=== PATIENT | female | born 1995 | race Caucasian/White ===

== ENCOUNTER 2022-01-25 21:48 | Emergency (ER) | payer OTHER, SELFPAY ==
[2022-01-25 21:49] VITALS: BP 127/86; PULSE 88; RESP 18; TEMP 37.2; O2SAT 98; BMI 25.0
[2022-01-25] MEDS: MethylPREDNISolone 125 MG/2 ML Vial IV (22:43)
[2022-01-25] MEDS: DiphenhydrAMINE 50 MG/ML Syringe IV (22:43)
[2022-01-25] MEDS: Famotidine 200 MG/20 ML MDV 40 MG in 0.9% Normal Saline (Pres. free 6 ML 300 MG IV (22:43)
--- NOTE | 2022-01-26 00:09 | EDS_ITS ---
HPI History of Present Illness Chief Complaint: Allergic Reaction Narrative Narrative: Patient is a 27-year-old female with no significant past medical history. She states today she felt very congested and was sneezing very often. She states about an hour prior to arrival she was just sitting at home trying to go to sleep when she fell like her lower lip was swollen. She states she looked in the mirror and this confirmed the lower lip swelling. She denies any trouble breathing or swallowing and she denies any known new exposures. She also denies any family history of hereditary angioedema but with the sudden onset lip swelling comes in for evaluation [facility] Medical History no medical history Home Medications prednisone 20 mg tablet 40 mg PO DAILY 5 days #10 tabs 01/26/22 [Rx Last Taken Unknown] Allergy/AdvReac Type Severity Reaction Status Date / Time Penicillins AdvReac Vomiting Verified 01/25/22 21:55 Social History Smoking Status: Never smoker [facility] ED Constitutional Constitutional ED: Denies chills or fever(s) ENT ENT ED: Reports other Details: Positive lower lip swelling ; Denies sore throat Cardiovascular Cardiovascular: Denies chest pain Respiratory/Chest Respiratory/Chest: Denies cough or dyspnea Gastrointestinal Gastrointestinal: Denies abdominal pain, diarrhea, nausea or vomiting Genitourinary Genitourinary ED: Denies dysuria Musculoskeletal Musculoskeletal: Denies myalgias Integumentary Denies rash Neurologic Neurologic: Denies headache(s) Hematologic/Lymphatic Hematologic/Lymphatic: Denies easy bleeding or easy bruising EXAM Physical Exam Const Vital Signs: 01/25/22 21:49 01/26/22 00:16 Temperature 98.9 F Temperature Source Temporal Pulse Rate 88 76 Respiratory Rate 18 16 Blood Pressure 127/86 H 92/72 Blood Pressure Mean 99 78 Pulse Ox 98 98 Oxygen Delivery Method Room Air Room Air Positive well nourished and well developed General Appearance ED: well developed HEENT Reports moist mucous membranes HEENT Narrative: There is swelling to the left half of the lower lip. Otherwise there is no tongue swelling no oral lesions no airway edema or compromise. Eyes PERRL and EOMs intact bilaterally Neck supple Resp normal respiratory effort and clear to auscultation bilaterally Cardio regular rate and regular rhythm Extremity normal to inspection Neuro oriented x3 and CN's II-XII intact bilaterally Sensorium / Orientation: alert Psych mental status grossly normal Skin no rashes or lesions noted Skin Narrative: Soft tissue swelling to the left lower lip as documented above MDM MDM MDM Narrative Medical decision making narrative: Patient presented to the ER in no acute respiratory distress but did have left lower lip swelling. As she was not in respiratory distress and did not have signs of systemic reaction I felt no need for epinephrine. Patient was given Solu-Medrol Benadryl and Pepcid secondary to the reaction. She was watched in the ER for approximately 1 hour and did have resolution of the lip swelling. She also remained in no acute respiratory distress. Therefore this time as patient has no signs of respiratory distress and resolution of symptoms she is otherwise safe for discharge Discharge Plan Triage Chief Complaint: Allergic Reaction ED Provider: Yassine Luo Dx/Rx/DC Orders Clinical Impression: Acute allergic reaction Instructions: ED Allergic Reaction Local Other Prescriptions: New prednisone 20 mg tablet 40 mg PO DAILY 5 Days Qty: 10 0RF Primary Care Provider: Care Physician,No Primary Referrals: Mikie Stovall MD [Med Staff - [employer]] - 3-5 Days if not improving Care Physician,No Primary [Primary Care Provider] - Activity Restrictions/Additional Instructions: Please take the prednisone as directed to control any further allergic reaction/inflammation. You may also take 1 Benadryl up to 3 times a day and also use 1 20mg Pepcid twice a day if you need further allergic reaction control Disposition Disposition: Home, Self Care Discharge Date/Time: 01/26/22 00:19
[2022-01-26 00:16] VITALS: BP 92/72; PULSE 76; RESP 16; O2SAT 98
== END 2022-01-26 00:19 | disposition home or self-care (01) ==
PROVIDERS: Emergency Provider Emergency Medicine; Visit Provider Emergency Medicine
DX: T78.40XA Allergy, unspecified, initial encounter (principal); X58.XXXA Exposure to other specified factors, initial encounter
CPT/HCPCS: 96374; 96375; 99281; J3490

== ENCOUNTER 2023-07-20 22:48 | Emergency (ER) | payer OTHER, SELFPAY ==
[2023-07-20 22:49] VITALS: BP 114/78; PULSE 92; RESP 16; TEMP 36.4; O2SAT 98; BMI 28.3
--- NOTE | 2023-07-20 22:54 | ED.VIS.CHEST ---
HPI History of Present Illness Chief Complaint: Chest Pain Informant: patient Onset/Context/Timing Onset: Today (30 to 40 minutes prior to arrival) Activity at onset: sudden Timing: Continuous Quality: Positive for Sharp Location: Substernal and Right Parasternal Worsened By: Movement of Arm and Movement of Torso Relieved By: Nothing Associated Symptoms: Positive for Nausea and Palpitations; Negative for Vomiting, Diaphoresis, Dyspnea, Cough, Fever, Lightheadedness or Acid Reflux Narrative Narrative: Patient presents with chest pain that began approximately 30 to 40 minutes prior to arrival. Patient states it began rather suddenly. Patient states it began while she laid down to go to bed. Patient states the pain is over the substernal and right parasternal area. Patient states it is worse with certain movements. Patient admits to some nausea but denies any vomiting. Patient admits to some palpitations where she felt like her heart was racing. Patient denies any lightheadedness or dizziness. Patient denies any shortness of breath or cough. Patient denies any fevers or chills. CVD Risk Factors: Negative for Hypertension, Diabetes, Hypercholesterolemia, Family History 1' </=55 or Smoking PE Risk Factors: Negative for Recent Travel/Surgery, Recent Immobilization, Prior DVT or PE or Cancer PFSH PFSH Medical History no medical history no medical history Home Medications drospirenone 3 mg-ethinyl estradiol 0.02 mg tablet (Lo-Zumandimine (28)) 1 tab PO DAILY 07/20/23 [History Last Taken Unknown] Allergy/AdvReac Type Severity Reaction Status Date / Time Penicillins AdvReac Vomiting Verified 07/20/23 22:51 Family History no significant family his no significant family history Surgical History no surgical history no surgical history Social History Smoking Status: Never smoker ROS ROS ED Constitutional Constitutional ED: Denies chills or fever(s) Eyes Eyes: Denies blurry vision or change in vision ENT ENT ED: Denies rhinorrhea or sore throat Cardiovascular Cardiovascular: Reports chest pain, palpitations and racing heartbeat Respiratory/Chest Respiratory/Chest: Denies cough or dyspnea Gastrointestinal Gastrointestinal: Reports nausea; Denies vomiting Genitourinary Genitourinary ED: Denies dysuria or hematuria Musculoskeletal Musculoskeletal: Reports back pain; Denies neck pain Integumentary Denies abscess or rash Neurologic Neurologic: Denies headache(s) or weakness Allergic/Immunologic Allergic/Immunologic ED: Denies mouth swelling or urticaria EXAM Physical Exam Const Vital Signs: 07/20/23 22:49 07/20/23 22:57 07/20/23 23:49 Temperature 97.5 F L Temperature Source Temporal Pulse Rate 92 73 Respiratory Rate 16 15 Respiratory Effort Normal Non-Labored Blood Pressure 114/78 Blood Pressure Mean 90 Pulse Ox 98 98 Oxygen Delivery Method Room Air Room Air 07/21/23 00:49 07/21/23 01:49 Temperature Temperature Source Pulse Rate 72 73 Respiratory Rate 17 16 Respiratory Effort Blood Pressure 105/66 Blood Pressure Mean 79 Pulse Ox 98 98 Oxygen Delivery Method Room Air Room Air Positive well nourished and well developed General Appearance ED: well developed and NAD HEENT Reports moist mucous membranes Neck supple and no JVD Chest Wall Chest Narrative: There is tenderness to palpation over the right parasternal area. There is no bony crepitance or step-off. There is no edema or ecchymosis noted. Chest: tenderness Resp normal respiratory effort and clear to auscultation bilaterally Cardio regular rate and regular rhythm GI soft to palpation, non-tender and non-distended Neuro oriented x3, CN's II-XII intact bilaterally and no sensory deficits noted Sensorium / Orientation: awake and alert Motor Exam: strength 5/5 throughout Skin no rashes or lesions noted Heart Score History: Slightly/Non-Suspicious ECG: Normal Age: </= 45 years Risk Factors: No Risk Factors Troponin: </= Normal Limit Score: 0 MDM MDM MDM Narrative Medical decision making narrative: Differential diagnosis includes cardiac dysrhythmia, cardiac ischemia, pneumonia, pneumothorax, musculoskeletal pain, anxiety, gastroesophageal reflux disease, cholecystitis, cholelithiasis, pancreatitis, peptic ulcer disease, and duodenal ulcer. EKG will be obtained to assess for cardiac dysrhythmia and cardiac ischemia. Chest x-ray will be obtained to assess for pneumonia and pneumothorax. CBC will be obtained to assess for leukocytosis and anemia. Comprehensive metabolic profile will be obtained to assess for hepatic function, renal function, and electrolyte abnormality. Lipase will be obtained to assess for pancreatitis. High-sensitivity troponin will be obtained to assess for cardiac ischemia. 2-hour repeat high-sensitivity troponin will be obtained to assess for ongoing cardiac ischemia. Patient has a Wells score of 0. I do not feel this is from a pulmonary embolism. Lab Data Attestation: I reviewed the patient's lab results. Lab results narrative: CBC was reviewed and was within normal limits. Comprehensive metabolic profile was reviewed and was within normal limits. Lipase was reviewed and was normal at 28. High-sensitivity troponin was reviewed and was normal at 3. 2-hour repeat high-sensitivity troponin was reviewed and was less than 3. Urinalysis was reviewed. There is no evidence of urinary tract infection or hematuria. Labs: Laboratory Results - last 24 hr 07/20/23 07/21/23 07/21/23 23:17 00:01 01:40 WBC 8.0 RBC 4.17 L Hgb 12.0 Hct 38.0 MCV 91.1 MCH 28.8 MCHC 31.6 L RDW Std Deviation 45.1 H RDW Coeff of Julia 13.4 Plt Count 241 MPV 10.5 Immature Gran % (Auto) 0.100 Neut % (Auto) 35.9 L Lymph % (Auto) 51.9 H Sargent % (Auto) 7.4 Eos % (Auto) 4.2 Baso % (Auto) 0.5 Absolute Neuts (auto) 2.9 Absolute Lymphs (auto) 4.16 Nucleated RBC % 0 Sodium 141 Potassium 3.9 Chloride 113 H Carbon Dioxide 23.0 Anion Gap 5 BUN 12 Creatinine 0.90 Estim Creat Clear Calc 97.27 Est GFR (MDRD) Af Amer 96 Est GFR (MDRD) Non-Af 80 BUN/Creatinine Ratio 13.3 Glucose 96 Calcium 8.9 Total Bilirubin 0.20 AST 8 L ALT 11 L Alkaline Phosphatase 45 Troponin I High Sens 3 < 3 L Total Protein 6.5 Albumin 2.8 L Globulin 3.7 Albumin/Globulin Ratio 0.8 L Lipase 28 Urine Color Yellow Urine Clarity Clear Urine pH 6.0 Ur Specific Friona 1.025 Urine Protein Negative Urine Glucose (UA) NEGATIVE Urine Ketones Negative Urine Occult Blood Negative Urine Nitrite Negative Urine Bilirubin Negative Urine Urobilinogen Normal Ur Leukocyte Esterase 25 H Urine RBC 0 SEEN Urine WBC 0 SEEN Ur Squamous Epith Cells 0-5 SEEN Ur Transition Epith Cell 0-5 SEEN Urine Bacteria 2+ Urine Mucus 0 SEEN Radiography Chest X-Ray - ED: 2 View, Read by ED Physician, Read by Radiologist and No Acute Disease Diagnostic Testing: Clinical Impression(s) from Imaging Studies Chest X-Ray 07/20/23 23:17 IMPRESSION: Normal x-ray examination of the chest. Electronically Signed: Randy Guido MD at 23:39 EST , PA and lateral chest x-ray was obtained. There are 2 views. On my independent interpretation, lung guy are clear. There is normal cardiac silhouette. Bony thorax is normal. There is no acute process noted. Radiologist also interpreted the x-ray and agrees. EKG Initial EKG: Attestation: I personally reviewed and interpreted this EKG as follows: Interpretation: Sinus Rhythm (68) and No Acute Injury Pattern Comments: EKG was obtained. On my independent interpretation, it showed a normal sinus rhythm with a rate of 68. [place] interval, QRS interval, and QTc intervals were all normal. [place] was normal. There are no acute ST or T wave changes. Prior EKG tracings: not available for review Prior: No Prior Treatment and Re-Evaluation :: Patient was feeling better on reevaluation. Patient was advised of her findings. Patient has a HEART score of 0. Patient was advised that this is low risk for acute cardiac event. Patient was instructed to follow-up with her primary care physician in 5 to 7 days for further evaluation. Patient understood and was agreeable with the plan. All questions were answered. Discharge Plan Triage Chief Complaint: Chest Pain ED Provider: Pola Martins Dx/Rx/DC Orders Clinical Impression: Chest pain Instructions: ED Chest Pain, Uncertain Cause Prescriptions: No Action drospirenone-ethinyl estradiol [Lo-Zumandimine (28)] 3-0.02 mg tablet 1 tab PO DAILY Primary Care Provider: Care Physician,No Primary Referrals: Shanelle David MD [Med Staff - Active Staff] - 5-7 Days Care Physician,No Primary [Primary Care Provider] - Disposition Disposition: Home, Self Care
--- NOTE | 2023-07-20 23:08 | EKG12_ITS ---
Test Reason : CP Blood Pressure : / mmHG Vent. Rate : 068 BPM Atrial Rate : 068 BPM P-R Int : 118 ms QRS Dur : 088 ms QT Int : 384 ms P-R-T Axes : 029 028 025 degrees QTc Int : 408 ms Normal sinus rhythm with sinus arrhythmia Possible Lateral infarct , age undetermined Abnormal ECG Confirmed by ANDREW RICHARDS, KADEN ([id number]), commissioning editor PAMELA BECKER ([id number]) on 07/22/2023 10:10:19 AM Referred By: DR CALDWELL Confirmed By:KADEN MORALES MD
--- NOTE | 2023-07-20 23:17 | RAD_ITS ---
STUDY: X-RAY CHEST REASON FOR EXAM: Female, 28 years old. Chest pain TECHNIQUE: PA and lateral views of the chest. COMPARISON: None. FINDINGS: The lungs are clear and expanded. There is no demonstrated pleural abnormality. Normal size heart. Normal mediastinum and poornima. Normal visualized pulmonary arteries. Normal visualized aortic arch and descending thoracic aorta. Normal visualized thoracic spine. Normal visualized ribs, clavicles, and shoulders. There is no demonstrated abnormality of the visualized soft tissue structures of the upper abdomen. RAD/Chest PA and Lateral IMPRESSION: Normal x-ray examination of the chest. Electronically Signed: Randy Guido MD at 23:39 EST ,
[2023-07-20 23:27] LABS: Absolute Lymphocyte Count 4.16 X10^3/uL (0.83-4.51); Absolute Neutrophil Count 2.9 X10^3/uL (2.0-7.7); Basophil# 0.04 X10^3/uL; Basophil% 0.5 % (0-1); Eosinophil# 0.34 X10^3/uL; Eosinophils% 4.2 % (0-5); Lymphocyte # 4.16 X10^3/ul (0.83-4.51); Lymphocyte % 51.9 % (19-41); Mean Corp Hgb Conc 31.6 g/dL (32-36); Mean Corpuscular Hgb 28.8 pg (27.0-32.0); Mean Corpuscular Volume 91.1 fL (81-99); Mean Platelet Vol. 10.5 fl (6.2-12.0); Monocyte# 0.59 X10^3/uL; Monocyte% 7.4 % (0-10); NRBC Flagged by Analyzer 0 % (0-5); Neutrophil # 2.88 X10^3/uL (2.7-7.7); Neutrophil % 35.9 % (47-70); Platelet Count 241 K/mm3 (150-450); RBC Distribution Width CV 13.4 % (11.6-14.6); RBC Distribution Width SD 45.1 fl (35.1-43.9); Red Blood Count 4.17 M/mm3 (4.2-5.4)
[2023-07-20 23:46] LABS: ALB/GLOB Ratio 0.8 RATIO (0.9-2.4); AST(SGOT) 8 U/L (15-37); Alanine Aminotransfer ALT/SGPT 11 U/L (13-56); Albumin, Serum 2.8 g/dL (3.2-5.0); Alkaline Phosphatase 45 U/L (45-117); Anion Gap 5 (5-15); BUN 12 mg/dL (7-18); BUN/Creat Ratio 13.3 RATIO (10-20); Calcium,Total 8.9 mg/dL (8.5-10.1); Chloride 113 mmol/L (98-107); EST Glomerular Filtration Rate 80 mL/min (>60); Est Glom Filt Rate - Afr Amer 96 mL/min (>60); Estimated Creatinine Clearance 97.27 ml/min; Globulin 3.7 g/dL (2.2-4.2); Glucose 96 mg/dL (74-106); Lipase 28 U/L (13-75); Potassium 3.9 mmol/L (3.5-5.1); Protein, Total 6.5 g/dL (6.4-8.2); Sodium Level 141 mmol/L (136-145); Troponin-I HS (w/2H Reflex) 3 pg/mL (3.0-54.0)
[2023-07-20 23:49] VITALS: PULSE 73; RESP 15; O2SAT 98
[2023-07-21 00:11] LABS: Mucous, Urine 0 SEEN /hpf (<or=2+); Red Blood Cells-Urine 0 SEEN /hpf (0-5); White Blood Cells 0 SEEN /hpf (0-5)
[2023-07-21 00:41] LABS: Color, Urine Yellow (Yellow); Glucose, Dipstick NEGATIVE (Normal); Urine Clarity Clear (Clear)
[2023-07-21 00:42] LABS: Ketone-Dipstick Negative (Negative); Leukocyte Esterase-Dipstick 25 /ul (Negative); Nitrite-Dipstick Negative (Negative); Occult Blood-Urine Negative /ul (Negative); Protein-Dipstick Negative (Negative); Specific Gravity, Urine 1.025 (1.002-1.030); Urine Bilirubin Dipstick Negative (Negative); Urine Urobilinogen Normal (Normal)
[2023-07-21 00:44] LABS: Bacteria 2+ /hpf (None Seen); Squamous Epithelial Cells - UA 0-5 SEEN /hpf (5-10); Transitional Epithelial - Ur 0-5 SEEN /hpf (0-5)
[2023-07-21 00:49] VITALS: PULSE 72; RESP 17; O2SAT 98
[2023-07-21 01:20] LABS: Reflex Troponin-HS? (from REC) Y
[2023-07-21 01:49] VITALS: BP 105/66; PULSE 73; RESP 16; O2SAT 98
[2023-07-21 02:04] LABS: Troponin-I HS < 3 pg/mL (3.0-54.0)
[2023-07-21 02:57] VITALS: BP 106/63; PULSE 68; RESP 17; TEMP 36.1; O2SAT 99
== END 2023-07-21 02:57 | disposition home or self-care (01) ==
PROVIDERS: Emergency Provider Emergency Medicine; Visit Provider Emergency Medicine
DX: R07.9 Chest pain, unspecified (principal)
CPT/HCPCS: 71046; 80053; 81001; 83690; 84484; 85025; 93005; 99284; A4216

== ENCOUNTER → 2024-02-20 | Outpatient (CLI) | payer OTHER, SELFPAY ==
[2024-02-20 17:59] LABS: Absolute Lymphocyte Count 3.77 X10^3/uL (0.83-4.51); Absolute Neutrophil Count 4.9 X10^3/uL (2.0-7.7); Basophil# 0.04 X10^3/uL; Basophil% 0.4 % (0-1); Eosinophil# 0.27 X10^3/uL; Eosinophils% 2.8 % (0-5); Hematocrit 38.6 % (37-47); Hemoglobin 12.2 g/dL (12.0-15.0); Lymphocyte # 3.77 X10^3/ul (0.83-4.51); Mean Corp Hgb Conc 31.6 g/dL (32-36); Mean Corpuscular Hgb 29.1 pg (27.0-32.0); Mean Corpuscular Volume 92.1 fL (81-99); Mean Platelet Vol. 11.7 fl (6.2-12.0); Monocyte# 0.64 X10^3/uL; Monocyte% 6.6 % (0-10); NRBC Flagged by Analyzer 0 % (0-5); Neutrophil # 4.93 X10^3/uL (2.7-7.7); Platelet Count 163 K/mm3 (150-450); RBC Distribution Width CV 12.7 % (11.6-14.6); RBC Distribution Width SD 42.7 fl (35.1-43.9); Red Blood Count 4.19 M/mm3 (4.2-5.4); White Blood Count 9.7 K/mm3 (4.4-11.0)
== END | disposition home or self-care (01) ==
LOC: MFPLAB 15:39
PROVIDERS: PCP Family Medicine; Visit Provider Family Medicine
DX: N92.0 Excessive and frequent menstruation with regular cycle (principal)
CPT/HCPCS: 36415; 84443; 85025

== ENCOUNTER → 2024-10-27 | Outpatient (CLI) | payer OTHER, SELFPAY ==
[2024-10-30 06:08] LABS: Chlamydia By Nucleic Acid AMP Negative (Negative); Gonococcus By Nucleic Acid AMP Negative (Negative)
== END | disposition home or self-care (01) ==
LOC: LABSPEC 14:58
PROVIDERS: PCP Family Medicine; Referring Provider Obstetrics & Gynecology; Visit Provider Obstetrics & Gynecology
DX: Z34.90 Encounter for supervision of normal pregnancy, unspecified, unspecified trimester (principal)
CPT/HCPCS: 87086; 87088; 87491; 87591

== ENCOUNTER → 2024-11-25 | Outpatient (CLI) | payer OTHER, SELFPAY ==
[2024-11-25 12:07] LABS: Absolute Lymphocyte Count 2.35 X10^3/uL (0.83-4.51); Absolute Neutrophil Count 8.4 X10^3/uL (2.0-7.7); Basophil# 0.03 X10^3/uL; Basophil% 0.3 % (0-1); Eosinophil# 0.16 X10^3/uL; Eosinophils% 1.4 % (0-5); Hematocrit 38.4 % (37-47); Hemoglobin 12.9 g/dL (12.0-15.0); Lymphocyte # 2.35 X10^3/ul (0.83-4.51); Lymphocyte % 20.2 % (19-41); Mean Corp Hgb Conc 33.6 g/dL (32-36); Mean Corpuscular Hgb 30.5 pg (27.0-32.0); Mean Corpuscular Volume 90.8 fL (81-99); Mean Platelet Vol. 10.5 fl (6.2-12.0); Monocyte# 0.65 X10^3/uL; Monocyte% 5.6 % (0-10); NRBC Flagged by Analyzer 0 % (0-5); Neutrophil # 8.39 X10^3/uL (2.7-7.7); Neutrophil % 72.2 % (47-70); Platelet Count 223 K/mm3 (150-450); RBC Distribution Width CV 13.2 % (11.6-14.6); RBC Distribution Width SD 43.2 fl (35.1-43.9); Red Blood Count 4.23 M/mm3 (4.2-5.4); White Blood Count 11.6 K/mm3 (4.4-11.0)
[2024-11-25 12:53] LABS: HIV Nonreactive (Nonreactive); Hepatitis B Surface Antigen Nonreactive (Nonreactive); Hepatitis C Antibody Nonreactive (Nonreactive); Rubella IgG REAC (Nonreactive); Syphilis Antibodies Nonreactive (Nonreactive)
== END | disposition home or self-care (01) ==
PROVIDERS: Obstetrics & Gynecology; PCP Family Medicine; Referring Provider Obstetrics & Gynecology; Visit Provider Obstetrics & Gynecology
DX: Z34.90 Encounter for supervision of normal pregnancy, unspecified, unspecified trimester (principal)
CPT/HCPCS: 36415; 85025; 86703; 86762; 86780; 86803; 86850; 86900; 86901; 87340

== ENCOUNTER → 2025-01-13 | Outpatient (CLI) | payer OTHER, SELFPAY ==
[2025-01-13 14:28] LABS: ROM Internal Control Test YES-OK TO RESULT pt. (Internal QC); ROM Patient Test Negative (Negative); Record Kit Lot#, ROM+ K3358
--- OUTSIDE RECORDS SUMMARY | 2025-01-13 20:10 | XMS RPT_ITS | CCD ---
Author Organization [facility] CliniSyde Care Team Providers Care Line Repairer Name Role Phone Taya RICHARDS, Dr. Chad Garcia Primary Care Provider Taya RICHARDS, Dr. Chad Garcia Referring Provider Chris RICHARDS, Dr. Morocho Attending Provider Chris RICHARDS, Dr. Morocho Referring Provider Dr. Sabina Paredes DO Attending Provider Dr. Sabina Paredes DO Referring Provider Kristen Rios CNM Attending Provider [phone] Bailee Perez Attending Unavailable Bailee Perez Referring Unavailable Schjadener, Chad E Primary Care Unavailable Chad Bain E Referring Unavailable Schjorge, Chad E Primary Care Unavailable Sabina Paredes Attending Unavailanup e SchinChad mei Referring Unavailable Schinner, Chad E Primary Care Unavailable Kristen Rios Attending Unavailable SchinnerChad Attending Unavailable Schinner, Chad E Primary Care Unavailable Schinner, Chad E Referring Unavailable Schinner, Chad E Primary Care Unavailable Manfred Phan Attending Unavailable Bailee Perez Attending Unavailable Schinner, Chad E Referring Unavailable Schinner, Chad E Primary Care Unavailable Bailee Perez Attending Unavailable Danninner, Chad E Referring Unavailable Schinner, Chad E Primary Care Unavailable Sabina Paredes Referring Unavailabl e Schinner, Chad E Primary Care Unavailable Sabina Paredes Attending Unavailabl e SchinnerChad E Attending Unavailable Schinner, Chad E Primary Care Unavailable Allergies Allergy Classification Reported Allergen(s) Allergy Type Date of Onset Reaction(s) Facility (8 sources) Penicillins Propensity to adverse reactions 2 Vomiting [facility] Comment on above: Tried sm dose in Apr 2024 w/o reaction - may have outgrown allergy (1 source) Penicillins Drug allergy (disorder) 5 [facility] Repository Medications Current Medications Medication Drug Class(es) Dates Sig (Normalized) Sig (Original) docosahexaenoic acid 200 mg oral capsule (6 sources) Start: 10-23-2024 Docosahexaenoic Acid ( Dha) 200 mg capsule Active mg PO October 23, 2024 12:00am Completed/Discontinued Medications Medication Drug Class(es) Dates Sig (Normalized) Sig (Original) cefdinir 300 mg oral capsule (6 sources) Cephalosporin Antibacterial Start: 04-02-2024 End: 04-12-2024 take 1 capsule by mouth every twelve hours Cefdinir 300 mg capsule Discontinued 300 mg PO Q12H 20 10 0 April 02, 2024 12:00am April 11, 2024 1:00am April 12, 2024 1:08am Drospirenone-Ethi nyl Estradiol [Drospirenone 3 Mg-Ethinyl Estradiol 0.02 Mg Tablet] (7 sources) Progestin, Estrogen Start: 07-20-2023 End: 10-23-2024 take 3 tablets by mouth once daily Drospirenone-Ethin yl Estradiol [Drospirenone 3 Mg-Ethinyl Estradiol 0.02 Mg Tablet] (Drospirenone 3 Mg-Ethinyl Estradiol 0.02 Mg ) 3-0.02 mg tablet Discontinued 1 {tbl} PO DAILY July 20, 2023 1:00am October 23, 2024 8:22am Start: 07-20-2023 Drospirenone-E thinyl Estradiol [Drospirenone 3 Mg-Ethinyl Estradiol 0.02 Mg Tablet] (Drospirenone 3 Mg-Ethinyl Estradiol 0.02 Mg ) 3-0.02 mg tablet Active 1 TABLET PO DAILY July 20, 2023 12:00am predniSONE 20 mg oral tablet (8 sources) Start: 01-26-2022 End: 07-20-2023 take 2 tablets by mouth once daily Prednisone 20 mg tablet Discontinued 40 mg PO DAILY 10 5 0 January 26, 2022 12:00am July 20, 2023 11:58pm Start: 01-26-2022 End: 07-20-2023 take 40 mg by mouth once daily Prednisone Discontinued 40 MG PO DAILY 10 January 25, 2022 11:00pm July 20, 2023 10:58pm Problems Problem Classification Problem Date Documented Da te Episodic/Chronic Allergic reactions (8 sources) Acute allergic reaction; Translations: [Allergy, unspecified, initial encounter] 02-03-2022 Episodic Menstrual disorders (1 source) Excessive and frequent menstruation with regular cycle; Translations: [Excessive and frequent menstruation with regular cycle] Onset: 03-16-2024 Chronic Nonspecific chest pain (7 sources) Chest pain; Translations: [Chest pain, unspecified] 07-21-2023 Episodic Other and delivery including normal (20 sources) Normal ; Translations: [Encounter for supervision of normal , unspecified, unspecified trimester] Onset: 11-30-2024 10-27-2024 Episodic Comment on above: ANN 06/14/25Emmett: Mickey Discussed genetic/ca rrier testing - undecgaudencio Discussed genetic/ca rrier testing, NIPT low risk, male Other upper respiratory infections (6 sources) Acute pharyngitis; Translations: [Acute pharyngitis, unspecified] 10-23-2024 Episodic Residual codes; unclassified (1 source) 11 weeks gestation of ; Translations: [11 weeks gestation of ] Onset: 11-25-2024 Episodic Results Test Name Value Interpretation Reference Range Facility Laboratory - Chemistry and C hemistry - challengeOrdered By: Kristen Rios on 12-25-2024 Glucose Ql (U) Negative [facility] Laboratory - UrinalysisOrder ed By: Kristen Rios on 12-25-2024 Protein Ql (U) Negative [facility] Studio Associate Office Visit Reporton 12-25-2024 Studio Associate Office Visit Report [facility] [address], [address] [place] [address] OFFICE VISIT Date of Service: 12/25/24 MR#: [id number] Acct: [id number] Name: BRAVO SULLIVAN Rep #: [id number] : 1995 Provider: DAMASO kang Age/Sex: 29/F Location: [facility] [place] Status: Signed Intake Vital Signs 10/27/24 11:49 11/25/24 10:48 12/25/24 15:28 Height 5 ft 5 in 5 ft 5 in 5 ft 5 in Weight: 169 lb BMI 28.1 BP 116/76 Intake Visit Reasons: 15wk ob Switch Box Installer Required: No Is patient in pain?: No Allergies Penicillins Adverse Reaction (Verified 12/25/24 15:29) Vomiting Medications ???Medication ???Instructions ???Recorded ???Confirmed ???Type docosahexaenoic acid 200 mg mg PO 10/23/24 12/25/24 History capsule ( DHA) Last Menstrual Period: 09/07/24 Zika: Zika virus screening: Negative : No Have you fallen in the past year?: No PFSH PFSH Surgical History Rover teeth removed Family History Mother Breast cancer Grandmother Multiple sclerosis Grandmother Ovarian cancer Social History adopted: No household members: spouse housing: house current occupational status: employed 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 current occupational exposures/hazards: No pets and animals: No history of recent travel: Yes ([place]) out of state: Yes out of country: No sexually active: Yes Smoking Status: Never smoker second hand exposure: No alcohol intake: current alcohol intake frequency: holidays/special occasions only details: Not while substance use type: does not use well-balanced diet: daily or most days caffeine: Yes Type: coffee eating out: 1-3 times/week during the past year weight has: remained stable what type of physical activity do you participate in: walking frequency: 5-6 times per week duration: 15-30 minutes/day sajan/restorationist: Caodaism seatbelt use: always do you feel safe at home: Yes additional social history: : [employer] History 1 Elective abortions Hx Para Spontaneous abortions 0 Hx # Term Pregnancies Ectopic pregnancies 0 Hx # Pregnancies Multiple births # of living children HPI 15wk ob Details: BRAVO SULLIVAN is a 29 year old who presents for routine OB visit. OB Visit ANN Calculator Estimated Delivery Date Method Current WG Current Estimate 06/14/25 LMP (Certain) 15w 4d Other Estimates 06/15/25 Ultrasound #1 15w 3d Expected Delivery Route/Plan Labor Preferences- CB/BF classes: [] labor support person: [] labor intervention preferences: [] pain management options preferred: [] cut cord/dad catch: [] : [] PP control planned: [] discussed possible routes of delivery and associated risks: [] special requests: [] Specific Issue/Plans Covid status: [] Flu vaccine: [] Tdap vaccine: [] Rhogam: [] LARC form signed: [] Problem list reviewed and updated with the most current plan of care details and appropriate orders placed. Relevant counseling for the gestational age provided. Continue routine care and follow up unless otherwise noted in visit notes/problem list details Initial Weight: Not Recorded Date -???-???-???-???-?? ?-???-???-???-???-? ??-???-???- EGA Weight BP Urine Prot -???-???-???-???-?? ?-???-???-???-???-? ??-???-???- Glucose FHR FuHt Pres Dilation -???-???-???-???-?? ?-???-???-???-???-? ??-???-???- Effaced St Visit Note 10/27/24 -???-???-???-???-?? ?-???-???-???-???-? ??-???-???- 7w 1d 174 lb 115/75 -???-???-???-???-?? ?-???-???-???-???-? ??-???-???- 170 -???-???-???-???-?? ?-???-???-???-???-? ??-???-???- SM- CRL cons with LMP 11/25/24 -???-???-???-???-?? ?-???-???-???-???-? ??-???-???- 11w 2d 170 lb 8 oz 103/64 Negative -???-???-???-???-?? ?-???-???-???-???-? ??-???-???- Negative 165 -???-???-???-???-?? ?-???-???-???-???-? ??-???-???- JV- CRL angela uring 11 weeks 5 days. nipt today. 12/25/24 -???-???-???-???-?? ?-???-???-???-???-? ??-???-???- 15w 4d 169 lb 116/76 Negative -???-???-???-???-?? ?-???-???-???-???-? ??-???-???- Negative 155 -???-???-???-???-?? ?-???-???-???-???-? ??-???-???- LC- no vb/cr amping. declines afp ACOG First Trimester First Trimester: Desire for , Alcohol, Tobacco Cessation, Illicit/Recreationa l Drug/Substance Use, Intimate Partner Violence, Barriers to care, Unstable Housing, Communication B arriers, Environmental/Work Hazards, Anticipated Course of Care, Toxoplasmosis Precations, Use of Any medications, Sexual activity, Exercise, Dental Care, Sauna/Hot tub use (more content not included)... Normal [facility] Absolute lymphocyte countOrd ered By: Bailee Perez on 11-25-2024 Lymphocytes Auto (Unsp spec) [#/Vol] 2.35 10*3/uL 0.83-4.51 [facility] Absolute neutrophil countOrd ered By: Bailee Perez on 11-25-2024 Neutrophils (Bld) [#/Vol] 8.4 10*3/uL High 2.0-7.7 [facility] Automated lymphocyte count a s percentage of total leukocytesOrdered By: Bailee Perez on 11-25-2024 Lymphocytes/100 WBC Auto (Unsp spec) 20.2 % 19-41 [facility] Basophil percentageOrdered B y: Bailee Perez on 11-25-2024 Basophils/100 WBC (Bld) 0.3 % 0-1 [facility] CBC W/Diff, Automatedon 11-02 Absolute Lymph 2.35 X10 3/uL Normal 0.83-4.51 [facility] Comment on above: Performed By: #### L 3890.6301, L509.4006, L3890.6102, L509.8002, BTS, L3890.6006, L100.0100 #### [facility] Laboratory [address] [place], [address] Absolute Neut 8.4 X10 3/uL High 2.0-7.7 [facility] Comment on above: Performed By: #### L 3890.6301, L509.4006, L3890.6102, L509.8002, BTS, L3890.6006, L100.0100 #### [facility] [address] [place], [address] Basophils/100 WBC (Bld) 0.3 % Normal 0-1 [facility] Comment on above: Performed By: #### L 3890.6301, L509.4006, L3890.6102, L509.8002, BTS, L3890.6006, L100.0100 #### [facility] [address] [place], [address] Eosinophils/100 WBC (Bld) 1.4 % Normal 0-5 [facility] Comment on above: Performed By: #### L 3890.6301, L509.4006, L3890.6102, L509.8002, BTS, L3890.6006, L100.0100 #### [facility] [address] [place], [address] Erythrocyte distribution width (RBC) [Ratio] 13.2 % Normal 11.6-14.6 [facility] Comment on above: Performed By: #### L 3890.6301, L509.4006, L3890.6102, L509.8002, BTS, L3890.6006, L100.0100 #### [facility] [address] [place], [address] Hematocrit (Bld) [Volume fraction] 38.4 % Normal 37-47 [facility] Comment on above: Performed By: #### L 3890.6301, L509.4006, L3890.6102, L509.8002, BTS, L3890.6006, L100.0100 #### [facility] [address] [place], [address] Hemoglobin (Bld) [Mass/Vol] 12.9 g/dL Normal 12.0-15.0 [facility] Comment on above: Performed By: #### L 3890.6301, L509.4006, L3890.6102, L509.8002, BTS, L3890.6006, L100.0100 #### [facility] [address] [place], [address] IG% 0.300 Normal 0.0-0.9 [facility] Comment on above: Result Comment: IG% - Immature Granulocytes (promyelocytes, myelocytes and metamyelocytes) > 1% indicates that a LEFT SHIFT is Present. Performed By: #### L 3890.6301, L509.4006, L3890.6102, L509.8002, BTS, L3890.6006, L100.0100 #### [facility] [address] [place], [address] Lymphocytes/100 WBC (Bld) 20.2 % Normal 19-41 [facility] Comment on above: Performed By: #### L 3890.6301, L509.4006, L3890.6102, L509.8002, BTS, L3890.6006, L100.0100 #### [facility] [address] [place], [address] MCH (RBC) [Entitic mass] 30.5 pg Normal 27.0-32.0 [facility] Comment on above: Performed By: #### L 3890.6301, L509.4006, L3890.6102, L509.8002, BTS, L3890.6006, L100.0100 #### [facility] [address] [place], [address] MCHC (RBC) [Mass/Vol] 33.6 g/dL Normal 32-36 [facility] Comment on above: Performed By: #### L 3890.6301, L509.4006, L3890.6102, L509.8002, BTS, L3890.6006, L100.0100 #### [facility] [address] [place], [address] MCV (RBC) [Entitic vol] 90.8 fL Normal 81-99 [facility] Comment on above: Performed By: #### L 3890.6301, L509.4006, L3890.6102, L509.8002, BTS, L3890.6006, L100.0100 #### [facility] [address] [place], [address] Monocytes/100 WBC (Bld) 5.6 % Normal 0-10 [facility] Comment on above: Performed By: #### L 3890.6301, L509.4006, L3890.6102, L509.8002, BTS, L3890.6006, L100.0100 #### [facility] [address] [place], [address] Neutrophils/100 WBC (Bld) 72.2 % High 47-70 [facility] Comment on above: Performed By: #### L 3890.6301, L509.4006, L3890.6102, L509.8002, BTS, L3890.6006, L100.0100 #### [facility] [address] [place], [address] Nucleated RBC (Bld) [#/Vol] 0 10*3/uL Normal 0-5 [facility] Comment on above: Performed By: #### L 3890.6301, L509.4006, L3890.6102, L509.8002, BTS, L3890.6006, L100.0100 #### [facility] [address] [place], [address] Platelet mean volume (Bld) [Entitic vol] 10.5 fL Normal 6.2-12.0 [facility] Comment on above: Performed By: #### L 3890.6301, L509.4006, L3890.6102, L509.8002, BTS, L3890.6006, L100.0100 #### [facility] [address] [place], [address] Platelets (Bld) [#/Vol] 223 10*3/uL Normal 150-450 [facility] Comment on above: Performed By: #### L 3890.6301, L509.4006, L3890.6102, L509.8002, BTS, L3890.6006, L100.0100 #### [facility] [address] [place], [address] RBC (Bld) [#/Vol] 4.23 10*6/uL Normal 4.2-5.4 [facility] Comment on above: Performed By: #### L 3890.6301, L509.4006, L3890.6102, L509.8002, BTS, L3890.6006, L100.0100 #### [facility] [address] [place], [address] RDW SD 43.2 fl Normal 35.1-43.9 [facility] Comment on above: Performed By: #### L 3890.6301, L509.4006, L3890.6102, L509.8002, BTS, L3890.6006, L100.0100 #### [facility] [address] [place], [address] WBC (Bld) [#/Vol] 11.6 10*3/uL High 4.4-11.0 [facility] Comment on above: Performed By: #### L 3890.6301, L509.4006, L3890.6102, L509.8002, BTS, L3890.6006, L100.0100 #### [facility] [address] [place], [address] Eosinophil percentageOrdered By: Bailee Perez on 11-25-2024 Eosinophils/100 WBC (Bld) 1.4 % 0-5 [facility] Erythrocyte distribution wid th ratioOrdered By: Bailee Perez on 11-25-2024 Erythrocyte distribution width (RBC) [Ratio] 13.2 % 11.6-14.6 [facility] Erythrocyte distribution wid th standard deviationOrdered By: Bailee Perez on 11-25-2024 Erythrocyte distribution width (RBC) [Ratio] 43.2 fl 35.1-43.9 [facility] HIVon 11-25-2024 HIV Non-Reactive Normal Nonreactive [facility] Comment on above: Result Comment: Non- Reactive Reactive Repeatedly reactive samples must be confirmed according to CDC recommended confirmatory algorithms. The subresults for either HIVAG or AHIV can be used as an aid in the selection of the confirmation algorithm for reactive samples. Send out specimens with Reactive results to [facility] for confirmation. Order the HIV antibody detection and differentiation: lc#[id number] Performed By: #### L 3890.6301, L509.4006, L3890.6102, L509.8002, BTS, L3890.6006, L100.0100 ####[facility] [address] [facility] [place], [address] Hematocrit Auto (Bld) [Volum e fraction]Ordered By: Bailee Perez on 11-25-2024 Hematocrit (Bld) [Volume fraction] 38.4 % 37-47 [facility] Hemoglobin measurementOrdere d By: Bailee Perez on 11-25-2024 Hemoglobin (Bld) [Mass/Vol] 12.9 g/dL 12.0-15.0 [facility] Hepatitis C Antibodyon 11-25 Hepatitis C Ab Non-Reactive Normal Nonreactive [facility] Comment on above: Result Comment: Reac tive: Presumptive evidence of antibodies to HCV. Follow CDC recommendations for supplemental testing. Non-Reactive: Antibodies to HCV were not detected; does not exclude the possibility of exposure to HCV Reactive Results are presumptive evidence of antibodies to HCV. Follow CDC recommendations for supplemental testing. Order confirmation testing: HCV Quant by PCR testing - HCVPCR #[id number] Non Reactive: < 0.8 Equivocal: >/= 0.8 to < 1.0 Reactive: >/= 1.0 The CDC requires that a reactive/equivocal HCV antibody result be sent out for confirmation. HCV Quant by PCR testing. Performed By: #### L 3890.6301, L509.4006, L3890.6102, L509.8002, BTS, L3890.6006, L100.0100 ####[facility] [address] [place], [address] Immature granulocytes/100 WB C Auto (Bld)Ordered By: Bailee Perez on 11-25-2024 Immature granulocytes/100 WBC (Bld) 0.300 % 0.0-0.9 [facility] Comment on above: IG% - Immature Granu locytes (promyelocytes, myelocytes and metamyelocytes) > 1% indicates that a LEFT SHIFT is Present. L3890.6102on 11-25-2024 HEP B Surf Ag Non-Reactive Normal Nonreactive [facility] Comment on above: Result Comment: Reac tive: Presumptive evidence of HBV. Repeatedly reactive samples must be confirmed using a neutralization test ([employer] HBsAg Confirmatory Test) Non-Reactive: HBsAg not detected; does not exclude the possibility of exposure to HBV Performed By: #### L 3890.6301, L509.4006, L3890.6102, L509.8002, BTS, L3890.6006, L100.0100 ####[facility] [address] [place], [place], [id number] L509.4006on 11-25-2024 Rubella IgG REAC Normal Nonreactive [facility] Comment on above: Result Comment: Anti body Result: Interpretation Non-Reactive: Non-Immune Reactive: Immune The following results were obtained with the [employer] Rubella IgG assay. Results from assays of other manufacturers cannot be used interchangeably. Performed By: #### L 3890.6301, L509.4006, L3890.6102, L509.8002, BTS, L3890.6006, L100.0100 ####[facility] [address] [place], [place], [id number] Laboratory - Chemistry and C hemistry - challengeOrdered By: Sabina Johnston on 11-25-2024 Glucose Ql (U) Negative [facility] Laboratory - Microbiology an d Antimicrobial susceptibilityOrdered By: Bailee Perez on 11-25-2024 HBV surface Ag Ql (S) Non-Reactive Nonreactive [facility] Comment on above: Reactive: Presumptiv e evidence of HBV. Repeatedly reactive samples must be confirmed using a neutralization test ([employer] HBsAg Confirmatory Test)Non-Reactive: HBsAg not detected; does not exclude the possibility of exposure to HBV Laboratory - UrinalysisOrder ed By: Sabina Johnston on 11-25-2024 Protein Ql (U) Negative [facility] MCV (mean corpuscular volume ) determinationOrdered By: Bailee Perez on 11-25-2024 MCV (RBC) [Entitic vol] 90.8 fL 81-99 [facility] Mean corpuscular hemoglobin (MCH) determinationOrdered By: Bailee Perez on 11-25-2024 MCH (RBC) [Entitic mass] 30.5 pg 27.0-32.0 [facility] Mean corpuscular hemoglobin concentration (MCHC) determinationOrdered By: Bailee Perez on 11-25-2024 MCHC (RBC) [Mass/Vol] 33.6 g/dL 32-36 [facility] Mean platelet volume determi nationOrdered By: Bailee Perez on 11-25-2024 Platelet mean volume (Bld) [Entitic vol] 10.5 fL 6.2-12.0 [facility] Monocyte percentageOrdered B y: Bailee Perez on 11-25-2024 Monocytes/100 WBC (Bld) 5.6 % 0-10 [facility] NATERAon 11-25-2024 NATURA SEE SCANNED REPORT Normal [facility] Comment on above: Performed By: #### L 900.0098 #### [facility] [address] [place], [place] [address] [place], [place], [id number] Neutrophil percentageOrdered By: Bailee Perez on 11-25-2024 Neutrophils/100 WBC (Bld) 72.2 % High 47-70 [facility] No Panel InformationOrdered By: Bailee Perez on 11-25-2024 HIV (1&2) Antibody Non-Reactive Nonreactive [facility] Comment on above: Non-ReactiveReactive Repeatedly reactive samples must be confirmed according to CDC recommended confirmatory algorithms. The subresults for either HIVAG or AHIV can be used as an aid in the selection of the confirmation algorithm for reactive samples.Send out specimens with Reactive results to [facility] for confirmation.Order the HIV antibody detection and differentiation: lc#[id number] Nucleated red blood cell per centageOrdered By: Bailee Perez on 11-25-2024 Nucleated RBC/100 WBC (Bld) [Ratio] 0 % 0-5 [facility] Studio Associate Office Visit Reporton 11-25-2024 Studio Associate Office Visit Report [facility] [address], [address] [place] [address] OFFICE VISIT Date of Service: 11/25/24 MR#: [id number] Acct: [id number] Name: BRAVO SULLIVAN Rep #: [id number] : 1995 Provider: Dr. Sabina De La Garza DO Age/Sex: 29/F Location: [facility] [place] Status: Signed Intake Vital Signs 10/22/24 12:51 10/27/24 11:49 11/25/24 10:48 11/25/24 10:48 Height 5 ft 5 in 5 ft 5 in 5 ft 5 in 5 ft 5 in Weight: 170 lb 8 oz BMI 28.3 BP 103/64 Intake Visit Reasons: 11wk OB Switch Box Installer Required: No Is patient in pain?: No Allergies Penicillins Adverse Reaction (Verified 11/25/24 10:47) Vomiting Medications ???Medication ???Instructions ???Recorded ???Confirmed ???Type docosahexaenoic acid 200 mg mg PO 10/23/24 11/25/24 History capsule ( DHA) Last Menstrual Period: 09/07/24 Zika: Zika virus screening: Negative : No PFSH PFSH Surgical History Rover teeth removed Family History Mother Breast cancer Grandmother Multiple sclerosis Grandmother Ovarian cancer Social History adopted: No household members: spouse housing: house current occupational status: employed 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: No pets and animals: No history of recent travel: Yes ([place]) out of state: Yes out of country: No sexually active: Yes Smoking Status: Never smoker second hand exposure: No alcohol intake: current alcohol intake frequency: holidays/special occasions only details: Not while substance use type: does not use well-balanced diet: daily or most days caffeine: Yes Type: coffee eating out: 1-3 times/week during the past year weight has: remained stable what type of physical activity do you participate in: walking frequency: 5-6 times per week duration: 15-30 minutes/day sajan/restorationist: Caodaism seatbelt use: always do you feel safe at home: Yes additional social history: : Mickey - [employer] Profes History 1 Elective abortions Hx Para Spontaneous abortions 0 Hx # Term Pregnancies Ectopic pregnancies 0 Hx # Pregnancies Multiple births # of living children HPI 11wk OB Details: BRAVO SULLIVAN is a 29 year old who presents for routine OB visit. OB Visit ANN Calculator Estimated Delivery Date Method Current WG Current Estimate 06/14/25 LMP (Certain) 11w 2d Other Estimates 06/15/25 Ultrasound #1 11w 1d Initial Weight: Not Recorded Date -???-???-???-???-?? ?-???-???-???-???-? ??-???-???- EGA Weight BP Urine Prot -???-???-???-???-?? ?-???-???-???-???-? ??-???-???- Glucose FHR FuHt Pres Dilation -???-???-???-???-?? ?-???-???-???-???-? ??-???-???- Effaced St Visit Note 10/27/24 -???-???-???-???-?? ?-???-???-???-???-? ??-???-???- 7w 1d 174 lb 115/75 -???-???-???-???-?? ?-???-???-???-???-? ??-???-???- 170 -???-???-???-???-?? ?-???-???-???-???-? ??-???-???- - [facility] cons with LMP 11/25/24 -???-???-???-???-?? ?-???-???-???-???-? ??-???-???- 11w 2d 170 lb 8 oz 103/64 Negative -???-???-???-???-?? ?-???-???-???-???-? ??-???-???- Negative 165 -???-???-???-???-?? ?-???-???-???-???-? ??-???-???- JV- CRL angela uring 11 weeks 5 days. nipt today. ACOG First Trimester First Trimester: Desire for , Alcohol, Tobacco Cessation, Illicit/Recreationa l Drug/Substance Use, Intimate Partner Violence, Barriers to care, Unstable Housing, Communication Barriers, Environmental/Work Hazards, Anticipated Course of Care, Toxoplasmosis Precations, Use of Any medications, Sexual activity, Exercise, Dental Care, Sauna/Hot tub use, Seat Belt use, Childbirth classes/Hospital facilities, Travel, Indications for Ultrasound and Screening for Aneuploidy; Discussed Results POC Urinalysis 2 Dip (Clinic) Office Urine Glucose Negative Last Edit by Arabella Cardenas on 11/25/24 10:53 Office Urine Protein Negative Last Edit by Arabella Cardenas on 11/25/24 10:53 Coding Level of Care Code OB Routine Diagnoses Supervision of normal Z34.90 11 weeks gestation of Z3A.11 Weeks of gestation: 11 weeks Assessment and Plan Assessment and Plan (1) Supervision of normal : Status: Acute Comment: ANN 06/14/25, : Mickey (2) : Status: Acute Qualifiers: Weeks of gestation: 11 weeks Qualified Code(s): Z3A.11 - 11 weeks gestation of Comment: Discussed genetic/carrier testing - undecided Orders: Orders POC Urinalysis 2 Dip (Clinic) Today 11/25/24 1114 Date (more content not included)... Normal [facility] Platelet countOrdered By: Travis melissa Trevinny on 11-25-2024 Platelets (Bld) [#/Vol] 223 10*3/uL 150-450 [facility] RBC Auto (Bld) [#/Vol]Ordere d By: Bailee Chris on 11-25-2024 RBC (Bld) [#/Vol] 4.23 10*6/uL 4.2-5.4 [facility] Syphilis Antibodieson 2024 Syphilis Abs Non-Reactive Normal Nonreactive [facility] Comment on above: Performed By: #### L 3890.6301, L509.4006, L3890.6102, L509.8002, BTS, L3890.6006, L100.0100 ####[facility] [address] [place], [address] Type AND Screenon 11-25-2024 Ab SCREEN GEL Negative Normal [facility] Comment on above: Order Comment: PN Performed By: #### L 3890.6301, L509.4006, L3890.6102, L509.8002, BTS, L3890.6006, L100.0100 #### [facility] [address] [place], [address] White blood cell (WBC) count Ordered By: Bailee Perez on 11-25-2024 WBC (Bld) [#/Vol] 11.6 10*3/uL High 4.4-11.0 [facility] Chlamydia/GC HIRO aptimaon CHLAMY,NUC ACID Negative Normal Negative [facility] Comment on above: Performed By: #### L 7000.1800, M100.2200 ####[facility] [address] [place], [address] GC BY NUC ACID Negative Normal Negative [facility] Comment on above: Result Comment: Perf ormed at: =G - [facility] [address] [id number] [employer]worker Bul[employer]: Chandni Barry MD, Phone: [phone] Performed By: #### L 7000.1800, M100.2200 ####[facility] [address] [place], [address] Urine Cultureon 10-29-2024 URC Urine Culture Mixed Gram Positive Organisms Hensel Count 50,000-80,000 MIXC Mixed contaminants. Submit a new specimen if indicated. Normal [facility] Comment on above: Performed By: #### L 7000.1800, M100.2200 ####[facility] [address] [place], [place], [id number] Chlamydia trachomatis rRNA d etection by probe and target amplification methodOrdered By: Bailee Perez on 10-27-2024 C. trachomatis rRNA HIRO+probe Ql (Unsp spec) Negative Negative [facility] Neisseria gonorrhoeae nuclei c acid detection by amplified probe techniqueOrdered By: Bailee Perez on 10-27-2024 N. gonorrhoeae DNA HIRO+probe Ql (Unsp spec) Negative Negative [facility] Comment on above: Performed at: =[address] [id number] Director: Chandni Barry MD, Phone: [phone] [facility] Office Visit Reporton 10-27-2024 Studio [facility] Office Visit Report [facility] [address], [address] [place] [address] OFFICE VISIT Date of Service: 10/27/24 MR#: [id number] Acct: [id number] Name: BRAVO SULLIVAN Rep #: [id number] : 1995 Provider: Dr. Bailee banuelos MD Age/Sex: 29/F Location[place] [facility] [place] Status: Signed Intake Vital Signs 04/02/24 08:58 10/12/24 12:00 10/23/24 09:02 10/27/24 11:49 Height 5 ft 5 in 5 ft 5 in 5 ft 5 in 5 ft 5 in Weight: 174 lb BMI 28.9 BP 115/75 Intake Visit Reasons: NOB LMP 4/7 per Switch Box Installer Required: No Is patient in pain?: No Allergies Penicillins Adverse Reaction (Verified 10/27/24 11:50) Vomiting Medications ???Medication ???Instructions ???Recorded ???Confirmed ???Type docosahexaenoic acid 200 mg mg PO 10/23/24 10/27/24 History capsule ( DHA) Last Menstrual Period: 09/07/24 Zika: Zika virus screening: Negative : No PFSH PFSH Surgical History Rover teeth removed Family History Mother Breast cancer Grandmother Multiple sclerosis Grandmother Ovarian cancer Social History adopted: No household members: spouse housing: house current occupational status: employed 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 current occupational exposures/hazards: No pets and animals: No history of recent travel: Yes ([place]) out of state: Yes out of country: No sexually active: Yes Smoking Status: Never smoker second hand exposure: No alcohol intake: current alcohol intake frequency: holidays/special occasions only details: Not while substance use type: does not use well-balanced diet: daily or most days caffeine: Yes Type: coffee eating out: 1-3 times/week during the past year weight has: remained stable what type of physical activity do you participate in: walking frequency: 5-6 times per week duration: 15-30 minutes/day sajan/restorationist: Caodaism seatbelt use: always do you feel safe at home: Yes additional social history: : [employer] History 1 Elective abortions Hx Para Spontaneous abortions 0 Hx # Term Pregnancies Ectopic pregnancies 0 Hx # Pregnancies Multiple births # of living children HPI NOB LMP 4/7 per SM Details: BRAVO SULLIVAN is a 29 year old who presents for New OB visit. OB Visit ANN Calculator Estimated Delivery Date Method Current WG Current Estimate 06/14/25 LMP (Certain) 7w 5d Other Estimates 06/15/25 Ultrasound #1 7w 4d Estimated Due Date: 06/14/25 Initial Weight: Not Recorded Date -???-???-???-???-?? ?-???-???-???-???-? ??-???-???- EGA Weight BP Urine Prot -???-???-???-???-?? ?-???-???-???-???-? ??-???-???- Glucose FHR FuHt Pres Dilation -???-???-???-???-?? ?-???-???-???-???-? ??-???-???- Effaced St Visit Note 10/27/24 -???-???-???-???-?? ?-???-???-???-???-? ??-???-???- 7w 1d 174 lb 115/75 -???-???-???-???-?? ?-???-???-???-???-? ??-???-???- 170 -???-???-???-???-?? ?-???-???-???-???-? ??-???-???- SM- CRL cons with LMP Menstrual History Last Menstrual Period: 09/07/24 Reported LMP: definite Normal amount/duration: Yes Frequency in days: 28 On hormonal BC at conception: No hCG+: 10/06/24 Antepartum Record Genetic Screening: Congenital Heart Defect: Other, Neural Tube Defect: Other, Hemoglobinopathy Or Carrier: Other, Cystic Fibrosis: Other, Chromosome Abnormality: Other, Jovon-Sachs: Other, Hemophilia: Other, Intellectual Disability/Autism: Other, Recurrent Loss/Stillbirth: Other, Other Structural Defect: Other, Other Genetic Disease: Other and Maternal Metabolic Disorder: Other Infection History: Live with someone with TB or Exposed to TB: No, Patient or Partner has history of Genital Herpes: No, Rash or Viral illness since last mentrual period: No, Prior GBS-Infected child: No, History of STD: No, HIV Infection: No, History of Hepatitis: No, Recent travel outside of [place]: No, Concern for hepatitis exposure: No, Varicella immune: Yes (Had vaccine) and Covid Vaccinated: Yes (Pfizer - boosters x1) Medical History Medical History: Positive: Seasonal allergies, Drug/latex allergies/reactions (PCN - as a child, did have sm dose in Apr 2024 with no reaction) and Operations/hospital izations (see surg hx) and N egative: Diabetes, Hypertension, Heart disease, Auto-immune disorder, Kidney disease/UTI, Neurologic/epilepsy , Psychiatric, Depression/postpart um depression, Hepatitis/liver disease, Varicosities/phlebi tis, Thyroid dysfunction, Trauma/domestic violence, History of blood transfusions, D (Rh) Sensitized, Pulmonary (e.g.,TB,Asthma), Breast, Supervisor Reclamation surgery, Anesthetic (more content not included)... Normal [facility] Urine cultureOrdered By: Kendrick Perez on 10-27-2024 Bacteria identified Cx Nom (U) Positive Abnormal [facility] Laboratory - Chemistry and C hemistry - challengeOrdered By: Bailee Perez on 10-23-2024 HCG ( test) Ql (U) Positive [facility] Office Visit Reporton 2024 Office Visit Report [facility] [address] [place] [address] OFFICE VISIT Date of Service: 10/23/24 MR#: [id number] Acct: [id number] Patient: BRAVO SULLIVAN Rep #: [id number] : 1995 Provider: Dr. Bailee banuelos MD Age/Sex: 29/F Location: [facility] [place] Status: Signed Intake Vital Signs 10/22/24 12:51 10/23/24 09:02 Height 5 ft 5 in 5 ft 5 in Weight: 173 lb 4 oz BMI 28.8 BP 118/68 Intake Visit Reasons: Pre new ob, confirmation, vitals Chief Complaint: Inperson PNOB, Est Care Allergies Penicillins Adverse Reaction (Verified 10/27/24 11:50) Vomiting Medications ???Medication ???Instructions ???Recorded ???Confirmed ???Type docosahexaenoic acid 200 mg mg PO 10/23/24 10/27/24 History capsule ( DHA) Is last menstrual period known: Yes Post menopausal: No Patient : Yes Have you fallen in the past year?: No Nurse's Note: Pt here for secondary amenorrhea. Office UPT: positive. Vitals WNL. PNOB questions completed. Problem list, allergies, and medications updated. First trimester ACOG education completed. Results POC Urine Office , Urine Positive Last Edit by Radha Castaneda RN on 10/23/24 09:04 Assessment and Plan Assessment and Plan (1) Supervision of normal : Status: Acute Comment: ANN 06/14/25, : Mickey (2) : Status: Acute Comment: Discussed genetic/carrier testing - undecided Orders: Orders POC Urine 10/23/24 N91.1 - Secondary amenorrhea CBC W/Diff, Automated 10/23/24 Z34.90 - Encounter for supervision of normal , unspecified, unspecified trimester Type Screen 10/23/24 Z34.90 - Encounter for supervision of normal , unspecified, unspecified trimester Rubella IgG 10/23/24 Z34.90 - Encounter for supervision of normal , unspecified, unspecified trimester Hepatitis C Antibody 10/23/24 Z34.90 - Encounter for supervision of normal , unspecified, unspecified trimester Hepatitis B Surface Antigen 10/23/24 Z34.90 - Encounter for supervision of normal , unspecified, unspecified trimester Culture, Urine 10/27/24 Z34.90 - Encounter for supervision of normal , unspecified, unspecified trimester Syphilis Antibodies 10/23/24 Z34.90 - Encounter for supervision of normal , unspecified, unspecified trimester Chlamydia/GC HIRO aptima 10/27/24 Z34.90 - Encounter for supervision of normal , unspecified, unspecified trimester HIV 10/23/24 Z34.90 - Encounter for supervision of normal , unspecified, unspecified trimester Clinical Quality Measures Falls Risk Screening/Assistive Devices Have you fallen in the past year?: No 10/29/24 2100 Date Bailee Perez MD [facility] Signature: Date (if applicable) CC: Normal [facility] Urgent Care Visit Reporton 1 Urgent Care Visit Report [facility] [address], [address] [place] [address] OFFICE VISIT Date of Service: 04/02/24 MR#: [id number] Acct: [id number] Name: BRAVO SULLIVAN Rep #: [id number] : 1995 Provider: MUKESH Barreto Age/Sex: 29/F Location: [facility] Status: Signed Intake Vital Signs 07/20/23 22:49 04/02/24 08:58 Height 5 ft 5 in 5 ft 5 in Weight: 174 lb BMI 28.9 BP 118/78 Blood Pressure Location Rt brachial Position Sitting Respiration 16 Pulse 145 H Pulse Source Monitor Temp 101.7 F H Temp Source Oral Pulse Oximetry (%) 98 Oxygen Delivery Method room air Intake Visit Reasons: FEVER, SORE THROAT Chief Complaint: FEVER SORE THROAT BODYACHES SWOLLEN TONSILS WHITE SPOTS HEADACHE Switch Box Installer Required: No Accompanied by: Is patient in pain?: Yes Allergies Penicillins Adverse Reaction (Verified 04/02/24 09:00) Vomiting Medications ???Medication ???Instructions ???Recorded ???Confirmed ???Type drospirenone 3 mg-ethinyl 1 tab PO DAILY 07/20/23 04/02/24 History estradiol 0.02 mg tablet (Lo-Zumandimine (28)) cefdinir 300 mg capsule 300 mg PO Q12H 10 days #20 caps 04/02/24 04/02/24 Rx PFSH Social History Smoking Status: Never smoker HPI HPI Chief Complaint: FEVER SORE THROAT BODYACHES SWOLLEN TONSILS WHITE SPOTS HEADACHE Details: BRAVO SULLIVAN, is a 29 F who presents to the office today for complaint of sore throat, body aches, fever and headache. Patient is unaware of fever Tmax. She denies nausea, vomiting or diarrhea. No hemoptysis, shortness of breath or difficulty breathing. No loss of taste or smell. No other associated symptoms or alleviating/aggrava ting factors. No other associated symptoms or alleviating/aggrava ting factors. ROS Const Constitutional: No other (6 system ROS completed with pertinent findings in the HPI otherwise normal.) Exam Const General: cooperative and well developed HENMT Head: normal to inspection and atraumatic Ears: hearing grossly normal bilaterally Nose: nasal discharge clear Face and sinus: normal facial exam Mouth: oral mucosae normal Throat: abnormal tonsil bilaterally hypertrophy 1+ Resp Effort Inspection: normal respiratory effort and no audible wheezes Auscultation: Bilateral: Clear to Auscultation Cardio Palpation: normal PMI Rate: regular rate Rhythm: regular rhythm Neuro General: patient alert and CN's II-XI intact bilaterally Psych Appearance: grossly normal Mental Status: mental status grossly normal Results POC Jolanta Rapid Strep POC Jolanta Rapid Strep Positive Last Edit by Cathryn Leslie MA on 04/02/24 09:08 Coding Level of Care Code Off vis,new,level 3 Diagnoses Acute pharyngitis J02.9 Assessment and Plan Assessment and Plan (1) Acute pharyngitis: Status: Acute Plan: Cefdinir as prescribed today. Encouraged to get plenty of rest, drink lots of clear liquids, and use Tylenol or Ibuprofen (unless contraindicated) for fever and comfort. Patient also educated on other symptomatic management techniques. To be seen in 7-10 days if no improvement; sooner if worsening of symptoms. Patient advised of potential red flags and when appropriate to report to the ED. Patient verbalized understanding and agreement with all the above. Orders: Orders POC Jolanta Rapid Strep A 04/02/24 Medications: New cefdinir 300 mg PO Q12H 20 caps 0RF 10 days 04/03/24 0609 Date Manfred Moore Signature: Date (if applicable) CC: Normal [facility] CBC W/Diff, Automatedon 02-01 Absolute Lymph 3.77 X10 3/uL Normal 0.83-4.51 [facility] Comment on above: Order Comment: Order Date: 02/20/24 Order Info: 0184-1 - CBCD Performed By: #### L 100.0100, L501.9520 #### [facility] [address] [place], [address] Absolute Neut 4.9 X10 3/uL Normal 2.0-7.7 [facility] Comment on above: Order Comment: Order Date: 02/20/24 Order Info: 018- - CBCD Performed By: #### L 100.0100, L501.9520 #### [facility] [address] [place], [address] Basophils/100 WBC (Bld) 0.4 % Normal 0-1 [facility] Comment on above: Order Comment: Order Date: 02/20/24 Order Info: 018-1 - CBCD Performed By: #### L 100.0100, L501.9520 #### [facility] [address] [place], [address] Eosinophils/100 WBC (Bld) 2.8 % Normal 0-5 [facility] Comment on above: Order Comment: Order Date: 02/20/24 Order Info: 018- - CBCD Performed By: #### L 100.0100, L501.9520 #### [facility] [address] [place], [address] Erythrocyte distribution width (RBC) [Ratio] 12.7 % Normal 11.6-14.6 [facility] Comment on above: Order Comment: Order Date: 02/20/24 Order Info: 0184-1 - CBCD Performed By: #### L 100.0100, L501.9520 #### [facility] [address] [place], [address] Hematocrit (Bld) [Volume fraction] 38.6 % Normal 37-47 [facility] Comment on above: Order Comment: Order Date: 02/20/24 Order Info: 01809-01 - CBCD Performed By: #### L 100.0100, L501.9520 #### [facility] [address] [place], [address] Hemoglobin (Bld) [Mass/Vol] 12.2 g/dL Normal 12.0-15.0 [facility] Comment on above: Order Comment: Order Date: 02/20/24 Order Info: 183-06 - CBCD Performed By: #### L 100.0100, L501.9520 #### [facility] [address] [place], [address] IG% 0.200 Normal 0.0-0.9 [facility] Comment on above: Order Comment: Order Date: 02/20/24 Order Info: 183-06 - CBCD Result Comment: IG% - Immature Granulocytes (promyelocytes, myelocytes and metamyelocytes) > 1% indicates that a LEFT SHIFT is Present. Performed By: #### L 100.0100, L501.9520 #### [facility] [address] [place], [address] Lymphocytes/100 WBC (Bld) 39.0 % Normal 19-41 [facility] Comment on above: Order Comment: Order Date: 02/20/24 Order Info: 01809-01 - CBCD Performed By: #### L 100.0100, L501.9520 #### [facility] [address] [place], [address] MCH (RBC) [Entitic mass] 29.1 pg Normal 27.0-32.0 [facility] Comment on above: Order Comment: Order Date: 02/20/24 Order Info: 01809-01 - CBCD Performed By: #### L 100.0100, L501.9520 #### [facility] [address] [place], [address] MCHC (RBC) [Mass/Vol] 31.6 g/dL Low 32-36 [facility] Comment on above: Order Comment: Order Date: 02/20/24 Order Info: 0184-1 - CBCD Performed By: #### L 100.0100, L501.9520 #### [facility] [address] [place], [address] MCV (RBC) [Entitic vol] 92.1 fL Normal 81-99 [facility] Comment on above: Order Comment: Order Date: 02/20/24 Order Info: 0184-1 - CBCD Performed By: #### L 100.0100, L501.9520 #### [facility] [address] [place], [address] Monocytes/100 WBC (Bld) 6.6 % Normal 0-10 [facility] Comment on above: Order Comment: Order Date: 02/20/24 Order Info: 0184-1 - CBCD Performed By: #### L 100.0100, L501.9520 #### [facility] [address] [place], [address] Neutrophils/100 WBC (Bld) 51.0 % Normal 47-70 [facility] Comment on above: Order Comment: Order Date: 02/20/24 Order Info: 0184-1 - CBCD Performed By: #### L 100.0100, L501.9520 #### [facility] [address] [place], [address] Nucleated RBC (Bld) [#/Vol] 0 10*3/uL Normal 0-5 [facility] Comment on above: Order Comment: Order Date: 02/20/24 Order Info: 0184-1 - CBCD Performed By: #### L 100.0100, L501.9520 #### [facility] [address] [place], [address] Platelet mean volume (Bld) [Entitic vol] 11.7 fL Normal 6.2-12.0 [facility] Comment on above: Order Comment: Order Date: 02/20/24 Order Info: 0184-1 - CBCD Performed By: #### L 100.0100, L501.9520 #### [facility] [address] [place], [address] Platelets (Bld) [#/Vol] 163 10*3/uL Normal 150-450 [facility] Comment on above: Order Comment: Order Date: 02/20/24 Order Info: 0184-1 - CBCD Performed By: #### L 100.0100, L501.9520 #### [facility] [address] [place], [address] RBC (Bld) [#/Vol] 4.19 10*6/uL Low 4.2-5.4 [facility] Comment on above: Order Comment: Order Date: 02/20/24 Order Info: 0184-1 - CBCD Performed By: #### L 100.0100, L501.9520 #### [facility] [address] [place], [address] RDW SD 42.7 fl Normal 35.1-43.9 [facility] Comment on above: Order Comment: Order Date: 02/20/24 Order Info: 0184-1 - CBCD Performed By: #### L 100.0100, L501.9520 #### [facility] [address] [place], [address] WBC (Bld) [#/Vol] 9.7 10*3/uL Normal 4.4-11.0 [facility] Comment on above: Order Comment: Order Date: 02/20/24 Order Info: 0184-1 - CBCD Performed By: #### L 100.0100, L501.9520 #### [facility] [address] [place], [address] Thyroid Stim Hormone (TSH)on 02-20-2024 TSH 1.450 uIU/mL Normal 0.358-3.740 [facility] Comment on above: Order Comment: Order Date: 02/20/24 Order Info: 3016-3 - TSH Performed By: #### L 100.0100, L501.9520 #### [facility] [address] [place], [address] Basophil percentageOrdered B y: Pola Martins on 07-21-2023 Basophil percentage 0 SEEN /hpf 0-5 [facility] Bilirubin Test strip Ql (U)O rdered By: Pola Martins on 07-21-2023 Bilirubin Ql (U) Negative Negative [facility] Ketones Test strip Ql (U)Ord ered By: Pola Martins on 07-21-2023 Ketones Ql (U) Negative Negative [facility] Mucus LM Ql (Urine sed)Order ed By: Pola Martins on 07-21-2023 Mucus Ql (Urine sed) 0 SEEN /hpf [facility] Nitrite Test strip Ql (U)Ord ered By: Pola Martins on 07-21-2023 Nitrite Ql (U) Negative Negative [facility] No Panel InformationOrdered By: Pola Martins on 07-21-2023 Troponin I High Sensitivity < 3 pg/mL 3.0-54.0 [facility] Comment on above: Please Note: New Chasidy t Units and Gender Specific Reference Ranges. For more information see Policy Stat Procedure [place] High Sensitivity Troponin (TNIH) and attachments. Urine RBC 0 SEEN /hpf 0-5 [facility] Protein Test strip Ql (U)Ord ered By: Pola Martins on 07-21-2023 Protein Ql (U) Negative Negative [facility] Squamous epithelial cells de tection in urine sediment by light microscopyOrdered By: Pola Martins on 07-21-2023 Epithelial cells.squamous LM Ql (Urine sed) 0-5 SEEN /hpf 5-10 [facility] Transitional cells detection in urine sediment by light microscopyOrdered By: Pola Martins on 07-21-2023 Transitional cells LM Ql (Urine sed) 0-5 SEEN /hpf 0-5 [facility] Urine blood detectionOrdered By: Pola Martins on 02-18-2024 RBC Ql (U) Negative Negative [facility] Urine clarityOrdered By: Debbie Martins on 07-21-2023 Clarity (U) Clear Clear [facility] Urine color determinationOrd ered By: Pola Martins on 07-21-2023 Color (U) Yellow Yellow [facility] Urine glucose detectionOrder ed By: Poal Martins on 07-21-2023 Glucose Ql (U) Negative Normal [facility] Urine leukocyte esterase det ection by dipstickOrdered By: Pola Martins on 07-21-2023 Leukocyte esterase Test strip Ql (U) 25 /ul Negative [facility] Urine pHOrdered By: Pola rivas on 07-21-2023 pH (U) 6.0 [pH] 5.0 - 8.0 [facility] Urine sediment bacteria coun t by microscopy (number/high power field)Ordered By: Pola Martins on 07-21-2023 Bacteria LM.HPF (Urine sed) [#/Area] 2 /[HPF] None Seen [facility] Urine specific gravity measu rementOrdered By: Pola Martins on 07-21-2023 Specific gravity (U) [Rel density] 1.025 1.002-1.030 [facility] Urine urobilinogen measureme ntOrdered By: Pola Martins on 07-21-2023 Urobilinogen Ql (U) Normal mg/dl Normal [facility] Absolute lymphocyte countOrd ered By: Pola Martins on 07-20-2023 Lymphocytes Auto (Unsp spec) [#/Vol] 4.16 10*3/uL 0.83-4.51 [facility] Automated lymphocyte count a s percentage of total leukocytesOrdered By: Pola Martins on 07-20-2023 Lymphocytes/100 WBC Auto (Unsp spec) 51.9 % 19-41 [facility] Basophil percentageOrdered B y: Pola Martins on 07-20-2023 Basophils/100 WBC (Bld) 0.5 % 0-1 [facility] Bilirubin [Mass/Vol] 0.20 mg/dL 0.20-1.00 [facility] Comment on above: For patients on eltr ombopag therapy, use of Dimension Edison TBIL is not recommended. Chloride [Moles/Vol] 113 mmol/L 98-107 [facility] Eosinophils/100 WBC (Bld) 4.2 % 0-5 [facility] Glucose [Mass/Vol] 96 mg/dL 74-106 [facility] Hemoglobin (Bld) [Mass/Vol] 12.0 g/dL 12.0-15.0 [facility] Monocytes/100 WBC (Bld) 7.4 % 0-10 [facility] Neutrophils (Bld) [#/Vol] 2.9 10*3/uL 2.0-7.7 [facility] Neutrophils/100 WBC (Bld) 35.9 % 47-70 [facility] Potassium [Moles/Vol] 3.9 mmol/L 3.5-5.1 [facility] Protein [Mass/Vol] 6.5 g/dL 6.4-8.2 [facility] Sodium [Moles/Vol] 141 mmol/L 136-145 [facility] WBC (Bld) [#/Vol] 8.0 10*3/uL 4.4-11.0 [facility] Determination of erythrocyte mean corpuscular volume (MCV)Ordered By: Pola Martins on 07-20-2023 MCV (RBC) [Entitic vol] 91.1 fL 81-99 [facility] Erythrocyte distribution wid th ratioOrdered By: Pola Martins on 07-20-2023 Erythrocyte distribution width (RBC) [Ratio] 13.4 % 11.6-14.6 [facility] Erythrocyte distribution wid th standard deviationOrdered By: Pola Martins on 07-20-2023 Erythrocyte distribution width (RBC) [Entitic vol] 45.1 fL 35.1-43.9 [facility] Hematocrit Auto (Bld) [Volum e fraction]Ordered By: Pola Martins on 07-20-2023 Hematocrit (Bld) [Volume fraction] 38.0 % 37-47 [facility] Immature granulocytes/100 WB C Auto (Bld)Ordered By: Pola Martins on 07-20-2023 Immature granulocytes/100 WBC (Bld) 0.100 % 0.0-0.9 [facility] Comment on above: IG% - Immature Granu locytes (promyelocytes, myelocytes and metamyelocytes) > 1% indicates that a LEFT SHIFT is Present. Laboratory - Chemistry and C hemistry - challengeOrdered By: Pola Martins on 07-20-2023 Albumin/Globulin [Mass ratio] 0.8 {ratio} 0.9-2.4 [facility] ALP [Catalytic activity/Vol] 45 U/L 45-117 [facility] ALT [Catalytic activity/Vol] 11 U/L 13-56 [facility] CO2 [Moles/Vol] 23.0 mmol/L 21.0-32.0 [facility] Globulin (S) [Mass/Vol] 3.7 g/dL 2.2-4.2 [facility] Lipase [Catalytic activity/Vol] 28 U/L 13-75 [facility] Comment on above: Please note:LIPASE r evised reference range effective 22. New Lipase methodology. Expected to produce lower values than the previous assay method. NEW Reference Range: 13 - 75 U/L Urea nitrogen/Creatinine [Mass ratio] 13.3 mg/mg 10-20 [facility] Laboratory - Hematology and Cell countsOrdered By: Pola Martins on 07-20-2023 MCH (RBC) [Entitic mass] 28.8 pg 27.0-32.0 [facility] MCHC (RBC) [Mass/Vol] 31.6 g/dL 32-36 [facility] Nucleated RBC/100 WBC (Bld) [Ratio] 0 % 0-5 [facility] Platelet mean volume (Bld) [Entitic vol] 10.5 fL 6.2-12.0 [facility] Platelets (Bld) [#/Vol] 241 10*3/uL 150-450 [facility] No Panel InformationOrdered By: Pola Martins on 07-20-2023 Estimated Creatinine Clearance Calc 97.27 ml/min [facility] Estimated GFR (MDRD) Amer 96 mL/min >60 [facility] Comment on above: GFR Calc Estimated GFR (MDRD) Non-Af Amer 80 mL/min >60 [facility] Comment on above: Non- GFR Calc RBC Auto (Bld) [#/Vol]Ordere d By: Pola Matrins on 07-20-2023 RBC (Bld) [#/Vol] 4.17 10*6/uL 4.2-5.4 [facility] Serum or plasma calcium angela urement (mass/volume)Ordered By: Pola Martins on 07-20-2023 Calcium [Mass/Vol] 8.9 mg/dL 8.5-10.1 [facility] Serum or plasma creatinine m easurement (mass/volume)Ordered By: Pola Martins on 07-20-2023 Creatinine [Mass/Vol] 0.90 mg/dL 0.55-1.02 [facility] Comment on above: The validity of the calculated GFR & GFRAA in patients over 70 years has not been determined. Clinical correlation is essential. Serum or plasma urea nitroge n measurement (mass/volume)Ordered By: Pola Martins on 07-20-2023 Urea nitrogen [Mass/Vol] 12 mg/dL 7-18 [facility] Thin prep Papanicolaou smear with manual screeningOrdered By: Pola Martins on 07-20-2023 Thin prep Papanicolaou smear with manual screening 2.8 g/dL 3.2-5.0 [facility] Thin prep Papanicolaou smear with manual screening 8 U/L 15-37 [facility] Thin prep Papanicolaou smear with manual screening 5 5-15 [facility] Vital Signs Date Time Vital Sign Value Performing Clinician Alemi kirstin 01-13-2025 13:25-0400 Body height 165.[address] Chad Bain MD Work Phone: [facility] 01-13-2025 13:24-0400 Body mass index (BMI) [Ratio] 27.8 kg/m2 Dr. Chda Bain MD Work Phone: [facility] 01-13-2025 13:24-0400 Body weight 75.[address] Chad Bain MD Work Phone: [facility] 01-13-2025 13:24-0400 Diastolic blood pressure 76 mm[Hg] Dr. Chad Bain MD Work Phone: [facility] 01-13-2025 13:24-0400 Systolic blood pressure 110 mm[Hg] Dr. Chad Bain MD Work Phone: 4(464)508-626023 [place] [address] 12-25-2024 15:28-0400 Body height 165.[address] Chad Bain MD Work Phone: 1(073)671-730662 [place] [address] 12-25-2024 15:28-0400 Body mass index (BMI) [Ratio] 28.1 kg/m2 Dr. Chad Bain MD Work Phone: 4(034)383-683162 [place] [address] 12-25-2024 15:28-0400 Body weight 76.[address] Chad Bain MD Work Phone: 9(631)133-374862 [place] [address] 12-25-2024 15:28-0400 Diastolic blood pressure 76 mm[Hg] Dr. Chad Bain MD Work Phone: 9(649)729-691662 [place] [address] 12-25-2024 15:28-0400 Systolic blood pressure 116 mm[Hg] Dr. Chad Bain MD Work Phone: 4(125)038-515862 [place] [address] 11-25-2024 10:48-0400 Body height 165.[address] Chad Bain MD Work Phone: 7(774)945-147262 [place] [address] 11-25-2024 10:48-0400 Body mass index (BMI) [Ratio] 28.3 kg/m2 Dr. Chad Bain MD Work Phone: 3(848)854-848762 [place] [address] 11-25-2024 10:48-0400 Body weight 77.[address] Chad Bain MD Work Phone: 6(544)120-452062 [place] [address] 11-25-2024 10:48-0400 Diastolic blood pressure 64 mm[Hg] Dr. Chad Bain MD Work Phone: 6(991)127-242562 [place] [address] 11-25-2024 10:48-0400 Systolic blood pressure 103 mm[Hg] Dr. Chad Bain MD Work Phone: 5([phone])389-046462 [place] [address] 10-27-2024 11:49-0400 Body height 165.[address] Chad Bain MD Work Phone: 6(503)572-301362 [place] [address] 10-27-2024 11:49-0400 Body mass index (BMI) [Ratio] 28.9 kg/m2 Dr. Chad Bain MD Work Phone: [facility] 10-27-2024 11:49-0400 Body weight 78.[address] Chad Bain MD Work Phone: [facility] 10-27-2024 11:49-0400 Diastolic blood pressure 75 mm[Hg] Dr. Chad Bain MD Work Phone: [facility] 10-27-2024 11:49-0400 Systolic blood pressure 115 mm[Hg] Dr. Chad Bain MD Work Phone: [facility] 10-23-2024 09:02-0400 Body mass index (BMI) [Ratio] 28.8 kg/m2 Dr. Chad Bain MD Work Phone: [facility] 10-23-2024 09:02-0400 Body weight 78.[address] Chad Bain MD Work Phone: [facility] 10-23-2024 09:02-0400 Diastolic blood pressure 68 mm[Hg] Dr. Chad Bain MD Work Phone: [facility] 10-23-2024 09:02-0400 Systolic blood pressure 118 mm[Hg] Dr. Chad Bain MD Work Phone: [facility] 07-21-2023 02:57-0500 Body temperature 97 [degF] [facility] 07-21-2023 02:57-0500 Diastolic blood pressure 63 mm[Hg] [facility] 07-21-2023 02:57-0500 Heart rate 68 /min [facility] 07-21-2023 02:57-0500 Respiratory rate 17 /min [facility] 07-21-2023 02:57-0500 SaO2% (BldA) [Mass fraction] 99 % [facility] 07-21-2023 02:57-0500 Systolic blood pressure 106 mm[Hg] [facility] 07-20-2023 22:49-0500 Body height 165.1 cm [facility] 07-20-2023 22:49-0500 Body mass index (BMI) [Ratio] 28.3 kg/m2 [facility] 07-20-2023 22:49-0500 Body weight 77.11 kg [facility] 01-26-2022 00:16-0400 Diastolic blood pressure 72 mm[Hg] [facility] Work Phone: 01-26-2022 00:16-0400 Heart rate 76 /min [facility] Work Phone: 01-26-2022 00:16-0400 Respiratory rate 16 /min [facility] Work Phone: 01-26-2022 00:16-0400 SaO2% (BldA) [Mass fraction] 98 % [facility] Work Phone: 01-26-2022 00:16-0400 Systolic blood pressure 92 mm[Hg] [facility] Work Phone: 01-25-2022 21:49-0400 Body height 165.1 cm [facility] Work Phone: 01-25-2022 21:49-0400 Body mass index (BMI) [Ratio] 25 kg/m2 [facility] Work Phone: 01-25-2022 21:49-0400 Body temperature 98.9 [degF] [facility] Work Phone: 01-25-2022 21:49-0400 Body weight 68.03 kg [facility] Work Phone: Encounters Encounter Date Encounter Type Care Provider Facility Start: 01-13-2025 End: 01-13-[address] Chad Bain MD Work Phone: -[facility] Start: 01-13-2025 End: 01-13-[address] Sabina Paredes DO -[facility] Work Phone: Start: 12-25-2024 End: 12-25-2024 Patient encounter procedure Kristen Rios CNM -[facility] Work Phone: Start: 12-25-2024 End: 12-25-[address] Chad Bain MD Work Phone: -[facility] Start: 11-25-2024 End: 11-25-[address] Sabina Paredes DO -[facility] Work Phone: Start: 11-25-2024 End: 11-25-[address] Chad Bain MD Work Phone: [facility] Work Phone: Start: 11-25-2024 End: 11-25-2024 ambulatory Sabina Paredes Facility:[facility] Start: 10-27-2024 End: 10-27-[address] Chad Bain MD Work Phone: [facility] Work Phone: Start: 10-27-2024 End: 10-27-[address] Bailee Perez MD -Laboratory Specimen Work Phone: Start: 10-27-2024 End: 10-27-[address] Bailee Perez MD -[facility] Work Phone: Start: 10-27-2024 End: 10-27-[address] Chad Bain MD Work Phone: [facility] Work Phone: Start: 10-27-2024 End: 10-27-2024 ambulatory Bailee Perez Facility:[facility] Start: 10-23-2024 End: 10-23-[address] Bailee Perez MD -[facility] Work Phone: Start: 10-23-2024 End: 10-23-2024 ambulatory Bailee Perez Facility:[facility] Start: 05-12-2024 ambulatory Chad Christian y:[facility] Start: 04-02-2024 End: 04-02-2024 ambulatory Chad Bain Facility:[facility] Start: 02-20-2024 End: 02-20-2024 ambulatory Chad Bain Facility:[facility] Start: 07-20-2023 End: 07-21-2023 Emergency department patient visit [facility] Work Phone: Start: 01-25-2022 End: 01-26-2022 Emergency department patient visit [facility] Procedures Date Procedure Procedure Detail Performing Clinician Start: 11-25-2024 Hepatitis C antibody measurement Dr. Chad Bain MD Work Phone: Comment on above: Reactive: Presumptiv e evidence of antibodies to HCV. Follow CDC recommendations for supplemental testing.Non-Reactive: Antibodies to HCV were not detected; does not exclude the possibility of exposure to HCVReactive Results are presumptive evidence of antibodies to HCV. Follow CDC recommendations for supplemental testing.Order confirmation testing: HCV Quant by PCR testing - HCVPCR #[id number] Non Reactive: < 0.8 Equivocal: >/= 0.8 to < 1.0 Reactive: >/= 1.0The CDC requires that a reactive/equivocal HCV antibody result be sent out for confirmation. HCV Quant by PCR testing. Start: 11-25-[address] Chad stone MD Work Phone: Start: 11-25-[address] Chad Bain MD Work Phone: Comment on above: Antibody Result: Int erpretationNon-Reactive: Non- ImmuneReactive: ImmuneThe following results were obtained with the [employer] Rubella IgG assay. Results from assays of other manufacturers cannot be used interchangeably. Start: 11-25-2024 Serologic test for syphilis Dr. Chad Bain MD Work Phone: Start: 10-27-[address] Chad Bain MD Work Phone: Start: 07-20-2023 Plain chest X-ray Plan of Treatment Date Care Activity Detail Author Start: 11-25-2024 CBC W Auto Different ial panel - Blood [facility] Start: 11-25-2024 Hepatitis C antibody measurement [facility] Start: 11-25-2024 Rubella IgG measurement [facility] Start: 11-25-2024 Serologic test for syphilis [facility] Start: 11-25-2024 [facility] Start: 11-25-2024 Procedure [facility] Start: 07-21-2023 [facility] CBC W Auto Different ial panel - Blood [facility] Chlamydia deoxyribon ucleic acid detection [facility] Erythrocyte mean cor puscular volume determination [facility] Hematocrit [Volume F raction] of Blood [facility] Hemoglobin [Mass/volume] in Blood [facility] Hepatitis B virus ernst rface Ag [Presence] in Serum [facility] Hepatitis C antibody measurement [facility] Leukocytes [#/volume] in Blood [facility] Mean corpuscular hem oglobin concentration determination [facility] Mean corpuscular hem oglobin determination [facility] Neutrophil count [facility] Neutrophil percent d ifferential count [facility] Patient Education [facility] Work Phone: Patient referral [facility] Work Phone: Platelets [#/volume] in Blood [facility] Red blood cell count [facility] Red cell distributio n width determination [facility] Rubella IgG measurement [facility] Serologic test for syphilis [facility] Payers Date Payer Category Payer Self-pay 2024 Unknown [id number] Unknown [facility] [id number] Unknown [id number] 2.16.8 [id number] Unknown [id number] 2.16.8 [id number] Unknown [id number] 2.16.8 [id number] Unknown [id number] 2.16.8 [id number] Unknown [id number] 2.16.8 [id number] Unknown [id number] 2.16.8 [id number] Unknown [id number] 2.16.8 [id number] Unknown [id number] 2.16.8 [id number] Unknown [id number] 2.16.8 [id number] Social History Date Type Detail Facility Start: 01-25-2022 End: 07-20-2023 Tobacco smoking status VAIS Unknown if ever smoked [facility] Start: 1995 Sex Assigned At Female [facility] Start: 10-23-2024 Tobacco smoking status NHIS Never smoked tobacco (finding) [facility] NEGATED: Highlighted row [facility] Work Phone: Mental Status Date Assessment Result Facility 07-20-2023 Cognitive function Voice/Name [facility] Work Phone: Clinical Notes 10-23-2024 to 01-13-2025 Note Date & Type Note Facility 01-13-2025 Progress note [facility] 12-25-2024 Progress note [facility] 12-25-2024 Progress note Note Date/Time December 25, 2024 3:53pm [facility] [address] [place] [address], [address] [place] [address] OFFICE VISIT Date of Service: 12/25/24 MR#: [id number] Acct: [id number] Name: BRAVO SULLIVAN Rep #: [id number] : 1995 Provider: DAMASO Rios Age/Sex: 29/F Location: [facility] Status: Signed Intake Vital Signs 10/27/24 11:49 11/25/24 10:48 12/25/24 15:28 Height 5 ft 5 in 5 ft 5 in 5 ft 5 in Weight: 169 lb BMI 28.1 BP 116/76 Intake Visit Reasons: 15wk ob Switch Box Installer Required: No Is patient in pain?: No Allergies Penicillins Adverse Reaction (Verified 12/25/24 15:29) Vomiting Medications ?Medication ?Instructions ?Recorded ?Confirmed ?Type docosahexaenoic acid 200 mg mg PO 10/23/24 12/25/24 Hi story capsule ( DHA) Last Menstrual Period: 09/07/24 Zika: Zika virus screening: Negative : No Have you fallen in the past year?: No PFSH PFSH Surgical History Rover teeth removed Family History Mother Breast cancer Grandmother Multiple sclerosis Grandmother Ovarian cancer Social History adopted: No household members: spouse housing: house current occupational status: employed 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 current occupational exposures/hazards: No pets and animals: No history of recent travel: Yes ([place]) out of state: Yes out of country: No sexually active: Yes Smoking Status: Never smoker second hand exposure: No alcohol intake: current alcohol intake frequency: holidays/special occasions only details: Not while substance use type: does not use well-balanced diet: daily or most days caffeine: Yes Type: coffee eating out: 1-3 times/week during the past year weight has: remained stable what type of physical activity do you participate in: walking frequency: 5-6 times per week duration: 15-30 minutes/day sajan/restorationist: Caodaism seatbelt use: always do you feel safe at home: Yes additional social history: : [employer] History 1 Elective abortions Hx Para Spontaneous abortions 0 Hx # Term Pregnancies Ectopic pregnancies 0 Hx # Pregnancies Multiple births # of living children HPI 15wk ob Details: BRAVO SULLIVAN is a 29 year old who presents for routine OB visit. OB Visit ANN Calculator Estimated Delivery Date Method Current WG Current Estimate 06/14/25 LMP (Certain) 15w 4d Other Estimates 06/15/25 Ultrasound #1 15w 3d Expected Delivery Route/Plan Labor Preferences- CB/BF classes: [] labor support person: [] labor intervention preferences: [] pain management options preferred: [] cut cord/dad catch: [] : [] PP control planned: [] discussed possible routes of delivery and associated risks: [] special requests: [] Specific Issue/Plans Covid status: [] Flu vaccine: [] Tdap vaccine: [] Rhogam: [] LARC form signed: [] Problem list reviewed and updated with the most current plan of care details and appropriate orders placed. Relevant counseling for the gestational age provided. Continue routine care and follow up unless otherwise noted in visit notes/problem list details Initial Weight: Not Recorded Date -?-?-?-?-?-?-?-?-?-?-?-?- EGA Weight BP Urine Prot -?-?-?-?-?-?-?-?-?-?-?-?- Glucose FHR FuHt Pres Dilation -?-?-?-?-?-?-?-?-?-?-?-?- Effaced St Visit Note 10/27/24 -?-?-?-?-?-?-?-?-?-?-?-?- 7w 1d 174 lb 115/75 -?-?-?-?-?-?-?-?-?-?-?-?- 170 -?-?-?-?-?-?-?-?-?-?-?-?- SM- CRL cons wit h LMP 11/25/24 -?-?-?-?-?-?-?-?-?-?-?-?- 11w 2d 170 lb 8 oz 103/64 Nega tive -?-?-?-?-?-?-?-?-?-?-?-?- Negative 165 -?-?-?-?-?-?-?-?-?-?-?-?- JV- CRL measurin g 11 weeks 5 days. nipt today. 12/25/24 -?-?-?-?-?-?-?-?-?-?-?-?- 15w 4d 169 lb 116/76 Negative -?-?-?-?-?-?-?-?-?-?-?-?- Negative 155 -?-?-?-?-?-?-?-?-?-?-?-?- LC- no vb/crampi ng. declines afp ACOG First Trimester First Trimester: Desire for , Alcohol, Tobacco Cessation, Illicit/Recreational Drug/Substance Use, Intimate Partner Violence, Barriers to care, Unstable Housing, Communication Barriers, Environmental/Work Hazards, Anticipated Course of Care, Toxoplasmosis Precations, Use of Any medications, Sexual activity, Exercise, Dental Care, Sauna/Hot tub use, Seat Belt use, Childbirth classes/Hospital facilities, Travel, Indications for Ultrasound and Screening for Aneuploidy; Discussed ROS Const Reports system reviewed and no additional complaints, except as documented GI Denies nausea and Denies vomiting Denies urinary hesitancy and Denies urinary urgency Exam Const Orientation: alert, awake and oriented x3 Resp Effort & Inspection: normal respiratory effort, able to speak in complete sentences and symmetric chest movement GI Palpation: soft (gravid) OB/External & Speculum: other (fundus appriopriate for GA) Results POC Urinalysis 2 Dip (Clinic) Office Urine Glucose Negative Last Edit by Mirta Valencia on 12/25/24 15:33 Office Urine Protein Negative Last Edit by Mirta Valencia on 12/25/24 15:33 Coding Level of Care Code OB Routine Diagnoses Supervision of normal Z34.90 15 weeks gestation of Z3A.15 Weeks of gestation: 15 weeks Assessment and Plan Assessment and Plan (1) Supervision of normal : Status: Acute Comment: ANN 06/14/25, : Mickey (2) : Status: Acute Qualifiers: Weeks of gestation: 15 weeks Qualified Code(s): Z3A.15 - 15 weeks gestation of Comment: Discussed genetic/carrier testing, NIPT low risk, male Orders: Orders POC Urinalysis 2 Dip (Clinic) Today Plan Details Additional Comments: ACOG trimester education reviewed and updated. see problem list details for updated plan management information and see below for orders placed at this visit. GA appropriate handout given. Clinical Quality Measures Falls Risk Screening/Assistive Devices Have you fallen in the past year?: No 12/25/24 1553 <Electronically signed by Kristen mendez CNM> Date _ Kristen Moore Signature: Date (if applicable) CC: ~ [facility] Work Phone: 1(816) 745-350006-25-2025 [facility] [place] [facility] [address] [place] [address], [address] [place] [address] OFFICE VISIT Date of Service: 11/25/24 MR#: [id number] Acct: [id number] Name: BRAVO SULLIVAN Rep #: [id number] : 1995 Provider: Dr. Shari Paredes DO Age/Sex: 29/F Location[place] [facility] [place]: Signed Intake Vital Signs 10/22/24 12:51 10/27/24 11:49 11/25/24 10:48 11/25/24 10:48 Height 5 ft 5 in 5 ft 5 in 5 ft 5 in 5 ft 5 in Weight: 170 lb 8 oz BMI 28.3 BP 103/64 Intake Visit Reasons: 11wk OB Switch Box Installer Required: No Is patient in pain?: No Allergies Penicillins Adverse Reaction (Verified 11/25/24 10:47) Vomiting Medications ?Medication ?Instructions ?Recorded ?Confirmed ?Type docosahexaenoic acid 200 mg mg PO 10/23/24 11/25/24 Hi story capsule ( DHA) Last Menstrual Period: 09/07/24 Zika: Zika virus screening: Negative : No PFSH PFSH Surgical History Rover teeth removed Family History Mother Breast cancer Grandmother Multiple sclerosis Grandmother Ovarian cancer Social History adopted: No household members: spouse housing: house current occupational status: employed 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: No pets and animals: No history of recent travel: Yes ([place]) out of state: Yes out of country: No sexually active: Yes Smoking Status: Never smoker second hand exposure: No alcohol intake: current alcohol intake frequency: holidays/special occasions only details: Not while substance use type: does not use well-balanced diet: daily or most days caffeine: Yes Type: coffee eating out: 1-3 times/week during the past year weight has: remained stable what type of physical activity do you participate in: walking frequency: 5-6 times per week duration: 15-30 minutes/day sajan/restorationist: Caodaism seatbelt use: always do you feel safe at home: Yes additional social history: : [employer] History 1 Elective abortions Hx Para Spontaneous abortions 0 Hx # Term Pregnancies Ectopic pregnancies 0 Hx # Pregnancies Multiple births # of living children HPI 11wk OB Details: BRAVO SULLIVAN is a 29 year old who presents for routine OB visit. OB Visit ANN Calculator Estimated Delivery Date Method Current WG Current Estimate 06/14/25 LMP (Certain) 11w 2d Other Estimates 06/15/25 Ultrasound #1 11w 1d Initial Weight: Not Recorded Date -?-?-?-?-?-?-?-?-?-?-?-?- EGA Weight BP Urine Prot -?-?-?-?-?-?-?-?-?-?-?-?- Glucose FHR FuHt Pres Dilation -?-?-?-?-?-?-?-?-?-?-?-?- Effaced St Visit Note 10/27/24 -?-?-?-?-?-?-?-?-?-?-?-?- 7w 1d 174 lb 115/75 -?-?-?-?-?-?-?-?-?-?-?-?- 170 -?-?-?-?-?-?-?-?-?-?-?-?- SM- CRL cons wit h LMP 11/25/24 -?-?-?-?-?-?-?-?-?-?-?-?- 11w 2d 170 lb 8 oz 103/64 Nega tive -?-?-?-?-?-?-?-?-?-?-?-?- Negative 165 -?-?-?-?-?-?-?-?-?-?-?-?- JV- CRL measurin g 11 weeks 5 days. nipt today. ACOG First Trimester First Trimester: Desire for , Alcohol, Tobacco Cessation, Illicit/Recreational Drug/Substance Use, Intimate Partner Violence, Barriers to care, Unstable Housing, Communication Barriers, Environmental/Work Hazards, Anticipated Course of Care, Toxoplasmosis Precations, Use of Any med ications, Sexual activity, Exercise, Dental Care, Sauna/Hot tub use, Seat Belt use, Childbirth classes/Hospital facilities, Travel, Indications for Ultrasound and Screening for Aneuploidy; Discussed Results POC Urinalysis 2 Dip (Clinic) Office Urine Glucose Negative Last Edit by Arabella Cardenas on 11/25/24 10: 53 Office Urine Protein Negative Last Edit by Arabella Cardenas on 11/25/24 10: 53 Coding Level of Care Code OB Routine Diagnoses Supervision of normal Z34.90 11 weeks gestation of Z3A.11 Weeks of gestation: 11 weeks Assessment and Plan Assessment and Plan (1) Supervision of normal : Status: Acute Comment: ANN 06/14/25, : Mickey (2) : Status: Acute Qualifiers: Weeks of gestation: 11 weeks Qualified Code(s): Z3A.11 - 11 weeks gestation of Comment: Discussed genetic/carrier testing - undecided Orders: Orders POC Urinalysis 2 Dip (Clinic) Today 11/25/24 1114 e Preston DO> Date _ Sabina Paredes DO Cosignlawrence Signature: Date (if applicable) CC: ~ [facility]05-23-2025 Evaluation note* Diagnosis Onset Date Resolution Status Admit Date acute October 23, 2024 8:07am Supervision of normal acut e October 23, 2024 8:07am acute October 27, 2024 11:46am Supervision of normal acut e October 27, 2024 11:46am [employer] Work Phone: 1(360) 943-577305-23-2025 Evaluation note* Diagnosis Onset Date Resolution Status Admit Date acute October 23, 2024 8:07am Supervision of normal acut e October 23, 2024 8:07am acute October 27, 2024 11:46am Supervision of normal acut e October 27, 2024 11:46am acute November 25 10:45am Supervision of normal acut e November 25, 2024 10:45am [employer] Work Phone: 1(657) 740-811205-23-2025 Evaluation note* Diagnosis Onset Date Resolution Status Admit Date acute October 23, 2024 8:07am Supervision of normal acut e October 23, 2024 8:07am acute October 27, 2024 11:46am Supervision of normal acut e October 27, 2024 11:46am acute November 25 10:45am Supervision of normal acut e November 25, 2024 10:45am acute December 25 3:26pm Supervision of normal acut e December 25, 2024 3:26pm [employer] Work Phone: 1(920) 696-758605-23-2025 Evaluation note* Diagnosis Onset Date Resolution Status Admit Date acute October 23, 2024 8:07am Supervision of normal acut e October 23, 2024 8:07am acute October 27, 2024 11:46am Supervision of normal acut e October 27, 2024 11:46am acute November 25 10:45am Supervision of normal acut e November 25, 2024 10:45am acute December 25 3:26pm Supervision of normal acut e December 25, 2024 3:26pm acute January 13, 2 025 1:16pm Supervision of normal acut e January 13, 2025 1:16pm Pool [employer] [facility] Work Phone: Evaluation noteNo assessment information available [facility] Work Phone: Hospital Discharge instructions Additional Instructions Please take the prednisone as directed to control any further allergic reaction/inflammation. You may also take 1 Benadryl up to 3 times a day and also use 1 20mg Pepcid twice a day if you need further allergic reaction controlWMercy [facility] Work Phone: Progress note Author Sabina Johnston [facility] Note Date/Time November 25, 2024 11:1 4am [facility] [address] [place] [address], [address] [place] [address] OFFICE VISIT Date of Service: 11/25/24 MR#: [id number] Acct: [id number] Name: BRAVO SULLIVAN Rep #: [id number] : 1995 Provider: Dr. Shari Paredes, Age/Sex: 29/F Location: [facility] [place] Status: Signed Intake Vital Signs 10/22/24 12:51 10/27/24 11:49 11/25/24 10:48 11/25/24 10:48 Height 5 ft 5 in 5 ft 5 in 5 ft 5 in 5 ft 5 in Weight: 170 lb 8 oz BMI 28.3 BP 103/64 Intake Visit Reasons: 11wk OB Switch Box Installer Required: No Is patient in pain?: No Allergies Penicillins Adverse Reaction (Verified 11/25/24 10:47) Vomiting Medications ?Medication ?Instructions ?Recorded ?Confirmed ?Type docosahexaenoic acid 200 mg mg PO 10/23/24 11/25/24 Hi story capsule ( DHA) Last Menstrual Period: 09/07/24 Zika: Zika virus screening: Negative : No PFSH PFSH Surgical History Rover teeth removed Family History Mother Breast cancer Grandmother Multiple sclerosis Grandmother Ovarian cancer Social History adopted: No household members: spouse housing: house current occupational status: employed 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: No pets and animals: No history of recent travel: Yes ([place]) out of state: Yes out of country: No sexually active: Yes Smoking Status: Never smoker second hand exposure: No alcohol intake: current alcohol intake frequency: holidays/special occasions only details: Not while substance use type: does not use well-balanced diet: daily or most days caffeine: Yes Type: coffee eating out: 1-3 times/week during the past year weight has: remained stable what type of physical activity do you participate in: walking frequency: 5-6 times per week duration: 15-30 minutes/day sajan/restorationist: Caodaism seatbelt use: always do you feel safe at home: Yes additional social history: : [employer] History 1 Elective abortions Hx Para Spontaneous abortions 0 Hx # Term Pregnancies Ectopic pregnancies 0 Hx # Pregnancies Multiple births # of living children HPI 11wk OB Details: BRAVO SULLIVAN is a 29 year old who presents for routine OB visit. OB Visit ANN Calculator Estimated Delivery Date Method Current WG Current Estimate 06/14/25 LMP (Certain) 11w 2d Other Estimates 06/15/25 Ultrasound #1 11w 1d Initial Weight: Not Recorded Date -?-?-?-?-?-?-?-?-?-?-?-?- EGA Weight BP Urine Prot -?-?-?-?-?-?-?-?-?-?-?-?- Glucose FHR FuHt Pres Dilation -?-?-?-?-?-?-?-?-?-?-?-?- Effaced St Visit Note 10/27/24 -?-?-?-?-?-?-?-?-?-?-?-?- 7w 1d 174 lb 115/75 -?-?-?-?-?-?-?-?-?-?-?-?- 170 -?-?-?-?-?-?-?-?-?-?-?-?- SM- CRL cons wit h LMP 11/25/24 -?-?-?-?-?-?-?-?-?-?-?-?- 11w 2d 170 lb 8 oz 103/64 Nega tive -?-?-?-?-?-?-?-?-?-?-?-?- Negative 165 -?-?-?-?-?-?-?-?-?-?-?-?- JV- CRL measurin g 11 weeks 5 days. nipt today. ACOG First Trimester First Trimester: Desire for , Alcohol, Tobacco Cessation, Illicit/Recreational Drug/Substance Use, Intimate Partner Violence, Barriers to care, Unstable Housing, Communication Barriers, Environmental/Work Hazards, Anticipated Course of Care, Toxoplasmosis Precations, Use of Any medications, Sexual activity, Exercise, Dental Care, Sauna/Hot tub use, Seat Belt use, Childbirth classes/Hospital facilities, Travel, Indications for Ultrasound and Screening for Aneuploidy; Discussed Results POC Urinalysis 2 Dip (Clinic) Office Urine Glucose Negative Last Edit by Arabella Cardenas on 11/25/24 10: 53 Office Urine Protein Negative Last Edit by Arabella Cardenas on 11/25/24 10: 53 Coding Level of Care Code OB Routine Diagnoses Supervision of normal Z34.90 11 weeks gestation of Z3A.11 Weeks of gestation: 11 weeks Assessment and Plan Assessment and Plan (1) Supervision of normal : Status: Acute Comment: ANN 06/14/25, : Mickey (2) : Status: Acute Qualifiers: Weeks of gestation: 11 weeks Qualified Code(s): Z3A.11 - 11 weeks gestation of Comment: Discussed genetic/carrier testing - undecided Orders: Orders POC Urinalysis 2 Dip (Clinic) Today 11/25/24 1114 <Electronically signed by Sabina James DO> Date _ Sabina Paredes DO Cosigner Signature: Date (if applicable) CC: ~ [facility] Work Phone: Progress note Author Sabina Johnston [facility] Note Date/Time January 13, 2025 1: 47pm [facility] [address], [address] [place] [address] OFFICE VISIT Date of Service: 01/13/25 MR#: [id number] Acct: [id number] Name: BRAVO SULLIVAN Rep #: [id number] : 1995 Provider: Dr. Shari Paredes, Age/Sex: 29/F Location: [facility] [place] Status: Signed Intake Vital Signs 12/25/24 15:28 01/13/25 13:24 01/13/25 13:25 Height 5 ft 5 in 5 ft 5 in 5 ft 5 in Weight: 167 lb 7 oz BMI 27.8 BP 110/76 Intake Visit Reasons: OB, watery discharge, cramping Switch Box Installer Required: No Is patient in pain?: No Allergies Penicillins Adverse Reaction (Verified 01/13/25 13:23) Vomiting Medications ?Medication ?Instructions ?Recorded ?Confirmed ?Type docosahexaenoic acid 200 mg mg PO 10/23/24 01/13/25 Hi story capsule ( DHA) Last Menstrual Period: 09/07/24 Zika: Zika virus screening: Negative : No PFSH PFSH Surgical History Rover teeth removed Family History Mother Breast cancer Grandmother Multiple sclerosis Grandmother Ovarian cancer Social History adopted: No household members: spouse housing: house current occupational status: employed 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 current occupational exposures/hazards: No pets and animals: No history of recent travel: Yes ([place]) out of state: Yes out of country: No sexually active: Yes Smoking Status: Never smoker second hand exposure: No alcohol intake: current alcohol intake frequency: holidays/special occasions only details: Not while substance use type: does not use well-balanced diet: daily or most days caffeine: Yes Type: coffee eating out: 1-3 times/week during the past year weight has: remained stable what type of physical activity do you participate in: walking frequency: 5-6 times per week duration: 15-30 minutes/day sajan/restorationist: Caodaism seatbelt use: always do you feel safe at home: Yes additional social history: : [employer] History 1 Elective abortions Hx Para Spontaneous abortions 0 Hx # Term Pregnancies Ectopic pregnancies 0 Hx # Pregnancies Multiple births # of living children HPI OB, watery discharge, cramping Details: BRAVO SULLIVAN is a 29 year old who presents for routine OB visit. OB Visit ANN Calculator Estimated Delivery Date Method Current WG Current Estimate 06/14/25 LMP (Certain) 18w 2d Other Estimates 06/15/25 Ultrasound #1 18w 1d Expected Delivery Route/Plan Labor Preferences- CB/BF classes: [] labor support person: [] labor intervention preferences: [] pain management options preferred: [] cut cord/dad catch: [] : [] PP control planned: [] discussed possible routes of delivery and associated risks: [] special requests: [] Specific Issue/Plans Covid status: [] Flu vaccine: [] Tdap vaccine: [] Rhogam: [] LARC form signed: [] Problem list reviewed and updated with the most current plan of care details and appropriate orders placed. Relevant counseling for the gestational age provided. Continue routine care and follow up unless otherwise noted in visit notes/problem list details Initial Weight: Not Recorded Date -?-?-?-?-?-?-?-?-?--?-?-?- EGA Weight BP Urine Prot -?-?-?-?-?-?-?-?-?-?-?-?- Glucose FHR FuHt Pres Dilation -?-?-?-?-?-?-?-?-?-?-?-?- Effaced St Visit Note 10/27/24 -?-?-?-?-?-?-?-?-?-?-?-?- 7w 1d 174 lb 115/75 -?-?-?-?-?-?-?-?-?-?-?-?- 170 -?-?-?-?-?-?-?-?-?-?-?-?- SM- CRL cons wit h LMP 11/25/24 -?-?-?-?-?-?-?-?-?-?-?-?- 11w 2d 170 lb 8 oz 103/64 Nega tive -?-?-?-?-?-?-?--?-?-?-?-?- Negative 165 -?-?-?-?-?-?-?-?-?-?-?-?- JV- CRL measurin g 11 weeks 5 days. nipt today. 12/25/24 -?-?-?-?-?-?-?-?-?-?-?-?- 15w 4d 169 lb 116/76 Negative -?-?-?-?-?-?-?-?-?-?-?-?- Negative 155 -?-?-?-?-?-?-?-?-?-?-?-?- LC- no vb/crampi ng. declines afp 01/13/25 -?-?-?-?-?-?-?-?-?-?-?-?- 18w 2d 167 lb 7 oz 110/76 Nega tive -?-?-?-?-?-?-?-?-?-?-?-?- Negative 146 -?-?-?-?-?-?-?-?-?-?-?-?- JV-patient is be ing seen urgently for leaking fluid and cramping. On exam there is no pooling. Ultrasound shows a MVP of 4.66 cm and lots of fluid around the baby. rom plus collected and sent stat. ACOG First Trimester First Trimester: Desire for , Alcohol, Tobacco Cessation, Illicit/Recreational Drug/Substance Use, Intimate Partner Violence, Barriers to care, Unstable Housing, Communication Barriers, Environmental/Work Hazards, Anticipated Course of Care, Toxoplasmosis Precations, Use of Any medications, Sexual activity, Exercise, Dental Care, Sauna/Hot tub use, Seat Belt use, Childbirth classes/Hospital facilities, Travel, Indications for Ultrasound and Screening for Aneuploidy; Discussed Results POC Urinalysis 2 Dip (Clinic) Office Urine Glucose Negative Last Edit by Arabella Cardenas on 01/13/25 13: 38 Office Urine Protein Negative Last Edit by Arabella Cardenas on 01/13/25 13: 38 Coding Level of Care Code OB Routine Diagnoses Supervision of normal Z34.90 18 weeks gestation of Z3A.18 Weeks of gestation: 18 weeks Assessment and Plan Assessment and Plan (1) Supervision of normal : Status: Acute Comment: ANN 06/14/25, : Mickey (2) : Status: Acute Qualifiers: Weeks of gestation: 18 weeks Qualified Code(s): Z3A.18 - 18 weeks gestation of Comment: Discussed genetic/carrier testing, NIPT low risk, male Orders: Orders POC Urinalysis 2 Dip (Clinic) Today (ROM) Rupture Of Membranes Today N89.8 - Other specified noninflammatory disorders of vagina, O26.899 - Other specified related conditions, unspecified trimester 01/13/25 1347 <Electronically signed by Sabina James DO> Date _ Sabina Paredes DO Cosigner Signature: Date (if applicable) CC: ~ [facility] Work Phone: Reason for referral (narrative)No reason for referral information availableAd[facility] Work Phone: Chief Complaint and Reason for Visit Chief Complaint ALLERGIC REACTION Chief Complaint CP Chief Complaint Admit Date Pre new ob, confirmation, vitals October 8:07am NOB LMP 4/7 per SM October 27, 2024 11:46 am Reason for Visit Admit Date October 23, 2024 8:07a m Supervision of normal October 8:07am October 27, 2024 11:46 am Supervision of normal October 11:46am Chief Complaint Admit Date Pre new ob, confirmation, vitals October 8:07am NOB LMP 4/7 per SM October 27, 2024 11:46 am 11wk OB November 25, 2024 10:4 5am Reason for Visit Admit Date October 23, 2024 8:07a m Supervision of normal October 8:07am October 27, 2024 11:46 am Supervision of normal October 11:46am November 25, 2024 10:4 5am Supervision of normal November 10:45am Chief Complaint Admit Date Pre new ob, confirmation, vitals October 8:07am NOB LMP 4/7 per October 27, 2024 11:46 am 11wk OB November 25, 2024 10:4 5am 15wk ob December 25, 2024 3:26 pm Reason for Visit Admit Date October 23, 2024 8:07a m Supervision of normal October 8:07am October 27, 2024 11:46 am Supervision of normal October 11:46am November 25, 2024 10:4 5am Supervision of normal November 10:45am December 25, 2024 3:26 pm Supervision of normal December 3:26pm Chief Complaint Admit Date Pre new ob, confirmation, vitals October 8:07am NOB LMP 4/7 per October 27, 2024 11:46 am 11wk OB November 25, 2024 10:4 5am 15wk ob December 25, 2024 3:26 pm OB, watery discharge, cramping January 132024 1:16pm Reason for Visit Admit Date October 23, 2024 8:07a m Supervision of normal October 8:07am October 27, 2024 11:46 am Supervision of normal October 11:46am November 25, 2024 10:4 5am Supervision of normal November 10:45am December 25, 2024 3:26 pm Supervision of normal December 3:26pm January 13, 2025 1: 16pm Supervision of normal January 012024 1:16pm Advance Directives Advance Directive Response Recorded Date/ Time Living Will No January 25 9:55pm Power of Sealant Mixer No January 25 022 9:55pm Advance Directive Response Recorded Date/ Time Living Will No July 20 024 10:57pm Power of Sealant Mixer No July 20, 2023 10:57pm Family History Relationship Condition Age at Onset Recorded Date/T cel[place] mother Malignant neoplasm of breast Unknown grandmother Multiple sclerosis Unknown grandmother Malignant neoplasm of ovary Unknown Summary Purpose Additional Source Comments Goals (unrecognized section and content) Goals may be documented in a n alternate sectionGoals may be documented in an alternate sectionGoals may be documented in an alternate sectionGoals may be documented in an alternate sectionGoals may be documented in an alternate sectionGoals may be documented in an alternate sectionGoals may be documented in an alternate sectionGoals may be documented in an alternate section Care Teams (unrecognized sec tion and content) Team Status: Active Member Role Status Dates No Primary Care Physician Primary Care Provider Active Team Status: Inactive Member Role Status Dates No Primary Care Physician Primary Care Provider Active Dr. Pola Martins DO Emergency Provider Active Team Status: Active Member Role Status Dates Dr. Chad Bain MD Primary Care Provider Active Team Status: Inactive Member Role Status Dates Dr. Chad Bain MD Primary Care Provider Active Start: October 23, 2024 End: October 23, 2024 Dr. Chad Bain MD Referring Provider Active Start: October 23, 2024 End: October 23, 2024 Dr. Bailee Perez MD Attending Provider Active Start: October 23, 2024 End: October 23, 2024 Team Status: Inactive Member Role Status Dates Dr. Chad Bain MD Primary Care Provider Active Start: October 27, 2024 End: October 27, 2024 Dr. Chad Bain MD Referring Provider Active Start: October 27, 2024 End: October 27, 2024 Dr. Bailee Perez MD Attending Provider Active Start: October 27, 2024 End: October 27, 2024 Team Status: Inactive Member Role Status Dates Dr. Chad Bain MD Primary Care Provider Active Start: October 27, 2024 End: October 27, 2024 Dr. Bailee Perez MD Attending Provider Active Start: October 27, 2024 End: October 27, 2024 Dr. Bailee Perez MD Referring Provider Active Start: October 27, 2024 End: October 27, 2024 Team Status: Inactive Member Role Status Dates Dr. Chad Bain MD Primary Care Provider Active Start: November 25, 2024 End: November 25, 2024 Dr. Chad Bain MD Referring Provider Active Start: November 25, 2024 End: November 25, 2024 Dr. Sabina Paredes DO Attending Provider Activ e Start: November 25, 2024 End: November 25, 2024 Team Status: Active Member Role Status Dates Dr. Chad Bain MD Primary Care Provider Active Start: November 25, 2024 Dr. Sabina Paredes DO Attending Provider Activ e Start: November 25, 2024 Dr. Sabina Paredes DO Referring Provider Activ e Start: November 25, 2024 Team Status: Active Member Role/Relationship Status Dates Dr. Chad Bain MD Primary Care Provider Active Team Status: Inactive Member Role/Relationship Status Dates Dr. Chad Bain MD Primary Care Provider Active Start: October 23, 2024 End: October 23, 2024 Dr. Chad Bain MD Referring Provider Active Start: October 23, 2024 End: October 23, 2024 Dr. Bailee Perez MD Attending Provider Active Start: October 23, 2024 End: October 23, 2024 Team Status: Inactive Member Role/Relationship Status Dates Dr. Chad Bain MD Primary Care Provider Active Start: October 27, 2024 End: October 27, 2024 Dr. Chad Bain MD Referring Provider Active Start: October 27, 2024 End: October 27, 2024 Dr. Bailee Perez MD Attending Provider Active Start: October 27, 2024 End: October 27, 2024 Team Status: Inactive Member Role/Relationship Status Dates Dr. Chad Bain MD Primary Care Provider Active Start: October 27, 2024 End: October 27, 2024 Dr. Bailee Perez MD Attending Provider Active Start: October 27, 2024 End: October 27, 2024 Dr. Bailee Perez MD Referring Provider Active Start: October 27, 2024 End: October 27, 2024 Team Status: Inactive Member Role/Relationship Status Dates Dr. Chad Bain MD Primary Care Provider Active Start: November 25, 2024 End: November 25, 2024 Dr. Chad Bain MD Referring Provider Active Start: November 25, 2024 End: November 25, 2024 Dr. Sabina Paredes DO Attending Provider Activ e Start: November 25, 2024 End: November 25, 2024 Team Status: Inactive Member Role/Relationship Status Dates Dr. Chad Bain MD Primary Care Provider Active Start: November 25, 2024 End: November 25, 2024 Dr. Sabina Paredes DO Attending Provider Activ e Start: November 25, 2024 End: November 25, 2024 Dr. Sabina Paredes DO Referring Provider Activ e Start: November 25, 2024 End: November 25, 2024 Team Status: Inactive Member Role/Relationship Status Dates Dr. Chad Bain MD Primary Care Provider Active Start: December 25, 2024 End: December 25, 2024 Dr. Chad Bain MD Referring Provider Active Start: December 25, 2024 End: December 25, 2024 Kristen Rios CNM Attending Provider Active Start: December 25, 2024 End: December 25, 2024 Team Status: Inactive Member Role/Relationship Status Dates Dr. Chad Bain MD Primary Care Provider Active Start: January 13, 2025 End: January 13, 2025 Dr. Chad Bain MD Referring Provider Active Start: January 13, 2025 End: January 13, 2025 Dr. Sabina Paredes DO Attending Provider Activ e Start: January 13, 2025 End: January 13, 2025 INFORMATION SOURCE (unrecogn ized section and content) DATE CREATED AUTHOR 12/26/2024 [facility] FOR RECORDS PERTAINING TO PATIENTS WHO ARE OR HAVE BEEN ENROLLED IN A CHEMICAL DEPENDENCY/SUBSTANCEABUSE PROGRAM, SOME INFORMATION MAY BE OMITTED. This clinical summary was aggregated from multiple sources. Caution should be exercised in using it in the provision of clinical care. This summary normalizes information from multiple sources, and as a consequence, information in this document may materially change the coding, format and clinical context of patient data. In addition, data may be omitted in some cases. CLINICAL DECISIONS SHOULD BE BASED ON THE PRIMARY CLINICAL RECORDS. [facility]. provides no warranty or guarantee of the accuracy or completeness of information in this document.
== END | disposition home or self-care (01) ==
LOC: LABSPEC 13:52
PROVIDERS: PCP Family Medicine; Visit Provider Obstetrics & Gynecology
DX: O26.899 Other specified pregnancy related conditions, unspecified trimester (principal); N89.8 Other specified noninflammatory disorders of vagina; O99.891 Other specified diseases and conditions complicating pregnancy; Z3A.00 Weeks of gestation of pregnancy not specified
CPT/HCPCS: 84112

== ENCOUNTER → 2025-02-03 | Outpatient (CLI) | payer OTHER, SELFPAY ==
--- NOTE | 2025-02-03 15:17 | US_ITS ---
PROCEDURE: OB ANATOMY W/ TRANSVAGINAL 02/03/2025 REASON FOR EXAM: ANATOMY TECHNIQUE: Procedure Code: [id number] Modality: US Procedure: OB ANATOMY W/ TRANSVAGINAL COMPARISON: None FINDINGS Number: 1 Position: Breech Placental Position: Anterior and not low-lying Placental Abnormalities: No evidence of previa. DIMENSIONS: Biparietal Diameter: 5.03 cm: 21 weeks and 2 days: 47 percentile/ Head Circumference: 20.15 cm: 22 weeks and 2 days: 81 percentile/ Abdominal Circumference: 17.27 cm: 22 weeks and 2 days: 73rd percentile/ Femur Length: 3.47 cm: 21 weeks and 0 days: 29 percentile/ ESTIMATED WEIGHT: 440 g plus/-66 g ESTIMATED WEIGHT PERCENTILE (24+ weeks): 63 ESTIMATED GESTATIONAL AGE: Baseline: 21 weeks and 2 days By Ultrasound: 21 weeks and 6 days ESTIMATED DATE OF DELIVERY: Baseline: June 14, 2025 By Ultrasound: June 10, 2025 BIOPHYSICAL ASSESSMENT: Amniotic Fluid Volume: 5.7 cm Amniotic Fluid Index: Within normal limits. (8-24 cm normal range) Cardiac Motion: 160 beats per minute (average) Trunk and Limb Motion: Present. MATERNAL ANATOMY: Adnexa: Neither maternal ovary is successfully identified. Cervical Length (if measured): 4.9 cm ANATOMY: Spine: Unremarkable Cranium: Unremarkable Cerebellum: Unremarkable Cisterna Magna: Unremarkable Cavum Septum Pellucidi: Unremarkable Lateral Ventricles: Unremarkable Choroid Plexus: Unremarkable Midline Falx: Unremarkable Nuchal Fold: Unremarkable Upper Lip: Unremarkable Heart: Unremarkable Ventricular Outflow Tracts: Unremarkable Stomach: Unremarkable Kidneys: Unremarkable Bladder: Unremarkable Umbilical Cord: Unremarkable Extremities: Unremarkable US/OB Anatomy w/ Transvaginal IMPRESSION: Single live intrauterine gestation with a mean gestational age of 21 weeks and 6 days. Reading Location: [place] [id number]
== END | disposition home or self-care (01) ==
PROVIDERS: PCP Family Medicine; Referring Provider Nurse Practitioner Women's Health; Visit Provider Nurse Practitioner Women's Health
DX: Z34.90 Encounter for supervision of normal pregnancy, unspecified, unspecified trimester (principal)
CPT/HCPCS: 76805; 76817

== ENCOUNTER → 2025-03-16 | Outpatient (CLI) | payer OTHER, SELFPAY ==
[2025-03-16 16:34] LABS: Hematocrit 33.0 % (37-47); Hemoglobin 10.9 g/dL (12.0-15.0); Immature Granulocytes Count 0.040 X10^3/uL (0.0-0.0); Mean Corp Hgb Conc 33.0 g/dL (32-36); Mean Corpuscular Volume 92.2 fL (81-99); Mean Platelet Vol. 9.8 fl (6.2-12.0); NRBC Flagged by Analyzer 0 % (0-5); Platelet Count 282 K/mm3 (150-450); RBC Distribution Width CV 13.3 % (11.6-14.6); RBC Distribution Width SD 45.1 fl (35.1-43.9); Red Blood Count 3.58 M/mm3 (4.2-5.4); White Blood Count 12.0 K/mm3 (4.4-11.0)
[2025-03-16 17:22] LABS: Glucose Challenge Gest 1H 50g 95 mg/dL (70-140); HIV Nonreactive (Nonreactive); Syphilis Antibodies Nonreactive (Nonreactive)
== END | disposition home or self-care (01) ==
PROVIDERS: Advanced Practice Midwife; PCP Family Medicine; Referring Provider Obstetrics & Gynecology; Visit Provider Obstetrics & Gynecology
DX: Z34.02 Encounter for supervision of normal first pregnancy, second trimester (principal)
CPT/HCPCS: 36415; 82950; 85025; 86703; 86780

== ENCOUNTER → 2025-04-15 | Outpatient (CLI) | payer OTHER, SELFPAY ==
--- NOTE | 2025-04-15 16:27 | US_ITS ---
PROCEDURE: OB LIMITED WITH BIOMETRICS 04/15/2025 REASON FOR EXAM: POOR WEIGHT GAIN IN TECHNIQUE: Procedure Code: [id number] Modality: US Procedure: OB LIMITED WITH BIOMETRICS COMPARISON: February 03, 2025. FINDINGS LMP: September 07, 2024. Number: 1 Position: Vertex Placental Position: Anterior and not low-lying Placental Abnormalities: No evidence of previa. DIMENSIONS: Biparietal Diameter: 8.1 cm: 32 weeks and 3 days: 70 percentile/ Head Circumference: 30.7 cm 34 weeks and 1 day: 85th percentile/ Abdominal Circumference: 26.7 cm: 30 weeks and 5 days: 28 percentile/ Femur Length: 5.9 cm: 30 weeks and 6 days: 22nd percentile/ ESTIMATED WEIGHT: 1707 g plus/-256 g ESTIMATED WEIGHT PERCENTILE (24+ weeks): 30 ESTIMATED GESTATIONAL AGE: Baseline: 31 weeks and 3 days By Ultrasound: 32 weeks and 4 days ESTIMATED DATE OF DELIVERY: Baseline: June 14, 2025 By Ultrasound: June 06, 2025 BIOPHYSICAL ASSESSMENT: Amniotic Fluid Volume: 6.6 cm Amniotic Fluid Index: 14.8 (8-24 cm normal range) Cardiac Motion: 153 beats per minute (average) Trunk and Limb Motion: Present. MATERNAL ANATOMY: Adnexa: Neither maternal ovary is successfully identified. US/OB Limited With Biometrics IMPRESSION: Single live intrauterine gestation with a mean gestational age of 32 weeks and 4 days. Reading Location: [id number]
== END | disposition home or self-care (01) ==
LOC: US 16:25
PROVIDERS: PCP Family Medicine; Referring Provider Obstetrics & Gynecology; Visit Provider Obstetrics & Gynecology
DX: O26.10 Low weight gain in pregnancy, unspecified trimester (principal); Z3A.00 Weeks of gestation of pregnancy not specified
CPT/HCPCS: 76816

== ENCOUNTER 2025-04-21 18:01 | Observation (INO) | payer OTHER, SELFPAY ==
[2025-04-21] VITALS (9 sets, daily range): BP systolic 107–119; BP diastolic 62–69; PULSE 72–116; RESP 12; TEMP 36.4; O2SAT 96–99; BMI 28.9
[2025-04-21 16:57] LABS: ROM Internal Control Test YES-OK TO RESULT pt. (Internal QC); ROM Patient Test Negative (Negative); Record Kit Lot#, ROM+ K3607
[2025-04-21] MEDS: Lactated Ringers 1,000 ML 50 ML IV (17:00)
[2025-04-21 17:33] LABS: Hematocrit 33.4 % (37-47); Hemoglobin 10.8 g/dL (12.0-15.0); Immature Granulocytes Count 0.040 X10^3/uL (0.0-0.0); Mean Corp Hgb Conc 32.3 g/dL (32-36); Mean Corpuscular Volume 91.5 fL (81-99); Mean Platelet Vol. 9.6 fl (6.2-12.0); NRBC Flagged by Analyzer 0 % (0-5); Platelet Count 245 K/mm3 (150-450); RBC Distribution Width CV 14.5 % (11.6-14.6); RBC Distribution Width SD 48.8 fl (35.1-43.9); Red Blood Count 3.65 M/mm3 (4.2-5.4); White Blood Count 10.5 K/mm3 (4.4-11.0)
--- NOTE | 2025-04-21 17:54 | OB.TRI.HP_ITS ---
HPI - General General Date of Admission: 04/21/25 HPI Narrative BRAVO SULLIVAN, is a 30 F who presents @ 32w2d presents with possible ROM, contractons. she initially wasnt feeling any contractions but on the monitor she was having irritability, was checked and found to be 1/-3. ROM plus is negative. she deneis any vaginal bleeding, had a normal CL on anatomy scan. she has had poor maternal weight gain in and her mom had a history of a 28 week delivery with twins. UA may be suggestive of dehydration and possible UTI. Maternal Data Information ANN Calculator Estimated Delivery Date Method Current WG Current Estimate 06/14/25 LMP (Certain) 32w 3d Other Estimates 06/15/25 Ultrasound #1 32w 2d PFSH PFSH Home Medications Medication Instructions Recorded Last Taken Type docosahexaenoic acid 200 mg mg PO 10/23/24 Unknown His tory capsule ( DHA) Allergy/AdvReac Type Severity Reaction Status Date / Time Penicillins AdvReac Vomiting Verified 04/08/25 15:51 Family History Mother Breast cancer Grandmother Multiple sclerosis Grandmother Ovarian cancer Surgical History [place] teeth removed Social History adopted: No household members: spouse housing: house current occupational status: employed 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 current occupational exposures/hazards: No pets and animals: No history of recent travel: Yes ([place]) out of state: Yes out of country: No sexually active: Yes Smoking Status: Never smoker second hand exposure: No alcohol intake: current alcohol intake frequency: holidays/special occasions only details: Not while substance use type: does not use well-balanced diet: daily or most days caffeine: Yes Type: coffee eating out: 1-3 times/week during the past year weight has: remained stable what type of physical activity do you participate in: walking frequency: 5-6 times per week duration: 15-30 minutes/day sajan/jain: Anabaptism seatbelt use: always do you feel safe at home: Yes additional social history: : Mickey - [employer]. History 1 Elective abortions Hx Para Spontaneous abortions 0 Hx # Term Pregnancies Ectopic pregnancies 0 Hx # Pregnancies Multiple births # of living children Visit Details Expected Delivery Route/Plan Labor Preferences- CB/BF classes: encouraged labor support person: Mickey labor intervention preferences: [] pain management options preferred: epidural cut cord/dad catch: cord : yes PP control planned: discussed discussed possible routes of delivery and associated risks: [] special requests: [] Plans Covid status: [] Flu vaccine: given Tdap vaccine: given Rhogam: NA LARC form signed: yes movement and labor precautions reviewed. Problem list reviewed and updated with the most current plan of care details and appropriate orders placed. Relevant counseling for the gestational age provided. Continue routine care and follow up unless otherwise noted in visit notes/problem list details OB Flowsheet Initial Weight: 170 lb Date - - - - - - - - - - - - - EGA Weight BP Urine Prot - - - - - - - - - - - - - Glucose FHR FuHt Pres Dilation - - - - - - - - - - - - - Effaced St Visit Note 10/27/24 - - - - - - - - - - - - - 7w 1d 174 lb (+4 lb) 115/75 - - - - - - - - - - - - - 170 - - - - - - - - - - - - - SM- CRL cons wit h LMP 11/25/24 - - - - - - - - - - - - - 11w 2d 170 lb 8 oz (+8 oz) 103/64 Negative - - - - - - - - - - - - - Negative 165 - - - -- - - - - - - - - - JV- CRL measurin g 11 weeks 5 days. nipt today. 12/25/24 - - - - - - - - - - - - - 15w 4d 169 lb (-16 oz) 116/76 Negative - - - - - - - - - - - - - Negative 155 - - - - - - - - - - - - - LC- no vb/crampi ng. declines afp 01/13/25 - - - - - - - - - - - - - 18w 2d 167 lb 7 oz (-2 lb 9 oz) 110/76 Negative - - - - - - - - - - - - - Negative 146 - - - - - - - - - - - - - JV-patient is be ing seen urgently for leaking fluid and cramping. On exam there is no pooling. Ultrasound shows a MVP of 4.66 cm and lots of fluid around the baby. rom plus collected and sent stat. 01/20/25 - - - - - - - - - - - - - 19w 2d 172 lb 1 oz (+2 lb 1 oz) 108/69 Negative - - - - - - - - - - - - - Negative 152 - - - - - - - - - - - - - MH-No VB, LOF. G ood FM. Resent order for anatomy [facility]. 02/16/25 - - - - - - - - - - - - - 23w 1d 172 lb 7 oz (+2 lb 7 oz) 107/72 Negative - - - - - - - - - - - - - Negative 150 24 - - - - - - - - - - - - - KW- no vb/lof/ct x. selena fm. reviewed US. glucose next visit. CBE classes discussed. 03/16/25 - - - - - - - - - - - - - 27w 1d 173 lb 5 oz (+3 lb 5 oz) 111/75 Negative - - - - - - - - - - - - - Negative 140 27 - - - - - - - - - - - - - SM- no vb lof go od fm no regular ctx 04/08/25 - - - - - - - - - - - - - 30w 3d 174 lb 3 oz (+4 lb 3 oz) 102/68 Negative - - - - - - - - - - - - - Negative 135 30 - - - - - - - - - - - - - JV- no lof, vagi nal bleeding, or dec fm. has only gained 4 pounds this . growth scan ordered. 04/19/25 - - - - - - - - - - - - - 32w 0d 175 lb 3 oz (+5 lb 3 oz) 109/74 Negative - - - - - - - - - - - - - Negative 140 32 - - - - - - - - - - - - - MH-No VB, LOF. G ood FM. Recent nl growth US ROS Constitutional Constitutional: Reports systems reviewed and no addt'l complaints, except as documented and as per HPI ENT HEENT: Reports systems reviewed and no addt'l complaints, except as documented Cardiovascular Cardiovascular: Reports systems reviewed and no addt'l complaints, except as documented Respiratory/Chest Respiratory/Chest: Reports systems reviewed and no addt'l complaints, except as documented Gastrointestinal Gastrointestinal: Reports as per HPI Genitourinary Genitourinary: Reports as per HPI Musculoskeletal Musculoskeletal: Reports systems reviewed and no addt'l complaints, except as documented Integumentary Integumentary: Reports systems reviewed and no addt'l complaints, except as documented Neurologic Neurologic: Reports systems reviewed and no addt'l complaints, except as documented Physical Exam Const alert, oriented x3 and no apparent distress HEENT Head and Scalp: normocephalic and atraumatic Neck full ROM and no lymphadenopathy Chest inspection of chest normal Resp normal respiratory effort GI GI Narrative: gravid, abdomen nontender, AGA Manual OB Exam: dilated 1, effaced 10 and station -3 NST FHR Rate Baby A Baseline: 140 Variability:: Moderate Accelerations:: 15 x 15 Decelerations:: None NST Reactive:: Yes FHR Category:: Category I Uterine Activity:: regular q 2-4 Assessment & Plan (1) contractions: COMMENT: 1 cm dilated 04/21. monitored, BMZ given s/p terb x 1. fosfomycin given. no cervical change. (2) Poor weight gain of : QUALIFIERS: Trimester: third trimester Qualified Code(s): O26.13 - Low weight gain in , third trimester COMMENT: Nl growth US (3) Anemia affecting : QUALIFIERS: Trimester: third trimester Qualified Code(s): O99.013 - Anemia complicating , third trimester COMMENT: OTC iron (4) Supervision of normal : QUALIFIERS: Normal : normal first Trimester: third trimester Qualified Code(s): Z34.03 - Encounter for supervision of normal first , third trimester COMMENT: [id number] ANN 06/14/25, boy Minh : Mickey (5) : QUALIFIERS: Weeks of gestation: 32 weeks Qualified Code(s): Z3A.32 - 32 weeks gestation of COMMENT: Discussed genetic/carrier testing, NIPT low risk, male, normal anatomy PLAN: Plan patient will be monitored overnight in triage, terb given x 1 and IVFs. gbs sent. celestone course given. no cervical change noted. possible uti treated, urine culture sent. Charges/Coding Multi Select Codes Visit Charges Office Visit/Consults: 46770 OV L3 Est 20min Urinary/Genital Urinary/Genital CPT Codes: 00717-33 non-stress test Interp
[2025-04-21 17:55] LABS: Color, Urine Yellow (Yellow); Glucose, Dipstick Normal (Normal); Ketone-Dipstick 50 mg/dl (Negative); Leukocyte Esterase-Dipstick 25 /ul (Negative); Nitrite-Dipstick Negative (Negative); Occult Blood-Urine Negative /ul (Negative); Protein-Dipstick 30 mg/dl (Negative); Specific Gravity, Urine 1.020 (1.002-1.030); Urine Bilirubin Dipstick Negative (Negative)
[2025-04-21] MEDS: Betamethasone/Betamethasone 30 MG/5 ML Vial 12 MG IM (18:35)
[2025-04-21] MEDS: Lactated Ringers 1,000 ML 125 ML IV (18:36)
[2025-04-21] MEDS: FOSFOMYCIN TROMETHAMINE 3 GM PACKET PO (20:22)
[2025-04-22 00:42] VITALS: PULSE 96; RESP 16; TEMP 37.1; O2SAT 96
[2025-04-22 00:44] VITALS: BP 106/56; PULSE 90
[2025-04-22 01:53] VITALS: BP 111/59; PULSE 90
[2025-04-22 02:00] VITALS: RESP 16; TEMP 36.7
[2025-04-22 06:06] VITALS: BP 101/55; PULSE 81
--- NOTE | 2025-04-22 07:19 | OB.TRI.HP_ITS ---
HPI - General General Date of Admission: 04/21/25 HPI Narrative no significant contractions overnight, no vb lof admits good fm feeling much better, more stable. Maternal Data Information ANN Calculator Estimated Delivery Date Method Current WG Current Estimate 06/14/25 LMP (Certain) 32w 6d Other Estimates 06/15/25 Ultrasound #1 32w 5d PFSH PFSH Home Medications Medication Instructions Recorded Last Taken Type docosahexaenoic acid 200 mg mg PO 10/23/24 Unknown His tory capsule ( DHA) Allergy/AdvReac Type Severity Reaction Status Date / Time Penicillins AdvReac Vomiting Verified 04/08/25 15:51 Family History Mother Breast cancer Grandmother Multiple sclerosis Grandmother Ovarian cancer Surgical History [place] teeth removed Social History adopted: No household members: spouse housing: house current occupational status: employed 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 current occupational exposures/hazards: No pets and animals: No history of recent travel: Yes ([place]) out of state: Yes out of country: No sexually active: Yes Smoking Status: Never smoker second hand exposure: No alcohol intake: current alcohol intake frequency: holidays/special occasions only details: Not while substance use type: does not use well-balanced diet: daily or most days caffeine: Yes Type: coffee eating out: 1-3 times/week during the past year weight has: remained stable what type of physical activity do you participate in: walking frequency: 5-6 times per week duration: 15-30 minutes/day sajan/shinto: Restorationist seatbelt use: always do you feel safe at home: Yes additional social history: : Mickey - [employer] History 1 Elective abortions Hx Para Spontaneous abortions 0 Hx # Term Pregnancies Ectopic pregnancies 0 Hx # Pregnancies Multiple births # of living children Visit Details Expected Delivery Route/Plan Labor Preferences- CB/BF classes: encouraged labor support person: Mickey labor intervention preferences: [] pain management options preferred: epidural cut cord/dad catch: cord : yes PP control planned: discussed discussed possible routes of delivery and associated risks: [] special requests: [] Plans Covid status: [] Flu vaccine: given Tdap vaccine: given Rhogam: NA LARC form signed: yes movement and labor precautions reviewed. Problem list reviewed and updated with the most current plan of care details and appropriate orders placed. Relevant counseling for the gestational age provided. Continue routine care and follow up unless otherwise noted in visit notes/problem list details OB Flowsheet Initial Weight: 170 lb Date - - - - - - - - - - - - - EGA Weight BP Urine Prot - - - - - - - - - - - - - Glucose FHR FuHt Pres Dilation - - - - - - - - - - - - - Effaced St Visit Note 10/27/24 - - - - - -- - - - - - - - 7w 1d 174 lb (+4 lb) 115/75 - - - - - - - - - - - - - 170 - - - - - - - - - - - - - SM- CRL cons wit h LMP 11/25/24 - - - - - - - - - - - - - 11w 2d 170 lb 8 oz (+8 oz) 103/64 Negative - - - - - - - - - - - - - Negative 165 - - - - - - - - - - - - - JV- CRL measurin g 11 weeks 5 days. nipt today. 12/25/24 - - - - - - - - - - - - - 15w 4d 169 lb (-16 oz) 116/76 Negative - - - - - - - - - - - - - Negative 155 - - - - - - - - - - - - - LC- no vb/crampi ng. declines afp 01/13/25 - -- - - - - - - - - - - - 18w 2d 167 lb 7 oz (-2 lb 9 oz) 110/76 Negative - - - - - - - - - - - - - Negative 146 - - - - - - - - - - - - - JV-patient is be ing seen urgently for leaking fluid and cramping. On exam there is no pooling. Ultrasound shows a MVP of 4.66 cm and lots of fluid around the baby. rom plus collected and sent stat. 01/20/25 - - - - - - - - - - - - - 19w 2d 172 lb 1 oz (+2 lb 1 oz) 108/69 Negative - - - - - - - - - - - - - Negative 152 - - - - - - - - - - - - - MH-No VB, LOF. G ood FM. Resent order for anatomy [facility]. 02/16/25 - - - - - - - - - - - - - 23w 1d 172 lb 7 oz (+2 lb 7 oz) 107/72 Negative - - - - - - - - - - - - - Negative 150 24 - - - - - - - - - - - - - KW- no vb/lof/ct x. good fm. reviewed US. glucose next visit. CBE classes discussed. 03/16/25 - - - - - - - - - - - - - 27w 1d 173 lb 5 oz (+3 lb 5 oz) 111/75 Negative - - - - - - - - - - - - - Negative 140 27 - - - - - - - - - - - - - SM- no vb lof go od fm no regular ctx 04/08/25 - - - - - - - - - - - - - 30w 3d 174 lb 3 oz (+4 lb 3 oz) 102/68 Negative - - - - - - - - - - - - - Negative 135 30 - - - - - - - - - - - - - JV- no lof, vagi nal bleeding, or dec fm. has only gained 4 pounds this . growth scan ordered. 04/19/25 - - - - - - - - - - - - - 32w 0d 175 lb 3 oz (+5 lb 3 oz) 109/74 Negative - - - - - - - - - - - - - Negative 140 32 - - - - - - - - - - - - - MH-No VB, LOF. G ood FM. Recent nl growth US ROS Constitutional Constitutional: Reports systems reviewed and no addt'l complaints, except as documented and as per HPI ENT HEENT: Reports systems reviewed and no addt'l complaints, except as documented Cardiovascular Cardiovascular: Reports systems reviewed and no addt'l complaints, except as documented Respiratory/Chest Respiratory/Chest: Reports systems reviewed and no addt'l complaints, except as documented Gastrointestinal Gastrointestinal: Reports as per HPI Genitourinary Genitourinary: Reports as per HPI Musculoskeletal Musculoskeletal: Reports systems reviewed and no addt'l complaints, except as documented Integumentary Integumentary: Reports systems reviewed and no addt'l complaints, except as documented Neurologic Neurologic: Reports systems reviewed and no addt'l complaints, except as documented Physical Exam Const alert, oriented x3 and no apparent distress HEENT Head and Scalp: normocephalic and atraumatic Neck full ROM and no lymphadenopathy Chest inspection of chest normal Resp normal respiratory effort GI GI Narrative: gravid, abdomen nontender, AGA Manual OB Exam: dilated 1, effaced 10 and station -3 NST FHR Rate Baby A Baseline: 140 Variability:: Moderate Accelerations:: 15 x 15 Decelerations:: None NST Reactive:: Yes FHR Category:: Category I Uterine Activity:: none Assessment & Plan (1) contractions: COMMENT: 1 cm dilated 04/21. monitored, BMZ given s/p terb x 1. fosfomycin given. no cervical change. (2) Poor weight gain of : QUALIFIERS: Trimester: third trimester Qualified Code(s): O26.13 - Low weight gain in , third trimester COMMENT: Nl growth US (3) Anemia affecting : QUALIFIERS: Trimester: third trimester Qualified Code(s): O99.013 - Anemia complicating , third trimester COMMENT: OTC iron (4) Supervision of normal : QUALIFIERS: Normal : normal first Trimester: third trimester Qualified Code(s): Z34.03 - Encounter for supervision of normal first , third trimester COMMENT: [id number] ANN 06/14/25, boy Minh : Mickey (5) : QUALIFIERS: Weeks of gestation: 32 weeks Qualified Code(s): Z3A.32 - 32 weeks gestation of COMMENT: Discussed genetic/carrier testing, NIPT low risk, male, normal anatomy PLAN: Plan stable no cervical change, dc home fu for celestone tonight Charges/Coding Multi Select Codes Visit Charges Observation E&M Codin Observation care discharge (please see other initial note to change code possibly for this visit) Urinary/Genital Urinary/Genital CPT Codes: 56618-74 non-stress test Interp
--- NOTE | 2025-04-22 07:19 | OB.TRI.NOTE ---
HPI - General General Date of Admission: 04/21/25 HPI Narrative no significant contractions overnight, no vb lof admits good fm feeling much better, more stable. Maternal Data Information ANN Calculator Estimated Delivery Date Method Current WG Current Estimate 06/14/25 LMP (Certain) 32w 6d Other Estimates 06/15/25 Ultrasound #1 32w 5d PFSH PFSH Home Medications Medication Instructions Recorded Last Taken Type docosahexaenoic acid 200 mg mg PO 10/23/24 Unknown History capsule ( DHA) Allergy/AdvReac Type Severity Reaction Status Date / Time Penicillins AdvReac Vomiting Verified 04/08/25 15:51 Family History Mother Breast cancer Grandmother Multiple sclerosis Grandmother Ovarian cancer Surgical History [place] teeth removed Social History adopted: No household members: spouse housing: house current occupational status: employed 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 current occupational exposures/hazards: No pets and animals: No history of recent travel: Yes ([place]) out of state: Yes out of country: No sexually active: Yes Smoking Status: Never smoker second hand exposure: No alcohol intake: current alcohol intake frequency: holidays/special occasions only details: Not while substance use type: does not use well-balanced diet: daily or most days caffeine: Yes Type: coffee eating out: 1-3 times/week during the past year weight has: remained stable what type of physical activity do you participate in: walking frequency: 5-6 times per week duration: 15-30 minutes/day sajan/denominational: Muslim seatbelt use: always do you feel safe at home: Yes additional social history: : Mickey - [employer] History 1 Elective abortions Hx Para Spontaneous abortions 0 Hx # Term Pregnancies Ectopic pregnancies 0 Hx # Pregnancies Multiple births # of living children Visit Details Expected Delivery Route/Plan Labor Preferences- CB/BF classes: encouraged labor support person: Mickey labor intervention preferences: [] pain management options preferred: epidural cut cord/dad catch: cord : yes PP control planned: discussed discussed possible routes of delivery and associated risks: [] special requests: [] Plans Covid status: [] Flu vaccine: given Tdap vaccine: given Rhogam: NA LARC form signed: yes movement and labor precautions reviewed. Problem list reviewed and updated with the most current plan of care details and appropriate orders placed. Relevant counseling for the gestational age provided. Continue routine care and follow up unless otherwise noted in visit notes/problem list details OB Flowsheet Initial Weight: 170 lb Date <del> </del> EGA Weight BP Urine Prot <del> </del> Glucose FHR FuHt Pres Dilation <del> </del> Effaced St Visit Note 10/27/24 <del> </del> 7w 1d 174 lb (+4 lb) 115/75 <del> </del> 170 <del> </del> SM- CRL cons with LMP 11/25/24 <del> </del> 11w 2d 170 lb 8 oz (+8 oz) 103/64 Negative <del> </del> Negative 165 <del> </del> JV- CRL measuring 11 weeks 5 days. nipt today. 12/25/24 <del> </del> 15w 4d 169 lb (-16 oz) 116/76 Negative <del> </del> Negative 155 <del> </del> LC- no vb/cramping. declines afp 01/13/25 <del> </del> 18w 2d 167 lb 7 oz (-2 lb 9 oz) 110/76 Negative <del> </del> Negative 146 <del> </del> JV-patient is being seen urgently for leaking fluid and cramping. On exam there is no pooling. Ultrasound shows a MVP of 4.66 cm and lots of fluid around the baby. rom plus collected and sent stat. 01/20/25 <del> </del> 19w 2d 172 lb 1 oz (+2 lb 1 oz) 108/69 Negative <del> </del> Negative 152 <del> </del> MH-No VB, LOF. Good FM. Resent order for anatomy [facility]. 02/16/25 <del> </del> 23w 1d 172 lb 7 oz (+2 lb 7 oz) 107/72 Negative <del> </del> Negative 150 24 <del> </del> KW- no vb/lof/ctx. good fm. reviewed US. glucose next visit. CBE classes discussed. 03/16/25 <del> </del> 27w 1d 173 lb 5 oz (+3 lb 5 oz) 111/75 Negative <del> </del> Negative 140 27 <del> </del> SM- no vb lof good fm no regular ctx 04/08/25 <del> </del> 30w 3d 174 lb 3 oz (+4 lb 3 oz) 102/68 Negative <del> </del> Negative 135 30 <del> </del> JV- no lof, vaginal bleeding, or dec fm. has only gained 4 pounds this . growth scan ordered. 04/19/25 <del> </del> 32w 0d 175 lb 3 oz (+5 lb 3 oz) 109/74 Negative <del> </del> Negative 140 32 <del> </del> MH-No VB, LOF. Good FM. Recent nl growth US ROS Constitutional Constitutional: Reports systems reviewed and no addt'l complaints, except as documented and as per HPI ENT HEENT: Reports systems reviewed and no addt'l complaints, except as documented Cardiovascular Cardiovascular: Reports systems reviewed and no addt'l complaints, except as documented Respiratory/Chest Respiratory/Chest: Reports systems reviewed and no addt'l complaints, except as documented Gastrointestinal Gastrointestinal: Reports as per HPI Genitourinary Genitourinary: Reports as per HPI Musculoskeletal Musculoskeletal: Reports systems reviewed and no addt'l complaints, except as documented Integumentary Integumentary: Reports systems reviewed and no addt'l complaints, except as documented Neurologic Neurologic: Reports systems reviewed and no addt'l complaints, except as documented Physical Exam Const alert, oriented x3 and no apparent distress HEENT Head and Scalp: normocephalic and atraumatic Neck full ROM and no lymphadenopathy Chest inspection of chest normal Resp normal respiratory effort GI GI Narrative: gravid, abdomen nontender, AGA Manual OB Exam: dilated 1, effaced 10 and station -3 NST FHR Rate Baby A Baseline: 140 Variability:: Moderate Accelerations:: 15 x 15 Decelerations:: None NST Reactive:: Yes FHR Category:: Category I Uterine Activity:: none Assessment & Plan (1) contractions: COMMENT: 1 cm dilated 04/21. monitored, BMZ given s/p terb x 1. fosfomycin given. no cervical change. (2) Poor weight gain of : QUALIFIERS: Trimester: third trimester Qualified Code(s): O26.13 - Low weight gain in , third trimester COMMENT: Nl growth US (3) Anemia affecting : QUALIFIERS: Trimester: third trimester Qualified Code(s): O99.013 - Anemia complicating , third trimester COMMENT: OTC iron (4) Supervision of normal : QUALIFIERS: Normal : normal first Trimester: third trimester Qualified Code(s): Z34.03 - Encounter for supervision of normal first , third trimester COMMENT: [id number] ANN 06/14/25, boy Minh : Mickey (5) : QUALIFIERS: Weeks of gestation: 32 weeks Qualified Code(s): Z3A.32 - 32 weeks gestation of COMMENT: Discussed genetic/carrier testing, NIPT low risk, male, normal anatomy PLAN: Plan stable no cervical change, dc home fu for katya sprague Charges/Coding Multi Select Codes Visit Charges Observation E&M Codin Observation care discharge (please see other initial note to change code possibly for this visit) Urinary/Genital Urinary/Genital CPT Codes: 80152-56 non-stress test Interp
== END 2025-04-22 07:35 | disposition home or self-care (01) ==
LOC: WPOUT 18:32 → WP 18:32
PROVIDERS: Admitting Provider Obstetrics & Gynecology; PCP Family Medicine; Referring Provider Advanced Practice Midwife; Visit Provider Obstetrics & Gynecology
DX: O47.02 False labor before 37 completed weeks of gestation, second trimester (principal); O26.13 Low weight gain in pregnancy, third trimester; Z3A.32 32 weeks gestation of pregnancy; O99.013 Anemia complicating pregnancy, third trimester
CPT/HCPCS: 96360; 96361 ×2; 36415; 59025; 59050; 81002; 84112; 85025; 87081; 87086; 87653; 96372; 99221; G0378; J0702

== ENCOUNTER 2025-04-22 18:07 | Outpatient (CLI) | payer OTHER, SELFPAY ==
[2025-04-22] MEDS: Betamethasone/Betamethasone 30 MG/5 ML Vial 12 MG IM (18:40)
--- NOTE | 2025-04-26 12:01 | OB.TRI.PN_ITS ---
Progress Notes Progress Note: 30 year old at 32 weeks presenting for second dose of celestone in the setting of contractions. No new concerns. Assessment & Plan (1) contractions: COMMENT: 1 cm dilated 04/21. monitored, BMZ given s/p terb x 1. fosf omycin given. no cervical change. PLAN: s/p two doses of celestone
== END 2025-04-22 18:45 | disposition home or self-care (01) ==
LOC: WPOUT 18:18 → WP 18:19
PROVIDERS: PCP Family Medicine; Visit Provider Student in an Organized Health Care Education/Training Program
DX: O47.03 False labor before 37 completed weeks of gestation, third trimester (principal); O26.13 Low weight gain in pregnancy, third trimester; O99.013 Anemia complicating pregnancy, third trimester; Z3A.32 32 weeks gestation of pregnancy
CPT/HCPCS: 96372; 99221; G0378; J0702

== ENCOUNTER 2025-04-23 08:00 | Outpatient (CLI) | payer OTHER, SELFPAY ==
[2025-04-23 08:13] VITALS: BMI 28.6
[2025-04-23 08:16] VITALS: BP 110/61; PULSE 101; RESP 16; TEMP 36.6; O2SAT 98
--- NOTE | 2025-04-23 10:06 | OB.TRI.HP_ITS ---
HPI - General HPI Narrative BRAVO SULLIVAN, is a 30 F who presents at 32 weeks 4 days for decreased movement. She was also seen earlier this week with contractions and has a planned FFN test on saturday. She is asking for the test to be done now. Maternal Data Information ANN Calculator Estimated Delivery Date Method Current WG Current Estimate 06/14/25 LMP (Certain) 32w 4d Other Estimates 06/15/25 Ultrasound #1 32w 3d PFSH PFSH Home Medications ?Medication ?Instructions ?Recorded ?Last Taken ?Type docosahexaenoic acid 200 mg mg PO 10/23/24 Unknown His tory capsule ( DHA) Allergy/AdvReac Type Severity Reaction Status Date / Time Penicillins AdvReac Vomiting Verified 04/08/25 15:51 Family History Mother Breast cancer Grandmother Multiple sclerosis Grandmother Ovarian cancer Surgical History [place] teeth removed Social History adopted: No household members: spouse housing: house current occupational status: employed 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 current occupational exposures/hazards: No pets and animals: No history of recent travel: Yes ([place]) out of state: Yes out of country: No sexually active: Yes Smoking Status: Never smoker second hand exposure: No alcohol intake: current alcohol intake frequency: holidays/special occasions only details: Not while substance use type: does not use well-balanced diet: daily or most days caffeine: Yes Type: coffee eating out: 1-3 times/week during the past year weight has: remained stable what type of physical activity do you participate in: walking frequency: 5-6 times per week duration: 15-30 minutes/day sajan/hoahaoism: Evangelical seatbelt use: always do you feel safe at home: Yes additional social history: : 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 [employer] History 1 Elective abortions Hx Para Spontaneous abortions 0 Hx # Term Pregnancies Ectopic pregnancies 0 Hx # Pregnancies Multiple births # of living children Visit Details Expected Delivery Route/Plan Labor Preferences- CB/BF classes: encouraged labor support person: Mickey labor intervention preferences: [] pain management options preferred: epidural cut cord/dad catch: cord : yes PP control planned: discussed discussed possible routes of delivery and associated risks: [] special requests: [] Plans Covid status: [] Flu vaccine: given Tdap vaccine: given Rhogam: NA LARC form signed: yes movement and labor precautions reviewed. Problem list reviewed and updated with the most current plan of care details and appropriate orders placed. Relevant counseling for the gestational age provided. Continue routine care and follow up unless otherwise noted in visit notes/problem list details OB Flowsheet Initial Weight: 170 lb Date -?-?-?-?-?-?-?-?-?-?-?-?- EGA Weight BP Urine Prot -?-?-?-?-?-?-?-?-?-?-?-?- Glucose FHR FuHt Pres Dilation -?-?-?-?-?-?-?-?-?-?-?-?- Effaced St Visit Note 10/27/24 -?-?-?-?-?-?-?-?-?-?-?-?- 7w 1d 174 lb (+4 lb) 115/75 -?-?-?-?-?-?-?-?-?-?-?-?- 170 -?-?-?-?-?-?-?-?-?-?--?-?- SM- CRL cons wit h LMP 11/25/24 -?-?-?-?-?-?-?-?-?-?-?-?- 11w 2d 170 lb 8 oz (+8 oz) 103/64 Negative -?-?-?-?-?-?-?-?-?-?-?--?- Negative 165 -?-?-?-?-?-?-?-?-?-?-?-?- JV- CRL measurin g 11 weeks 5 days. nipt today. 12/25/24 -?-?-?-?-?-?-?-?-?-?-?-?- 15w 4d 169 lb (-16 oz) 116/76 Negative -?-?-?-?-?-?-?-?-?-?-?-?- Negative 155 -?-?-?-?-?-?-?-?-?-?-?-?- LC- no vb/crampi ng. declines afp 01/13/25 -?-?-?-?-?-?-?-?-?-?-?-?- 18w 2d 167 lb 7 oz (-2 lb 9 oz) 110/76 Negative -?-?-?-?-?-?-?-?-?-?-?-?- Negative 146 -?-?-?-?-?-?-?-?-?-?-?-?- JV-patient is be ing seen urgently for leaking fluid and cramping. On exam there is no pooling. Ultrasound shows a MVP of 4.66 cm and lots of fluid around the baby. rom plus collected and sent stat. 01/20/25 -?-?-?-?-?-?-?-?-?-?-?-?- 19w 2d 172 lb 1 oz (+2 lb 1 oz) 108/69 Negative -?-?-?-?-?-?-?-?-?-?-?-?- Negative 152 -?-?-?-?-?-?-?-?-?-?-?-?- MH-No VB, LOF. Jacqueline ULRICH. Resent order for anatomy [facility]. 02/16/25 -?-?-?-?-?-?-?-?-?-?-?-?- 23w 1d 172 lb 7 oz (+2 lb 7 oz) 107/72 Negative -?-?-?-?-?-?-?-?-?-?-?-?- Negative 150 24 -?-?-?-?-?-?-?-?-?-?-?-?- KW- no vb/lof/ct x. selena ulrich. reviewed US. glucose next visit. CBE classes discussed. 03/16/25 -?-?-?-?-?-?-?-?-?-?-?-?- 27w 1d 173 lb 5 oz (+3 lb 5 oz) 111/75 Negative -?-?-?-?-?-?-?-?-?-?-?-?- Negative 140 27 -?-?-?-?-?-?-?-?-?-?-?-?- SM- no vb lof go od fm no regular ctx 04/08/25 -?-?-?-?-?-?-?-?-?-?-?-?- 30w 3d 174 lb 3 oz (+4 lb 3 oz) 102/68 Negative -?-?-?-?-?-?-?-?-?-?-?-?- Negative 135 30 -?--?-?-?-?-?-?-?-?-?-?-?- JV- no lof, vagi nal bleeding, or dec fm. has only gained 4 pounds this . growth scan ordered. 04/19/25 -?-?-?-?-?-?-?-?-?-?-?-?- 32w 0d 175 lb 3 oz (+5 lb 3 oz) 109/74 Negative -?-?-?-?-?-?-?-?-?-?-?-?- Negative 140 32 -?-?-?-?-?-?-?-?-?-?-?-?- MH-No VB, LOF. G ood FM. Recent nl growth US ROS Constitutional Constitutional: Reports systems reviewed and no addt'l complaints, except as documented Gastrointestinal Gastrointestinal: Denies bloating, constipation, cramping, diarrhea, nausea or vomiting Genitourinary Genitourinary: Reports other Details: Denies vaginal odor, vaginal bleeding, or vaginal discharge ; Denies difficulty urinating or flank pain Physical Exam Const alert, oriented x3 and no apparent distress HEENT normocephalic Resp normal respiratory effort and normal air movement no CVA tenderness Manual OB Exam: other cx is externally 0.5 cm dilated, 50% effaced and station is high. the cervix is soft and posterior Extremity normal to inspection General Extremity: edema bilateral (trace ) NST FHR Rate Baby A Baseline: 130 Variability:: Moderate Accelerations:: 15 x 15 Decelerations:: None NST Reactive:: Yes FHR Category:: Category I Assessment & Plan (1) contractions: COMMENT: 1 cm dilated 04/21. monitored, BMZ given s/p terb x 1. fosfomycin given. no cervical change. (2) Poor weight gain of : QUALIFIERS: Trimester: third trimester Qualified Code(s): O26.13 - Low weight gain in , third trimester COMMENT: Nl growth US (3) Anemia affecting : QUALIFIERS: Trimester: third trimester Qualified Code(s): O99.013 - Anemia complicating , third trimester COMMENT: OTC iron (4) Supervision of normal : QUALIFIERS: Normal : normal first Trimester: third trimester Qualified Code(s): Z34.03 - Encounter for supervision of normal first , third trimester COMMENT: [id number] ANN 06/14/25, boy Minh : Mickey (5) : QUALIFIERS: Weeks of gestation: 32 weeks Qualified Code(s): Z3A.32 - 32 weeks gestation of COMMENT: Discussed genetic/carrier testing, NIPT low risk, male, normal anatomy (6) Decreased movement: PLAN: Plan ffn collected. no dilation today , nst reactive ok to dc to home and will call with results Charges/Coding Multi Select Codes Visit Charges Office Visit/Consults: [id number] OV L3 Est 20min Urinary/Genital Urinary/Genital CPT Codes: 03565-43 non-stress test Interp
[2025-04-23 10:33] LABS: Fetal Fibronectin Negative; Record Kit Lot#, fFN L4921
== END 2025-04-23 10:10 | disposition home or self-care (01) ==
LOC: WPOUT 08:05 → WP 08:05
PROVIDERS: PCP Family Medicine; Referring Provider Obstetrics & Gynecology; Visit Provider Obstetrics & Gynecology
DX: O36.8130 Decreased fetal movements, third trimester, not applicable or unspecified (principal); O26.13 Low weight gain in pregnancy, third trimester; O99.013 Anemia complicating pregnancy, third trimester; Z3A.32 32 weeks gestation of pregnancy
CPT/HCPCS: 59025; 59050; 82731; 99221; G0378

== ENCOUNTER → 2025-05-17 | Outpatient (CLI) | payer OTHER, SELFPAY ==
--- NOTE | 2025-05-17 15:20 | US_ITS ---
PROCEDURE: OB LIMITED WITH BIOMETRICS 05/17/2025 REASON FOR EXAM: LOW MATERNAL WEIGHT GAIN TECHNIQUE: Procedure Code: USOBGROWTH Modality: US Procedure: OB LIMITED WITH BIOMETRICS COMPARISON: 04/15/25 FINDINGS Cephalic position with cardiac activity of 126 bpm. Maximum vertical pocket of 7.4 Cm and ALLYN of 17.4 Cm. Placenta is anterior position with grade 2. BPD of 9.1, OFD of the 11.8, HC of 33.7, AC of 31.8, and FL of 6.7 Cm corresponding with average gestational age of 36 weeks and 5 days with ANN of 06/09/25. Biometric measurement are within normal limits. Estimated weight of 2750g (43 percentile). US/OB Limited With Biometrics IMPRESSION: Sonographic gestational age of 36 weeks and 5 days with ANN of 06/09/25. Biometr ic measurement are within normal limits. Reading Location: [facility]
== END | disposition home or self-care (01) ==
LOC: US 15:18
PROVIDERS: PCP Family Medicine; Referring Provider Advanced Practice Midwife; Visit Provider Advanced Practice Midwife
DX: O26.13 Low weight gain in pregnancy, third trimester (principal); Z3A.36 36 weeks gestation of pregnancy
CPT/HCPCS: 76816

== ENCOUNTER → 2025-05-19 | Outpatient (CLI) | payer OTHER, SELFPAY ==
--- OUTSIDE RECORDS SUMMARY | 2025-05-19 19:35 | XMS RPT_ITS | CCD ---
Author Organization [facility] Care Team Providers Care Online Marketer Name Role Phone Taya RICHARDS, Dr. Chad Garcia Primary Care Provider Taya RICHARDS, Dr. Chad Garcia Referring Provider [phone] Chris RICHARDS, Dr. Morocho Attending Provider Chris RICHARDS, Dr. Morocho Referring Provider Dr. Sabina Paredes DO Attending Provider Dr. Sabina Paredes DO Referring Provider Krsiten Rios CNM Attending Provider [phone] Ирина SPRING WINDER-CRomelia Attending Provider [phone] Ирина BENAVIDES-CRomelia Referring Provider [phone] Kenyatta Colbert CNM Attending Provider [phone] Dr. Chad Bain MD Primary Care Physician Dr. Chad Bain MD Referring Provider [phone] Dr. Sabina Paredes DO Attending Physician Kristen Rios CNM Attending Physician [phone] Ирина BENAVIDES-Romelia Armstrong Attending Physician [phone] Kenyatta Colbert CNM Attending Physician [phone] Dr. Chad Bain MD Primary Care Physician Dr. Chad Bain MD Referring Provider [phone] Dr. Sabina Paredes DO Attending Physician Dr. Bailee Perez MD Attending Physician Chris RICHARDS Dr. Morocho Referring Provider Bailee Perez Attending Unavailable Schinner, Chad E Primary Care Unavailable Bailee Perez Referring Unavailable Vande Sabina Johnston Referring Unavailabl e Vande VeldeSabina Attending Unavailabl e Schinner, Chad E Primary Care Unavailable Schinner, Chad E Primary Care Unavailable Vande Sabina Johnston Attending Unavailabl e Schinner, Chad E Primary Care Unavailable Ирина SPRING WINDERRomelia Referring Unavailable Ирина SPRING WINDER, Romelia Attending Unavailable Schinner, Chad E Primary Care Unavailable Vande VeldeSabina Attending Unavailabl e Schinner, Chad E Referring Unavailable Schinner, Chad E Referring Unavailable Schinner, Chad E Primary Care Unavailable Bailee Perez Attending Unavailable Schinner, Chad E Attending Unavailable Schinner, Chad E Primary Care Unavailable Schinner, Chad E Referring Unavailable Schinner, Chad E Primary Care Unavailable Bailee Perez Attending Unavailable Schinner, Chad E Referring Unavailable Vande VelSabina causey Attending Unavailabl e Schinner, Chad E Primary Care Unavailable Schinner, Chad E Referring Unavailable Kristen Rios Attending Unavailable Schinner, Chad E Primary Care Unavailable Schinner, Chad E Primary Care Unavailable Schinner, Chad E Referring Unavailable Vande Sabina Johnston Attending Unavailabl e Schinner, Chad E Primary Care Unavailable Schinner, Chad E Referring Unavailable Lahaina SPRING WINDER, Romelia Attending Unavailable Schinner, Chad E Primary Care Unavailable Schinner, Chad E Referring Unavailable Kenyatta Colbert Attending Unavailable Schinner, Chad E Primary Care Unavailable Bailee Perez Attending Unavailable Schinner, Chad E Referring Unavailable Schinner, Chad E Primary Care Unavailable Bailee Perez Attending Unavailable Bailee Perez Referring Unavailable Allergies Allergy Classification Reported Allergen(s) Allergy Type Date of Onset Reaction(s) Facility (13 sources) Penicillins Propensity to adverse reactions 2 Vomiting [facility] Comment on above: Tried sm dose in Apr 2024 w/o reaction - may have outgrown allergy (1 source) Penicillins Drug allergy (disorder) 5 [facility] Repository Medications Current Medications Medication Drug Class(es) Dates Sig (Normalized) Sig (Original) docosahexaenoic acid 200 mg oral capsule (11 sources) Start: 10-23-2024 Completed/Discontinued Medications Medication Drug Class(es) Dates Sig (Normalized) Sig (Original) cefdinir 300 mg oral capsule (11 sources) Cephalosporin Antibacterial Start: 04-02-2024 End: 04-12-2024 take 1 capsule by mouth every twelve hours Cefdinir 300 mg capsule Discontinued 300 mg PO Q12H 20 10 April 02, 2024 12:00am April 11, 2024 1:00am April 12, 2024 1:08am Drospirenone-Ethi nyl Estradiol [Drospirenone 3 Mg-Ethinyl Estradiol 0.02 Mg Tablet] (12 sources) Progestin, Estrogen Start: 07-20-2023 End: 10-23-2024 [...] 2023 12:00am predniSONE 20 mg oral tablet (13 sources) Start: 01-26-2022 End: 07-20-2023 take 2 tablets by mouth once daily Prednisone 20 mg tablet Discontinued 40 mg PO DAILY January 26, 2022 12:00am July 20, 2023 11:58pm Start: 01-26-2022 End: 07-20-2023 take 40 mg by mouth once daily Prednisone Discontinued 40 MG PO DAILY 03 07January 25, 2022 11:00pm July 20, 2023 10:58pm Problems Active Problems Problem Classification Problem Date Documented Da te Episodic/Chronic Allergic reactions (13 sources) Acute allergic reaction; Translations: [Allergy, unspecified, initial encounter] 02-03-2022 Episodic Immunizations and screening for infectious disease (1 source) Encounter for immunization; Translations: [Encounter for immunization] Onset: 04-08-2025 Episodic Nonspecific chest pain (12 sources) Chest pain; Translations: [Chest pain, unspecified] 07-21-2023 Episodic Other complications of (1 source) Anemia of ; Translations: [Anemia complicating , unspecified trimester] 03-18-2025 Chronic Comment on above: OTC iron Other complications of (1 source) Low weight gain in , unspecified trimester; Translations: [Low weight gain in , unspecified trimester] Onset: 04-08-2025 Episodic Other complications of (1 source) Other specified related conditions, unspecified trimester; Translations: [Other specified related conditions, unspecified trimester] Onset: 01-22-2025 Episodic Other and delivery including normal (20 sources) Normal ; Translations: [Encounter for supervision of normal , unspecified, unspecified trimester] Onset: 02-19-2025 10-27-2024 Episodic Comment on above: ANN 06/14/25, Hu sband: Mickey Discussed genetic/ca rrier testing - undecided Discussed genetic/ca rrier testing, NIPT low risk, male [id number] ANN 06/14/25, : Mickey Discussed genetic/ca rrier testing, NIPT low risk, male, normal anatomy [id number] ANN 06/14/25, eliseo Wilkinson : Mickey Other upper respiratory infections (11 sources) Acute pharyngitis; Translations: [Acute pharyngitis, unspecified] 10-23-2024 Episodic Residual codes; unclassified (1 source) 23 weeks gestation of ; Translations: [23 weeks gestation of ] Onset: 02-16-2025 Episodic Residual codes; unclassified (1 source) 18 weeks gestation of ; Translations: [18 weeks gestation of ] Onset: 01-13-2025 Episodic Past or Other Problems Problem Classification Problem Date Documented Da te Episodic/Chronic Residual codes; unclassified (1 source) 11 weeks gestation of ; Translations: [11 weeks gestation of ] Onset: 11-25-2024 Episodic Results Test Name Value Interpretation Reference Range Facility Rescue Worker Office Visit Reporton 04-08-2025 Rescue Worker Office Visit Report [facility] [address], [address] [place] [address] OFFICE VISIT Date of Service: 04/08/25 MR#: [id number] Acct: [id number] Name: BRAVO SULLIVAN Rep #: [id number] : 1995 Provider: Dr. Sabina De La Garza DO Age/Sex: 30/F Location: [facility] Status: Signed Intake Vital Signs 01/20/25 15:41 03/16/25 15:30 04/08/25 15:53 Height 5 ft 5 in 5 ft 5 in 5 ft 5 in Weight: 173 lb 5 oz 174 lb 3 oz BMI 28.8 29.0 BP 111/75 102/68 Intake Visit Reasons: 30 WK 3D OB Chief Complaint: 30wk OB Shipping Point Inspector Required: No Is patient in pain?: No Allergies Penicillins Adverse Reaction (Verified 04/08/25 15:51) Vomiting Medications ???Medication ???Instructions ???Recorded ???Confirmed ???Type docosahexaenoic acid 200 mg mg PO 10/23/24 04/08/25 History capsule ( DHA) Last Menstrual Period: 09/07/24 Zika: Zika virus screening: Negative : No Have you fallen in the past year?: No PFSH PFSH Surgical History Alger teeth removed Family History Mother Breast cancer Grandmother Multiple sclerosis Grandmother Ovarian cancer Social History adopted: No household members: spouse housing: house current occupational status: employed 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 OB Visit ANN Calculator Estimated Delivery Date Method Current WG Current Estimate 06/14/25 LMP (Certain) 30w 3d Other Estimates 06/15/25 Ultrasound #1 30w 2d Expected Delivery Route/Plan Labor Preferences- CB/BF classes: [] labor support person: [] labor intervention preferences: [] pain management options preferred: [] cut cord/dad catch: [] : [] PP control planned: [] discussed possible routes of delivery and associated risks: [] special requests: [] Specific Issue/Plans Covid status: [] Flu vaccine: given Tdap vaccine: [] Rhogam: [] LARC form signed: [] movement and labor precautions reviewed. Problem list reviewed and updated with the most current plan of care details and appropriate orders placed. Relevant counseling for the gestational age provided. Continue routine care and follow up unless otherwise noted in visit notes/problem list details Initial Weight: 170 lb Date -???-???-???-???-?? ?-???-???-???-???-? ??-???-???- EGA Weight BP Urine Prot -???-???-???-???-?? ?-???-???-???-???-? ??-???-???- Glucose FHR FuHt Pres Dilation -???-???-???-???-?? ?-???-???-???-???-? ??-???-???- Effaced St Visit Note 10/27/24 -???-???-???-???-?? ?-???-???-???-???-? ??-???-???- 7w 1d 174 lb (+4 lb) 115/75 -???-???-???-???-?? ?-???-???-???-???-? ??-???-???- 170 -???-???-???-???-?? ?-???-???-???-???-? ??-???-???- SM- CRL cons with LMP 11/25/24 -???-???-???-???-?? ?-???-???-???-???-? ??-???-???- 11w 2d 170 lb 8 oz (+8 oz) 103/64 Negative -???-???-???-???-?? ?-???-???-???-???-? ??-???-???- Negative 165 -???-???-???-???-?? ?-???-???-???-???-? ??-???-???- JV- CRL angela uring 11 weeks 5 days. nipt today. 12/25/24 -???-???-???-???-?? ?-???-???-???-???-? ??-???-???- 15w 4d 169 lb (-16 oz) 116/76 Negative -???-???-???-???-?? ?-???-???-???-???-? ??-???-???- Negative 155 -???-???-???-???-?? ?-???-???-???-???-? ??-???-???- LC- no vb/cr amping. declines afp 01/13/25 -???-???-???-???-?? ?-???-???-???-???-? ??-???-???- 18w 2d 167 lb 7 oz (-2 lb 9 oz) 110/76 Negative -???-???-???-???-?? ?-???-???-???-???-? ??-???-???- Negative 146 -???-???-???-???-?? ?-???-???-???-???-? ??-???-???- JV-patient i s bein (more content not included)... Normal [facility] Absolute lymphocyte countOrd ered By: Kenyatta Colbert on 03-16-2025 Lymphocytes Auto (Unsp spec) [#/Vol] 2.74 10*3/uL 0.83-4.51 [facility] Absolute neutrophil countOrd ered By: Kenyatta Colbert on 03-16-2025 Neutrophils (Bld) [#/Vol] 8.5 10*3/uL High 2.0-7.7 [facility] Automated lymphocyte count a s percentage of total leukocytesOrdered By: Kenyatta Colbert on 03-16-2025 Lymphocytes/100 WBC Auto (Unsp spec) 22.8 % 19-41 [facility] Basophil percentageOrdered B y: Kenyatta Colbert on 03-16-2025 Basophils/100 WBC (Bld) 0.2 % 0-1 [facility] CBC W/Diff, Automatedon 03-03 Absolute Lymph 2.74 X10 3/uL Normal 0.83-4.51 [facility] Comment on above: Performed By: #### L 509.8002, L3890.6006, L100.0100, L501.0250 #### [facility] [place], [address] Absolute Neut 8.5 X10 3/uL High 2.0-7.7 [facility] Comment on above: Performed By: #### L 509.8002, L3890.6006, L100.0100, L501.0250 #### [facility] [address] [place], [address] Basophils/100 WBC (Bld) 0.2 % Normal 0-1 [facility] Comment on above: Performed By: #### L 509.8002, L3890.6006, L100.0100, L501.0250 #### [facility] [address] [place], [address] Eosinophils/100 WBC (Bld) 1.1 % Normal 0-5 [facility] Comment on above: Performed By: #### L 509.8002, L3890.6006, L100.0100, L501.0250 #### [facility] [address] [place], [address] Erythrocyte distribution width (RBC) [Ratio] 13.3 % Normal 11.6-14.6 [facility] Comment on above: Performed By: #### L 509.8002, L3890.6006, L100.0100, L501.0250 #### [facility] [address] [place], [address] Hematocrit (Bld) [Volume fraction] 33.0 % Low 37-47 [facility] Comment on above: Performed By: #### L 509.8002, L3890.6006, L100.0100, L501.0250 #### [facility] [address] [place], [address] Hemoglobin (Bld) [Mass/Vol] 10.9 g/dL Low 12.0-15.0 [facility] Comment on above: Performed By: #### L 509.8002, L3890.6006, L100.0100, L501.0250 #### [facility] [address] [place], [address] IG% 0.300 Normal 0.0-0.9 [facility] Comment on above: Result Comment: IG% - Immature Granulocytes (promyelocytes, myelocytes and metamyelocytes) > 1% indicates that a LEFT SHIFT is Present. Performed By: #### L 509.8002, L3890.6006, L100.0100, L501.0250 #### [facility] [address] [place], [address] Lymphocytes/100 WBC (Bld) 22.8 % Normal 19-41 [facility] Comment on above: Performed By: #### L 509.8002, L3890.6006, L100.0100, L501.0250 #### [facility] [address] [place], [address] MCH (RBC) [Entitic mass] 30.4 pg Normal 27.0-32.0 [facility] Comment on above: Performed By: #### L 509.8002, L3890.6006, L100.0100, L501.0250 #### [facility] [address] [place], [address] MCHC (RBC) [Mass/Vol] 33.0 g/dL Normal 32-36 [facility] Comment on above: Performed By: #### L 509.8002, L3890.6006, L100.0100, L501.0250 #### [facility] [address] [place], [address] MCV (RBC) [Entitic vol] 92.2 fL Normal 81-99 [facility] Comment on above: Performed By: #### L 509.8002, L3890.6006, L100.0100, L501.0250 #### [facility] [address] [place], [address] Monocytes/100 WBC (Bld) 4.8 % Normal 0-10 [facility] Comment on above: Performed By: #### L 509.8002, L3890.6006, L100.0100, L501.0250 #### [facility] [address] [place], [address] Neutrophils/100 WBC (Bld) 70.8 % High 47-70 [facility] Comment on above: Performed By: #### L 509.8002, L3890.6006, L100.0100, L501.0250 #### [facility] [address] [place], [address] Nucleated RBC (Bld) [#/Vol] 0 10*3/uL Normal 0-5 [facility] Comment on above: Performed By: #### L 509.8002, L3890.6006, L100.0100, L501.0250 #### [facility] [address] [place], [address] Platelet mean volume (Bld) [Entitic vol] 9.8 fL Normal 6.2-12.0 [facility] Comment on above: Performed By: #### L 509.8002, L3890.6006, L100.0100, L501.0250 #### [facility] [address] [place], [address] Platelets (Bld) [#/Vol] 282 10*3/uL Normal 150-450 [facility] Comment on above: Performed By: #### L 509.8002, L3890.6006, L100.0100, L501.0250 #### [facility] [address] [place], [address] RBC (Bld) [#/Vol] 3.58 10*6/uL Low 4.2-5.4 [facility] Comment on above: Performed By: #### L 509.8002, L3890.6006, L100.0100, L501.0250 #### [facility] [address] [place], [address] RDW SD 45.1 fl High 35.1-43.9 [facility] Comment on above: Performed By: #### L 509.8002, L3890.6006, L100.0100, L501.0250 #### [facility] [address] [place], [address] WBC (Bld) [#/Vol] 12.0 10*3/uL High 4.4-11.0 [facility] Comment on above: Performed By: #### L 509.8002, L3890.6006, L100.0100, L501.0250 #### [facility] [address] [place], [address] Eosinophil percentageOrdered By: Kenyatta Colbert on 03-16-2025 Eosinophils/100 WBC (Bld) 1.1 % 0-5 [facility] Erythrocyte distribution wid th ratioOrdered By: Kenyatta Colbert on 03-16-2025 Erythrocyte distribution width (RBC) [Ratio] 13.3 % 11.6-14.6 [facility] Erythrocyte distribution wid th standard deviationOrdered By: Kenyatta Colbert on 03-16-2025 Erythrocyte distribution width (RBC) [Ratio] 45.1 fl High 35.1-43.9 [facility] Glucose Challenge Gest 1H 50 gamaliel 03-16-2025 GLU GEST 50g 1H 95 mg/dL Normal 70-140 [facility] Comment on above: Performed By: #### L 509.8002, L3890.6006, L100.0100, L501.0250 #### [facility] [address] [place], [address] Glucose measurement at 2 linda rs post-dose gestational glucose tolerance testOrdered By: Kenyatta Colbert on 03-16-2025 Glucose [Mass/Vol] 95 mg/dL 70-140 [facility] HIVon 03-16-2025 HIV Non-Reactive Normal Nonreactive [facility] Comment on above: Result Comment: Non- Reactive Reactive Repeatedly reactive samples must be confirmed according to CDC recommended confirmatory algorithms. The subresults for either HIVAG or AHIV can be used as an aid in the selection of the confirmation algorithm for reactive samples. Send out specimens with Reactive results to [facility] for confirmation. Order the HIV antibody detection and differentiation: lc#[id number] Performed By: #### L 509.8002, L3890.6006, L100.0100, L501.0250 #### [facility] [address] [place], [address] Hematocrit Auto (Bld) [Volum e fraction]Ordered By: Kenyatta Colbert on 03-16-2025 Hematocrit (Bld) [Volume fraction] 33.0 % Low 37-47 [facility] Hemoglobin measurementOrdere d By: Kenyatta Colbert on 03-16-2025 Hemoglobin (Bld) [Mass/Vol] 10.9 g/dL Low 12.0-15.0 [facility] Immature granulocytes/100 WB C Auto (Bld)Ordered By: Kenyatta Colbert on 03-16-2025 Immature granulocytes/100 WBC (Bld) 0.300 % 0.0-0.9 [facility] Comment on above: IG% - Immature Granu locytes (promyelocytes, myelocytes and metamyelocytes) > 1% indicates that a LEFT SHIFT is Present. Laboratory - Chemistry and C hemistry - challengeOrdered By: Bailee Perez on 03-16-2025 Glucose Ql (U) Negative [facility] Laboratory - UrinalysisOrder ed By: Bailee Perez on 03-16-2025 Protein Ql (U) Negative [facility] MCV (mean corpuscular volume ) determinationOrdered By: Kenyatta Colbert on 03-16-2025 MCV (RBC) [Entitic vol] 92.2 fL 81-99 [facility] Mean corpuscular hemoglobin (MCH) determinationOrdered By: Kenyatta Colbert on 03-16-2025 MCH (RBC) [Entitic mass] 30.4 pg 27.0-32.0 [facility] Mean corpuscular hemoglobin concentration (MCHC) determinationOrdered By: Kenyatta Colbert on 03-16-2025 MCHC (RBC) [Mass/Vol] 33.0 g/dL 32-36 [facility] Mean platelet volume determi nationOrdered By: Kenyatta Colbert on 03-16-2025 Platelet mean volume (Bld) [Entitic vol] 9.8 fL 6.2-12.0 [facility] Monocyte percentageOrdered B y: Kenyatta Colbert on 03-16-2025 Monocytes/100 WBC (Bld) 4.8 % 0-10 [facility] Neutrophil percentageOrdered By: Kenyatta Colbert on 03-16-2025 Neutrophils/100 WBC (Bld) 70.8 % High 47-70 [facility] No Panel InformationOrdered By: Kenyatta Colbert on 03-16-2025 HIV (1&2) Antibody Non-Reactive Nonreactive [facility] Comment on above: Non-ReactiveReactive Repeatedly reactive samples must be confirmed according to CDC recommended confirmatory algorithms. The subresults for either HIVAG or AHIV can be used as an aid in the selection of the confirmation algorithm for reactive samples.Send out specimens with Reactive results to [facility] for confirmation.Order the HIV antibody detection and differentiation: #[id number] Nucleated red blood cell per centageOrdered By: Kenyatta Colbert on 03-16-2025 Nucleated RBC/100 WBC (Bld) [Ratio] 0 % 0-5 [facility] Rescue Worker Office Visit Reporton 03-16-2025 Rescue Worker Office Visit Report [facility] [address], [address] [place] [address] OFFICE VISIT Date of Service: 03/16/25 MR#: [id number] Acct: [id number] Name: BRAVO SULLIVAN Rep #: [id number] : 1995 Provider: Dr. Bailee banuelos MD Age/Sex: 30/F Location: [facility] [place] Status: Signed Intake Vital Signs 01/20/25 15:41 02/16/25 15:14 03/16/25 15:30 Height 5 ft 5 in 5 ft 5 in 5 ft 5 in Weight: 173 lb 5 oz BMI 28.8 BP 111/75 Intake Visit Reasons: 27wk1d ob/glucose Shipping Point Inspector Required: No Is patient in pain?: No Allergies Penicillins Adverse Reaction (Verified 03/16/25 15:30) Vomiting Medications ???Medication ???Instructions ???Recorded ???Confirmed ???Type docosahexaenoic acid 200 mg mg PO 10/23/24 03/16/25 History capsule ( DHA) Last Menstrual Period: 09/07/24 Zika: Zika virus screening: Negative : No PFSH PFSH Surgical History Alger teeth removed Family History Mother Breast cancer Grandmother Multiple sclerosis Grandmother Ovarian cancer Social History adopted: No household members: spouse housing: house current occupational status: employed 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 OB Visit ANN Calculator Estimated Delivery Date Method Current WG Current Estimate 06/14/25 LMP (Certain) 27w 1d Other Estimates 06/15/25 Ultrasound #1 27w 0d Expected Delivery Route/Plan Labor Preferences- CB/BF classes: [] labor support person: [] labor intervention preferences: [] pain management options preferred: [] cut cord/dad catch: [] : [] PP control planned: [] discussed possible routes of delivery and associated risks: [] special requests: [] Specific Issue/Plans Covid status: [] Flu vaccine: given Tdap vaccine: [] Rhogam: [] LARC form signed: [] movement and labor precautions reviewed. Problem list reviewed and updated with the most current plan of care details and appropriate orders placed. Relevant counseling for the gestational age provided. Continue routine care and follow up unless otherwise noted in visit notes/problem list details Initial Weight: 170 lb Date -???-???-???-???-?? ?-???-???-???-???-? ??-???-???- EGA Weight BP Urine Prot -???-???-???-???-?? ?-???-???-???-???-? ??-???-???- Glucose FHR FuHt Pres Dilation -???-???-???-???-?? ?-???-???-???-???-? ??-???-???- Effaced St Visit Note 10/27/24 -???-???-???-???-?? ?-???-???-???-???-? ??-???-???- 7w 1d 174 lb (+4 lb) 115/75 -???-???-???-???-?? ?-???-???-???-???-? ??-???-???- 170 -???-???-???-???-?? ?-???-???-???-???-? ??-???-???- SM- CRL cons with LMP 11/25/24 -???-???-???-???-?? ?-???-???-???-???-? ??-???-???- 11w 2d 170 lb 8 oz (+8 oz) 103/64 Negative -???-???-???-???-?? ?-???-???-???-???-? ??-???-???- Negative 165 -???-???-???-???-?? ?-???-???-???-???-? ??-???-???- JV- CRL angela uring 11 weeks 5 days. nipt today. 12/25/24 -???-???-???-???-?? ?-???-???-???-???-? ??-???-???- 15w 4d 169 lb (-16 oz) 116/76 Negative -???-???-???-???-?? ?-???-???-???-???-? ??-???-???- Negative 155 -???-???-???-???-?? ?-???-???-???-???-? ??-???-???- LC- no vb/cr amping. declines afp 01/13/25 -???-???-???-???-?? ?-???-???-???-???-? ??-???-???- 18w 2d 167 lb 7 oz (-2 lb 9 oz) 110/76 Negative -???-???-???-???-?? ?-???-???-???-???-? ??-???-???- Negative 146 -???-???-???-???-?? ?-???-???-???-???-? ??-???-???- JV-patient i s being seen urgently for leaking fluid and cramping. On exam there is no pooling (more content not included)... Normal [facility] Platelet countOrdered By: Daniel Colbert on 03-16-2025 Platelets (Bld) [#/Vol] 282 10*3/uL 150-450 [facility] RBC Auto (Bld) [#/Vol]Ordere d By: Kenyatta Colbert on 03-16-2025 RBC (Bld) [#/Vol] 3.58 10*6/uL Low 4.2-5.4 [facility] Syphilis Antibodieson 2024 Syphilis Abs Non-Reactive Normal Nonreactive [facility] Comment on above: Performed By: #### L 509.8002, L3890.6006, L100.0100, L501.0250 #### [facility] [address] [place], [place], [address] White blood cell (WBC) count Ordered By: Kenyatta Colbert on 03-16-2025 WBC (Bld) [#/Vol] 12.0 10*3/uL High 4.4-11.0 [facility] Laboratory - Chemistry and C hemistry - challengeOrdered By: Kenyatta Colbert on 02-16-2025 Glucose Ql (U) Negative [facility] Laboratory - UrinalysisOrder ed By: Kenyatta Colbert on 02-16-2025 Protein Ql (U) Negative [facility] Rescue Worker Office Visit Reporton 02-16-2025 Rescue Worker Office Visit Report [facility]'[address], [address] [place] [address] OFFICE VISIT Date of Service: 02/16/25 MR#: [id number] Acct: [id number] Name: BRAVO SULLIVAN Rep #: [id number] : 1995 Provider: DAMASO Tracy ams Age/Sex: 30/F Location: [facility] Status: Signed Intake Vital Signs 11/25/24 10:48 01/20/25 15:41 02/16/25 15:13 02/16/25 15:14 Height 5 ft 5 in 5 ft 5 in 5 ft 5 in 5 ft 5 in Weight: 172 lb 7 oz BMI 28.7 BP 107/72 Intake Visit Reasons: 23wk ob Chief Complaint: 23 wk OB Shipping Point Inspector Required: No Is patient in pain?: No Allergies Penicillins Adverse Reaction (Verified 02/16/25 15:12) Vomiting Medications ???Medication ???Instructions ???Recorded ???Confirmed ???Type docosahexaenoic acid 200 mg mg PO 10/23/24 02/16/25 History capsule ( DHA) Last Menstrual Period: 09/07/24 : No PFSH PFSH Surgical History Alger teeth removed Family History Mother Breast cancer Grandmother Multiple sclerosis Grandmother Ovarian cancer Social History adopted: No household members: spouse housing: house current occupational status: employed 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 OB Visit ANN Calculator Estimated Delivery Date Method Current WG Current Estimate 06/14/25 LMP (Certain) 23w 1d Other Estimates 06/15/25 Ultrasound #1 23w 0d Expected Delivery Route/Plan Labor Preferences- CB/BF classes: [...] ??-???-???- LC- no vb/cr amping. declines afp 01/13/25 -???-???-???-???-?? ?-???-???-???-???-? ??-???-???- 18w 2d 167 lb 7 oz 110/76 Negative -???-???-???-???-?? ?-???-???-???-???-? ??-???-???- Negative 146 -???-???-???-???-?? ?-???-???-???-???-? ??-???-???- JV-patient i s being seen urgently for leaking fluid and cramping. On exam there is no pooling. Ultrasound shows a MVP of 4.66 cm and lots of fluid around the baby. [facility] collected and sent stat. (more content not included)... Normal [facility] OB Anatomy w/ Transvaginalon 02-03-2025 OB Anatomy w/ Transvaginal [facility] Imaging Services [address] [place] [address] OB Anatomy w/ Transvaginal MR#: [id number] Acct: [id number] Name: BRAVO SULLIVAN Rep #: [id number] : 1995 F 30 From: Ricardo caldwell MD PCP: Dr. Chad Bain MD Status: REG CLI Study: OB Anatomy w/ Transvaginal Date of Exam: 02/03 Exam# [id number] Ordering Dr: Romelia Gifford SPRING WINDER SPRING WINDER -C PROCEDURE: OB ANATOMY W/ TRANSVAGINAL 02/03/2025 REASON FOR EXAM: ANATOMY TECHNIQUE: Procedure Code: USOBANATVAG Modality: US Procedure: OB ANATOMY W/ TRANSVAGINAL COMPARISON: None FINDINGS Number: 1 Position: Breech Placental Position: Anterior and not low-lying Placental Abnormalities: No evidence of previa. DIMENSIONS: Biparietal Diameter: 5.03 cm: 21 weeks and 2 days: 47 percentile/ Head Circumference: 20.15 cm: 22 weeks and 2 days: 81 percentile/ Abdominal Circumference: 17.27 cm: 22 weeks and 2 days: 73rd percentile/ Femur Length: 3.47 cm: 21 weeks and 0 days: 29 percentile/ ESTIMATED WEIGHT: 440 g plus/-66 g ESTIMATED WEIGHT PERCENTILE (24+ weeks): 63 ESTIMATED GESTATIONAL AGE: Baseline: 21 weeks and 2 days By Ultrasound: 21 weeks and 6 days ESTIMATED DATE OF DELIVERY: Baseline: June 14, 2025 By Ultrasound: June 10, 2025 BIOPHYSICAL ASSESSMENT: Amniotic Fluid Volume: 5.7 cm Amniotic Fluid Index: Within normal limits. (8-24 cm normal range) Cardiac Motion: 160 beats per minute (average) Trunk and Limb Motion: Present. MATERNAL ANATOMY: Adnexa: Neither maternal ovary is successfully identified. Cervical Length (if measured): 4.9 cm ANATOMY: Spine: Unremarkable Cranium: Unremarkable Cerebellum: Unremarkable Cisterna Magna: Unremarkable Cavum Septum Pellucidi: Unremarkable Lateral Ventricles: Unremarkable Choroid Plexus: Unremarkable Midline Falx: Unremarkable Nuchal Fold: Unremarkable Upper Lip: Unremarkable Heart: Unremarkable Ventricular Outflow Tracts: Unremarkable Stomach: Unremarkable Kidneys: Unremarkable Bladder: Unremarkable Umbilical Cord: Unremarkable Extremities: Unremarkable US/OB Anatomy w/ Transvaginal IMPRESSION: Single live intrauterine gestation with a mean gestational age of 21 weeks and 6 days. Reading Location: [place] [address] CC: RAND Gifford; Dr. Chad Bain MD Food Scientist: Signed Normal [facility] Laboratory - Chemistry and C hemistry - challengeOrdered By: Romelia Gifford on 01-20-2025 Glucose Ql (U) Negative [facility] - UrinalysisOrder ed By: Romelia Gifford on 01-20-2025 Protein Ql (U) Negative [facility] Rescue Worker Office Visit Reporton 01-20-2025 Rescue Worker Office Visit Report [facility]'s [address], [address] [place] [address] OFFICE VISIT Date of Service: 01/20/25 MR#: [id number] Acct: [id number] Name: BRAVO SULLIVAN Rep #: [id number] : 1995 Provider: RAND gamboa Age/Sex: 30/F Location: [facility] Status: Signed Intake Vital Signs 10/27/24 11:49 01/13/25 13:25 01/20/25 15:41 Height 5 ft 5 in 5 ft 5 in 5 ft 5 in Weight: 172 lb 1 oz BMI 28.6 BP 108/69 Intake Visit Reasons: 19wk ob Chief Complaint: 19 Week OB Shipping Point Inspector Required: No Is patient in pain?: No Allergies Penicillins Adverse Reaction (Verified 01/20/25 15:42) Vomiting Medications ???Medication ???Instructions ???Recorded ???Confirmed ???Type docosahexaenoic acid 200 mg mg PO 10/23/24 01/20/25 History capsule ( DHA) Last Menstrual Period: 09/07/24 Zika: Zika virus screening: Negative : No PFSH PFSH Surgical History Alger teeth removed Family History Mother Breast cancer Grandmother Multiple sclerosis Grandmother Ovarian cancer Social History adopted: No household members: spouse housing: house current occupational status: employed 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 OB Visit ANN Calculator Estimated Delivery Date Method Current WG Current Estimate 06/14/25 LMP (Certain) 19w 2d Other Estimates 06/15/25 Ultrasound #1 19w 1d Expected Delivery Route/Plan Labor Preferences- CB/BF [...] ??-???-???- LC- no vb/cr amping. declines afp 01/13/25 -???-???-???-???-?? ?-???-???-???-???-? ??-???-???- 18w 2d 167 lb 7 oz 110/76 Negative -???-???-???-???-?? ?-???-???-???-???-? ??-???-???- Negative 146 -???-???-???-???-?? ?-???-???-???-???-? ??-???-???- JV-patient i s being seen urgently for leaking fluid and cramping. On exam there is no pooling. Ultrasound shows a MVP of 4.66 cm and lots of fluid around the baby. rom (more content not included)... Normal [facility] ([facility]) Rupture Of Membraneson 01-13-2025 ROM Negative Normal Negative [facility] Comment on above: Result Comment: Amni otic fluid not present indicates No Rupture of Membranes at time of specimen collection. Performed By: #### L 900.0098 #### [facility] [place], [address] Laboratory - Chemistry and C hemistry - challengeOrdered By: Sabina Johnston on 01-13-2025 Glucose Ql (U) Negative [facility] - UrinalysisOrder ed By: Sabina Johnston on 01-13-2025 Protein Ql (U) Negative [facility] Rescue Worker Office Visit Reporton 01-13-2025 Rescue Worker Office Visit Report [facility] [address], [address] [place] [address] OFFICE VISIT Date of Service: 01/13/25 MR#: [id number] Acct: [id number] Name: BRAVO SULLIVAN Rep #: [id number] : 1995 Provider: Dr. Sabina De La Garza DO Age/Sex: 29/F Location: [facility] Status: Signed Intake Vital Signs 12/25/24 15:28 01/13/25 13:24 01/13/25 13:25 Height 5 ft 5 in 5 ft 5 in 5 ft 5 in Weight: 167 lb 7 oz BMI 27.8 BP 110/76 Intake Visit Reasons: OB, watery discharge, cramping Shipping Point Inspector Required: No Is patient in pain?: No Allergies Penicillins Adverse Reaction (Verified 01/13/25 13:23) Vomiting Medications ???Medication ???Instructions ???Recorded ???Confirmed ???Type docosahexaenoic acid 200 mg mg PO 10/23/24 01/13/25 History capsule ( DHA) Last Menstrual Period: 09/07/24 Zika: Zika virus screening: Negative : No PFSH PFSH Surgical History [place] teeth removed Family History Mother Breast cancer Grandmother Multiple sclerosis Grandmother Ovarian cancer Social History adopted: No household members: spouse housing: house current occupational status: employed 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 declines afp 01/13/25 -???-???-???-???-?? ?-???-???-???-???-? ??-???-???- 18w 2d 167 lb 7 oz 110/76 Negative -???-???-???-???-?? ?-???-???-???-???-? ??-???-???- Negative 146 -???-???-???-???-?? ?-???-???-???-???-? ??-???-???- JV-patient i s being seen urgently for leaking fluid and cramping. On exam there is no pooling. Ultrasound shows a MVP of 4.66 cm and lots of flui (more content not included)... Normal [facility] - Chemistry and C hemistry - challengeOrdered By: Kristen Rios on 12-25-2024 Glucose Ql (U) Negative [facility] - UrinalysisOrder ed By: Kristen Rios on 12-25-2024 Protein Ql (U) Negative [facility] Rescue Worker Office Visit Reporton 12-25-2024 Rescue Worker Office Visit Report [facility] [address], [address] [place] [address] OFFICE VISIT Date of Service: 12/25/24 MR#: [id number] Acct: [id number] Name: BRAVO SULLIVAN Rep #: [id number] : 1995 Provider: DAMASO kang Age/Sex: 29/F [place] [facility] Status: Signed Intake Vital Signs 10/27/24 11:49 11/25/24 10:48 12/25/24 15:28 Height 5 ft 5 in 5 ft 5 in 5 ft 5 in Weight: 169 lb BMI 28.1 BP 116/76 Intake Visit Reasons: 15wk ob Shipping Point Inspector Required: No Is patient in pain?: No Allergies Penicillins Adverse Reaction (Verified 12/25/24 15:29) Vomiting Medications ???Medication ???Instructions ???Recorded ???Confirmed ???Type docosahexaenoic acid 200 mg mg PO 10/23/24 12/25/24 History capsule ( DHA) Last Menstrual Period: 09/07/24 Zika: Zika virus screening: Negative : No Have you fallen in the past year?: No PFSH PFSH Surgical History [place] teeth removed Family History Mother Breast cancer Grandmother Multiple sclerosis Grandmother Ovarian cancer Social History adopted: No household members: spouse housing: house current occupational status: employed 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 Normal [facility] Absolute lymphocyte countOrd ered By: Bailee Perez on 11-25-2024 Lymphocytes Auto (Unsp spec) [#/Vol] 2.35 10*3/uL 0.83-4.51 [facility] Absolute neutrophil countOrd ered By: Bailee Perez on 11-25-2024 Neutrophils (Bld) [#/Vol] 8.4 10*3/uL High 2.0-7.7 [facility] Automated lymphocyte count a s percentage of total leukocytesOrdered By: Bailee Perez on 11-25-2024 Lymphocytes/100 WBC Auto (Unsp spec) 20.2 % 19-41 [facility] Basophil percentageOrdered B y: Bailee Perez on 11-25-2024 Basophils/100 WBC (Bld) 0.3 % 0-1 [facility] CBC W/Diff, Automatedon 11-02 Absolute Lymph 2.35 X10 3/uL Normal 0.83-4.51 [facility] Comment on above: Performed By: #### L 100.0100, L3890.6301, L509.4006, L3890.6102, L509.8002, BTS, L3890.6006 #### [facility] [address] [place], [address] Absolute Neut 8.4 X10 3/uL High 2.0-7.7 [facility] Comment on above: Performed By: #### L 100.0100, L3890.6301, L509.4006, L3890.6102, L509.8002, BTS, L3890.6006 #### [facility] [address] [place], [address] Basophils/100 WBC (Bld) 0.3 % Normal 0-1 [facility] Comment on above: Performed By: #### L 100.0100, L3890.6301, L509.4006, L3890.6102, L509.8002, BTS, L3890.6006 #### [facility] [address] [place], [address] Eosinophils/100 WBC (Bld) 1.4 % Normal 0-5 [facility] Comment on above: Performed By: #### L 100.0100, L3890.6301, L509.4006, L3890.6102, L509.8002, BTS, L3890.6006 #### [facility] [address] [place], [address] Erythrocyte distribution width (RBC) [Ratio] 13.2 % Normal 11.6-14.6 [facility] Comment on above: Performed By: #### L 100.0100, L3890.6301, L509.4006, L3890.6102, L509.8002, BTS, L3890.6006 #### [facility] [address] [place], [address] Hematocrit (Bld) [Volume fraction] 38.4 % Normal 37-47 [facility] Comment on above: Performed By: #### L 100.0100, L3890.6301, L509.4006, L3890.6102, L509.8002, BTS, L3890.6006 #### [facility] [address] [place], [address] Hemoglobin (Bld) [Mass/Vol] 12.9 g/dL Normal 12.0-15.0 [facility] Comment on above: Performed By: #### L 100.0100, L3890.6301, L509.4006, L3890.6102, L509.8002, BTS, L3890.6006 #### [facility] [address] [place], [address] IG% 0.300 Normal 0.0-0.9 [facility] Comment on above: Result Comment: IG% - Immature Granulocytes (promyelocytes, myelocytes and metamyelocytes) > 1% indicates that a LEFT SHIFT is Present. Performed By: #### L 100.0100, L3890.6301, L509.4006, L3890.6102, L509.8002, BTS, L3890.6006 #### [facility] [address] [place], [address] Lymphocytes/100 WBC (Bld) 20.2 % Normal 19-41 [facility] Comment on above: Performed By: #### L 100.0100, L3890.6301, L509.4006, L3890.6102, L509.8002, BTS, L3890.6006 #### [facility] [address] [place], [address] MCH (RBC) [Entitic mass] 30.5 pg Normal 27.0-32.0 [facility] Comment on above: Performed By: #### L 100.0100, L3890.6301, L509.4006, L3890.6102, L509.8002, BTS, L3890.6006 #### [facility] [address] [place], [address] MCHC (RBC) [Mass/Vol] 33.6 g/dL Normal 32-36 [facility] Comment on above: Performed By: #### L 100.0100, L3890.6301, L509.4006, L3890.6102, L509.8002, BTS, L3890.6006 #### [facility] [address] [place], [address] MCV (RBC) [Entitic vol] 90.8 fL Normal 81-99 [facility] Comment on above: Performed By: #### L 100.0100, L3890.6301, L509.4006, L3890.6102, L509.8002, BTS, L3890.6006 #### [facility] [address] [place], [address] Monocytes/100 WBC (Bld) 5.6 % Normal 0-10 [facility] Comment on above: Performed By: #### L 100.0100, L3890.6301, L509.4006, L3890.6102, L509.8002, BTS, L3890.6006 #### [facility] [address] [place], [address] Neutrophils/100 WBC (Bld) 72.2 % High 47-70 [facility] Comment on above: Performed By: #### L 100.0100, L3890.6301, L509.4006, L3890.6102, L509.8002, BTS, L3890.6006 #### [facility] [address] [place], [address] Nucleated RBC (Bld) [#/Vol] 0 10*3/uL Normal 0-5 [facility] Comment on above: Performed By: #### L 100.0100, L3890.6301, L509.4006, L3890.6102, L509.8002, BTS, L3890.6006 #### [facility] [address] [place], [address] Platelet mean volume (Bld) [Entitic vol] 10.5 fL Normal 6.2-12.0 [facility] Comment on above: Performed By: #### L 100.0100, L3890.6301, L509.4006, L3890.6102, L509.8002, BTS, L3890.6006 #### [facility] [address] [place], [address] Platelets (Bld) [#/Vol] 223 10*3/uL Normal 150-450 [facility] Comment on above: Performed By: #### L 100.0100, L3890.6301, L509.4006, L3890.6102, L509.8002, BTS, L3890.6006 #### [facility] [address] [place], [address] RBC (Bld) [#/Vol] 4.23 10*6/uL Normal 4.2-5.4 [facility] Comment on above: Performed By: #### L 100.0100, L3890.6301, L509.4006, L3890.6102, L509.8002, BTS, L3890.6006 #### [facility] [address] [place], [address] RDW SD 43.2 fl Normal 35.1-43.9 [facility] Comment on above: Performed By: #### L 100.0100, L3890.6301, L509.4006, L3890.6102, L509.8002, BTS, L3890.6006 #### [facility] [address] [place], [address] WBC (Bld) [#/Vol] 11.6 10*3/uL High 4.4-11.0 [facility] Comment on above: Performed By: #### L 100.0100, L3890.6301, L509.4006, L3890.6102, L509.8002, BTS, L3890.6006 #### [facility] [address] [place], [address] Eosinophil percentageOrdered By: Bailee Perez on 11-25-2024 Eosinophils/100 WBC (Bld) 1.4 % 0-5 [facility] Erythrocyte distribution wid th ratioOrdered By: Bailee Perez on 11-25-2024 Erythrocyte distribution width (RBC) [Ratio] 13.2 % 11.6-14.6 [facility] Erythrocyte distribution wid th standard deviationOrdered By: Bailee Perez on 11-25-2024 Erythrocyte distribution width (RBC) [Ratio] 43.2 fl 35.1-43.9 [facility] HIVon 11-25-2024 HIV Non-Reactive Normal Nonreactive [facility] Comment on above: Result Comment: Non- Reactive Reactive Repeatedly reactive samples must be confirmed according to CDC recommended confirmatory algorithms. The subresults for either HIVAG or AHIV can be used as an aid in the selection of the confirmation algorithm for reactive samples. Send out specimens with Reactive results to [facility] for confirmation. Order the HIV antibody detection and differentiation: lc#[id number] Performed By: #### L 900.0098 #### [facility] [address] [place], [place], [id number] Hematocrit Auto (Bld) [Volum e fraction]Ordered By: Bailee Perez on 11-25-2024 Hematocrit (Bld) [Volume fraction] 38.4 % 37-47 [facility] Hemoglobin measurementOrdere d By: Bailee Perez on 11-25-2024 Hemoglobin (Bld) [Mass/Vol] 12.9 g/dL 12.0-15.0 [facility] Hepatitis C Antibodyon 11-25 Hepatitis C Ab Non-Reactive Normal Nonreactive [facility] Comment on above: Result Comment: Reac tive: Presumptive evidence of antibodies to HCV. Follow CDC recommendations for supplemental testing. Non-Reactive: Antibodies to HCV were not detected; does not exclude the possibility of exposure to HCV Reactive Results are presumptive evidence of antibodies to HCV. Follow CDC recommendations for supplemental testing. Order confirmation testing: HCV Quant by PCR testing - HCVPCR #[id number] Non Reactive: < 0.8 Equivocal: >/= 0.8 to < 1.0 Reactive: >/= 1.0 The CDC requires that a reactive/equivocal HCV antibody result be sent out for confirmation. HCV Quant by PCR testing. Performed By: #### L 900.0098 #### [facility] [address] [place], [place], [id number] Immature granulocytes/100 WB C Auto (Bld)Ordered By: Bailee Perez on 11-25-2024 Immature granulocytes/100 WBC (Bld) 0.300 % 0.0-0.9 [facility] Comment on above: IG% - Immature Granu locytes (promyelocytes, myelocytes and metamyelocytes) > 1% indicates that a LEFT SHIFT is Present. L3890.6102on 11-25-2024 HEP B Surf Ag Non-Reactive Normal Nonreactive [facility] Comment on above: Result Comment: Reac tive: Presumptive evidence of HBV. Repeatedly reactive samples must be confirmed using a neutralization test ([employer] HBsAg Confirmatory Test) Non-Reactive: HBsAg not detected; does not exclude the possibility of exposure to HBV Performed By: #### L 900.0098 #### [facility] [address] [place], [address] L509.4006on 11-25-2024 Rubella IgG REAC Normal Nonreactive [facility] Comment on above: Result Comment: Anti body Result: Interpretation Non-Reactive: Non-Immune Reactive: Immune The following results were obtained with the [employer] Rubella IgG assay. Results from assays of other manufacturers cannot be used interchangeably. Performed By: #### L 100.0100, L3890.6301, L509.4006, L3890.6102, L509.8002, BTS, L3890.6006 #### [facility] [address] [facility] [place], [place], [id number] Laboratory - Chemistry and C hemistry - challengeOrdered By: Sabina Johnston on 11-25-2024 Glucose Ql (U) Negative [facility] Laboratory - Microbiology an d Antimicrobial susceptibilityOrdered By: Bailee Perez on 11-25-2024 HBV surface Ag Ql (S) Non-Reactive Nonreactive [facility] Comment on above: Reactive: Presumptiv e evidence of HBV. Repeatedly reactive samples must be confirmed using a neutralization test ([employer] HBsAg Confirmatory Test)Non-Reactive: HBsAg not detected; does not exclude the possibility of exposure to HBV Laboratory - UrinalysisOrder ed By: Sabina Johnston on 11-25-2024 Protein Ql (U) Negative [facility] MCV (mean corpuscular volume ) determinationOrdered By: Bailee Perez on 11-25-2024 MCV (RBC) [Entitic vol] 90.8 fL 81-99 [facility] Mean corpuscular hemoglobin (MCH) determinationOrdered By: Bailee Perez on 11-25-2024 MCH (RBC) [Entitic mass] 30.5 pg 27.0-32.0 [facility] Mean corpuscular hemoglobin concentration (MCHC) determinationOrdered By: Bailee Perez on 11-25-2024 MCHC (RBC) [Mass/Vol] 33.6 g/dL 32-36 [facility] Mean platelet volume determi nationOrdered By: Bailee Cookedilia on 11-25-2024 Platelet mean volume (Bld) [Entitic vol] 10.5 fL 6.2-12.0 [facility] Monocyte percentageOrdered B y: Bailee Perez on 11-25-2024 Monocytes/100 WBC (Bld) 5.6 % 0-10 [facility] NATERAon 11-25-2024 NATURA SEE SCANNED REPORT Normal [facility] Comment on above: Performed By: #### L 900.0098 #### [facility] [address] [place], [address] Neutrophil percentageOrdered By: Bailee Perez on 11-25-2024 Neutrophils/100 WBC (Bld) 72.2 % High 47-70 [facility] No Panel InformationOrdered By: Bailee Perez on 11-25-2024 HIV (1&2) Antibody Non-Reactive Nonreactive [facility] Comment on above: Non-ReactiveReactive Repeatedly reactive samples must be confirmed according to CDC recommended confirmatory algorithms. The subresults for either HIVAG or AHIV can be used as an aid in the selection of the confirmation algorithm for reactive samples.Send out specimens with Reactive results to [facility] for confirmation.Order the HIV antibody detection and differentiation: [id number] Nucleated red blood cell per centageOrdered By: Bailee Perez on 11-25-2024 Nucleated RBC/100 WBC (Bld) [Ratio] 0 % 0-5 [facility] Rescue Worker Office Visit Reporton 11-25-2024 Rescue Worker Office Visit Report [facility] [address], [address] [place] [address] OFFICE VISIT Date of Service: 11/25/24 MR#: [id number] Acct: [id number] Name: BRAVO SULLIVAN Rep #: [id number] : 1995 Provider: Dr. Sabina De La Garza DO Age/Sex: 29/F Location: [facility] Status: Signed Intake Vital Signs 10/22/24 12:51 10/27/24 11:49 11/25/24 10:48 11/25/24 10:48 Height 5 ft 5 in 5 ft 5 in 5 ft 5 in 5 ft 5 in Weight: 170 lb 8 oz BMI 28.3 BP 103/64 Intake Visit Reasons: 11wk OB Shipping Point Inspector Required: No Is patient in pain?: No Allergies Penicillins Adverse Reaction (Verified 11/25/24 10:47) Vomiting Medications ???Medication ???Instructions ???Recorded ???Confirmed ???Type docosahexaenoic acid 200 mg mg PO 10/23/24 11/25/24 History capsule ( DHA) Last Menstrual Period: 09/07/24 Zika: Zika virus screening: Negative : No PFSH PFSH Surgical History Alger teeth removed Family History Mother Breast cancer Grandmother Multiple sclerosis Grandmother Ovarian cancer Social History adopted: No household members: spouse housing: house current occupational status: employed 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 Normal [facility] Platelet countOrdered By: Travis Perez on 11-25-2024 Platelets (Bld) [#/Vol] 223 10*3/uL 150-450 [facility] RBC Auto (Bld) [#/Vol]Ordere d By: Bailee Perez on 11-25-2024 RBC (Bld) [#/Vol] 4.23 10*6/uL 4.2-5.4 [facility] Syphilis Antibodieson 2024 Syphilis Abs Non-Reactive Normal Nonreactive [facility] Comment on above: Performed By: #### L 100.0100, L3890.6301, L509.4006, L3890.6102, L509.8002, BTS, L3890.6006 #### [facility] [address] [place], [address] Type AND Screenon 11-25-2024 Ab SCREEN GEL Negative Normal [facility] Comment on above: Order Comment: PN Performed By: #### L 100.0100, L3890.6301, L509.4006, L3890.6102, L509.8002, BTS, L3890.6006 #### [facility] [address] [place], [address] White blood cell (WBC) count Ordered By: Bailee Perez on 11-25-2024 WBC (Bld) [#/Vol] 11.6 10*3/uL High 4.4-11.0 [facility] Chlamydia/GC HIRO aptimaon CHLAMY,NUC ACID Negative Normal Negative [facility] Comment on above: Performed By: #### L 509.8002, L3890.6006, L100.0100, L501.0250 #### [facility] [address] [place], [address] GC BY NUC ACID Negative Normal Negative [facility] Comment on above: Result Comment: Perf ormed at: =G - [facility] [address] [id number] Terrazzo Grinder: Chandni Barry MD, Phone: [phone] Performed By: #### L 509.8002, L3890.6006, L100.0100, L501.0250 #### [facility] [address] [place], [address] Urine Cultureon 10-29-2024 [facility]RC Urine Culture Mixed Gram Positive Organisms Clio Count 50,000-80,000 MIXC Mixed contaminants. Submit a new specimen if indicated. Normal [facility] Comment on above: Performed By: #### L 509.8002, L3890.6006, L100.0100, L501.0250 #### [facility] [address] [place], [address] Chlamydia trachomatis rRNA d etection by probe and target amplification methodOrdered By: Bailee Perez on 10-27-2024 C. trachomatis rRNA HIRO+probe Ql (Unsp spec) Negative Negative [facility] Neisseria gonorrhoeae nuclei c acid detection by amplified probe techniqueOrdered By: Bailee Perez on 10-27-2024 N. gonorrhoeae DNA HIRO+probe Ql (Unsp spec) Negative Negative [facility] Comment on above: Performed at: =[address] [id number] Director: Chandni Barry MD, Phone: [phone] Rescue Worker Office Visit Reporton 10-27-2024 Rescue Worker Office Visit Report [facility] [address], [address] [place] [address] OFFICE VISIT Date of Service: 10/27/24 MR#: [id number] Acct: [id number] Name: BRAVO SULLIVAN Rep #: [id number] : 1995 Provider: Dr. Bailee banuelos MD Age/Sex: 29/F [place] [facility] [place] [facility] [place] Status: Signed Intake Vital Signs 04/02/24 08:58 10/12/24 12:00 10/23/24 09:02 10/27/24 11:49 Height 5 ft 5 in 5 ft 5 in 5 ft 5 in 5 ft 5 in Weight: 174 lb BMI 28.9 BP 115/75 Intake Visit Reasons: NOB LMP 4/7 per Shipping Point Inspector Required: No Is patient in pain?: No Allergies Penicillins Adverse Reaction (Verified 10/27/24 11:50) Vomiting Medications ???Medication ???Instructions ???Recorded ???Confirmed ???Type docosahexaenoic acid 200 mg mg PO 10/23/24 10/27/24 History capsule ( DHA) Last Menstrual Period: 09/07/24 Zika: Zika virus screening: Negative : No PFSH PFSH Surgical History Alger teeth removed Family History Mother Breast cancer Grandmother Multiple sclerosis Grandmother Ovarian cancer Social History adopted: No household members: spouse housing: house current occupational status: employed 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 Normal [facility] Urine cultureOrdered By: Kendrick Perez on 10-27-2024 Bacteria identified Cx Nom (U) Positive Abnormal [facility] Laboratory - Chemistry and C hemistry - challengeOrdered By: Bailee Perez on 10-23-2024 HCG ( test) Ql (U) Positive [facility] Office Visit Reporton 2024 Office Visit Report [facility] [address] [place] [address] OFFICE VISIT Date of Service: 10/23/24 MR#: [id number] Acct: [id number] Patient: BRAVO SULLIVAN Rep #: [id number] : 1995 Provider: Dr. Bailee banuelos MD Age/Sex: 29/F Location: [facility] [place] Status: Signed Intake Vital Signs 10/22/24 12:51 [...] past year?: No 10/29/24 2100 Date Bailee Mchugh Signature: Date (if applicable) CC: Normal [facility] Basophil percentageOrdered B y: Pola Martins on 07-21-2023 Basophil percentage 0 SEEN /hpf 0-5 [facility] Bilirubin Test strip Ql (U)O rdered By: Pola Martins on 07-21-2023 Bilirubin Ql (U) Negative Negative [facility] Ketones Test strip Ql (U)Ord ered By: Pola Martins on 07-21-2023 Ketones Ql (U) Negative Negative [facility] Mucus LM Ql (Urine sed)Order ed By: Pola Martins on 07-21-2023 Mucus Ql (Urine sed) 0 SEEN /hpf [facility] Nitrite Test strip Ql (U)Ord ered By: Pola Martins on 07-21-2023 Nitrite Ql (U) Negative Negative [facility] No Panel InformationOrdered By: Pola Martins on 07-21-2023 Troponin I High Sensitivity < 3 pg/mL 3.0-54.0 [facility] Comment on above: Please Note: New Chasidy t Units and Gender Specific Reference Ranges. For more information see Policy Stat Procedure [place] High Sensitivity Troponin (TNIH) and attachments. Urine RBC 0 SEEN /hpf 0-5 [facility] Protein Test strip Ql (U)Ord ered By: Pola Martins on 07-21-2023 Protein Ql (U) Negative Negative [facility] Squamous epithelial cells de tection in urine sediment by light microscopyOrdered By: Pola Martins on 07-21-2023 Epithelial cells.squamous LM Ql (Urine sed) 0-5 SEEN /hpf 5-10 [facility] Transitional cells detection in urine sediment by light microscopyOrdered By: Pola Martins on 07-21-2023 Transitional cells LM Ql (Urine sed) 0-5 SEEN /hpf 0-5 [facility] Urine blood detectionOrdered By: Pola Martins on 07-21-2023 RBC Ql (U) Negative Negative [facility] Urine clarityOrdered By: Debbie Martins on 07-21-2023 Clarity (U) Clear Clear [facility] Urine color determinationOrd ered By: Pola Martins on 07-21-2023 Color (U) Yellow Yellow [facility] Urine glucose detectionOrder ed By: Pola Martins on 07-21-2023 Glucose Ql (U) Negative Normal [facility] Urine leukocyte esterase det ection by dipstickOrdered By: Pola Martins on 07-21-2023 Leukocyte esterase Test strip Ql (U) 25 /ul Negative [facility] Urine pHOrdered By: Pola rivas on 07-21-2023 pH (U) 6.0 [pH] 5.0 - 8.0 [facility] Urine sediment bacteria coun t by microscopy (number/high power field)Ordered By: Pola Martins on 07-21-2023 Bacteria LM.HPF (Urine sed) [#/Area] 2 /[HPF] None Seen [facility] Urine specific gravity measu rementOrdered By: Pola Martins on 07-21-2023 Specific gravity (U) [Rel density] 1.025 1.002-1.030 [facility] Urine urobilinogen measureme ntOrdered By: Pola Martins on 07-21-2023 Urobilinogen Ql (U) Normal mg/dl Normal [facility] Absolute lymphocyte countOrd ered By: Pola Martins on 07-20-2023 Lymphocytes Auto (Unsp spec) [#/Vol] 4.16 10*3/uL 0.83-4.51 [facility] Automated lymphocyte count a s percentage of total leukocytesOrdered By: Pola Martins on 07-20-2023 Lymphocytes/100 WBC Auto (Unsp spec) 51.9 % 19-41 [facility] Basophil percentageOrdered B y: Pola Martins on 07-20-2023 Basophils/100 WBC (Bld) 0.5 % 0-1 [facility] Bilirubin [Mass/Vol] 0.20 mg/dL 0.20-1.00 [facility] Comment on above: For patients on eltr ombopag therapy, use of Dimension [place] TBIL is not recommended. Chloride [Moles/Vol] 113 mmol/L 98-107 [facility] Eosinophils/100 WBC (Bld) 4.2 % 0-5 [facility] Glucose [Mass/Vol] 96 mg/dL 74-106 [facility] Hemoglobin (Bld) [Mass/Vol] 12.0 g/dL 12.0-15.0 [facility] Monocytes/100 WBC (Bld) 7.4 % 0-10 [facility] Neutrophils (Bld) [#/Vol] 2.9 10*3/uL 2.0-7.7 [facility] Neutrophils/100 WBC (Bld) 35.9 % 47-70 [facility] Potassium [Moles/Vol] 3.9 mmol/L 3.5-5.1 [facility] Protein [Mass/Vol] 6.5 g/dL 6.4-8.2 [facility] Sodium [Moles/Vol] 141 mmol/L 136-145 [facility] WBC (Bld) [#/Vol] 8.0 10*3/uL 4.4-11.0 [facility] Determination of erythrocyte mean corpuscular volume (MCV)Ordered By: Pola Martins on 07-20-2023 MCV (RBC) [Entitic vol] 91.1 fL 81-99 [facility] Erythrocyte distribution wid th ratioOrdered By: Pola Martins on 07-20-2023 Erythrocyte distribution width (RBC) [Ratio] 13.4 % 11.6-14.6 [facility] Erythrocyte distribution wid th standard deviationOrdered By: Pola Martins on 07-20-2023 Erythrocyte distribution width (RBC) [Entitic vol] 45.1 fL 35.1-43.9 [facility] Hematocrit Auto (Bld) [Volum e fraction]Ordered By: Pola Martins on 07-20-2023 Hematocrit (Bld) [Volume fraction] 38.0 % 37-47 [facility] Immature granulocytes/100 WB C Auto (Bld)Ordered By: Pola Martins on 07-20-2023 Immature granulocytes/100 WBC (Bld) 0.100 % 0.0-0.9 [facility] Comment on above: IG% - Immature Granu locytes (promyelocytes, myelocytes and metamyelocytes) > 1% indicates that a LEFT SHIFT is Present. Laboratory - Chemistry and C hemistry - challengeOrdered By: Pola Martins on 07-20-2023 Albumin/Globulin [Mass ratio] 0.8 {ratio} 0.9-2.4 [facility] ALP [Catalytic activity/Vol] 45 U/L 45-117 [facility] ALT [Catalytic activity/Vol] 11 U/L 13-56 [facility] CO2 [Moles/Vol] 23.0 mmol/L 21.0-32.0 [facility] Globulin (S) [Mass/Vol] 3.7 g/dL 2.2-4.2 [facility] Lipase [Catalytic activity/Vol] 28 U/L 13-75 [facility] Comment on above: Please note:LIPASE r evised reference range effective 22. New Lipase methodology. Expected to produce lower values than the previous assay method. NEW Reference Range: 13 - 75 U/L Urea nitrogen/Creatinine [Mass ratio] 13.3 mg/mg 10-20 [facility] Laboratory - Hematology and Cell countsOrdered By: Pola Martins on 07-20-2023 MCH (RBC) [Entitic mass] 28.8 pg 27.0-32.0 [facility] MCHC (RBC) [Mass/Vol] 31.6 g/dL 32-36 [facility] Nucleated RBC/100 WBC (Bld) [Ratio] 0 % 0-5 [facility] Platelet mean volume (Bld) [Entitic vol] 10.5 fL 6.2-12.0 [facility] Platelets (Bld) [#/Vol] 241 10*3/uL 150-450 [facility] No Panel InformationOrdered By: Pola Martins on 07-20-2023 Estimated Creatinine Clearance Calc 97.27 ml/min [facility] Estimated GFR (MDRD) Amer 96 mL/min >60 [facility] Comment on above: GFR Calc Estimated GFR (MDRD) Non-Af Amer 80 mL/min >60 [facility] Comment on above: Non- GFR Calc RBC Auto (Bld) [#/Vol]Ordere d By: Pola Martins on 07-20-2023 RBC (Bld) [#/Vol] 4.17 10*6/uL 4.2-5.4 [facility] Serum or plasma calcium angela urement (mass/volume)Ordered By: Pola Martins on 07-20-2023 Calcium [Mass/Vol] 8.9 mg/dL 8.5-10.1 [facility] Serum or plasma creatinine m easurement (mass/volume)Ordered By: Pola Martins on 07-20-2023 Creatinine [Mass/Vol] 0.90 mg/dL 0.55-1.02 [facility] Comment on above: The validity of the calculated GFR & GFRAA in patients over 70 years has not been determined. Clinical correlation is essential. Serum or plasma urea nitroge n measurement (mass/volume)Ordered By: Pola Martins on 07-20-2023 Urea nitrogen [Mass/Vol] 12 mg/dL 7-18 [facility] Thin prep Papanicolaou smear with manual screeningOrdered By: Pola Martins on 07-20-2023 Thin prep Papanicolaou smear with manual screening 2.8 g/dL 3.2-5.0 [facility] Thin prep Papanicolaou smear with manual screening 8 U/L 15-37 [facility] Thin prep Papanicolaou smear with manual screening 5 5-15 [facility] Vital Signs Date Time Vital Sign Value Performing Clinician Faci lity 03-16-2025 15:30-0400 Body height 165.[address] Chad Bain MD Work Phone: [facility] 03-16-2025 15:30-0400 Body mass index (BMI) [Ratio] 28.8 kg/m2 Dr. Chad Bain MD Work Phone: [facility] 03-16-2025 15:30-0400 Body weight 78.[address] Chad Bain MD Work Phone: [facility] 03-16-2025 15:30-0400 Diastolic blood pressure 75 mm[Hg] Dr. Chad Bain MD Work Phone: [facility] 03-16-2025 15:30-0400 Systolic blood pressure 111 mm[Hg] Dr. Chad Bain MD Work Phone: [facility] 02-16-2025 15:14-0400 Body height 165.[address] Chad Bain MD Work Phone: [facility] 02-16-2025 15:13-0400 Body mass index (BMI) [Ratio] 28.7 kg/m2 Dr. Chad Bain MD Work Phone: [facility] 02-16-2025 15:13-0400 Body weight 78.[address] Chad Bain MD Work Phone: [facility] 02-16-2025 15:13-0400 Diastolic blood pressure 72 mm[Hg] Dr. Chad Bain MD Work Phone: 9(278)025-017299 [place] [address] 02-16-2025 15:13-0400 Systolic blood pressure 107 mm[Hg] Dr. Chad Bain MD Work Phone: 5(373)469-256823 [address] 01-20-2025 15:41-0400 Body height 165.[address] Chad Bain MD Work Phone: 2(235)694-574514 [place] [address] 01-20-2025 15:41-0400 Body mass index (BMI) [Ratio] 28.6 kg/m2 Dr. Chad Bain MD Work Phone: 1(633)497-262714 [place] [address] 01-20-2025 15:41-0400 Body weight 78.[address] Chad Bain MD Work Phone: 9(897)844-595114 [place] [address] 01-20-2025 15:41-0400 Diastolic blood pressure 69 mm[Hg] Dr. Chad Bain MD Work Phone: 7(274)712-282814 [place] [address] 01-20-2025 15:41-0400 Systolic blood pressure 108 mm[Hg] Dr. Chad Bain MD Work Phone: 8(837)652-142214 [place] [address] 01-13-2025 13:25-0400 Body height 165.[address] Chad Bain MD Work Phone: 4(330)786-791414 [place] [address] 01-13-2025 13:24-0400 Body mass index (BMI) [Ratio] 27.8 kg/m2 Dr. Chad Bain MD Work Phone: 3(619)118-977614 [place] [address] 01-13-2025 13:24-0400 Body weight 75.[address] Chad Bain MD Work Phone: 0(640)195-592114 [place] [address] 01-13-2025 13:24-0400 Diastolic blood pressure 76 mm[Hg] Dr. Chad Bain MD Work Phone: 8(616)714-821314 [place] [address] 01-13-2025 13:24-0400 Systolic blood pressure 110 mm[Hg] Dr. Chad Bain MD Work Phone: 6(069)663-498414 [place] [address] 12-25-2024 15:28-0400 Body height 165.[address] Chad Bain MD Work Phone: 7(861)108-331014 [place] [address] 12-25-2024 15:28-0400 Body mass index (BMI) [Ratio] 28.1 kg/m2 Dr. Chad Bain MD Work Phone: 5(108)186-431114 [place] [address] 12-25-2024 15:28-0400 Body weight 76.[address] Chad Bain MD Work Phone: 6(373)787-645514 [place] [address] 12-25-2024 15:28-0400 Diastolic blood pressure 76 mm[Hg] Dr. Chad Bain MD Work Phone: 2(722)213-713614 [place] [address] 12-25-2024 15:28-0400 Systolic blood pressure 116 mm[Hg] Dr. Chad Bain MD Work Phone: 3(247)681-156114 [place] [address] 11-25-2024 10:48-0400 Body height 165.[address] Chad Bain MD Work Phone: 4(912)161-840014 [place] [address] 11-25-2024 10:48-0400 Body mass index (BMI) [Ratio] 28.3 kg/m2 Dr. Chad Bain MD Work Phone: 9(161)601-015714 [place] [address] 11-25-2024 10:48-0400 Body weight 77.[address] Chad Bain MD Work Phone: 9(149)122-689614 [place] [address] 11-25-2024 10:48-0400 Diastolic blood pressure 64 mm[Hg] Dr. Chad Bain MD Work Phone: 7(413)549-560214 [place] [address] 11-25-2024 10:48-0400 Systolic blood pressure 103 mm[Hg] Dr. Chad Bain MD Work Phone: 6(003)502-667114 [place] [address] 10-27-2024 11:49-0400 Body height 165.[address] Chad Bain MD Work Phone: 1(490)820-311614 [place] [address] 10-27-2024 11:49-0400 Body mass index (BMI) [Ratio] 28.9 kg/m2 Dr. Chad Bain MD Work Phone: [facility] 10-27-2024 11:49-0400 Body weight 78.[address] Chad Bain MD Work Phone: [facility] 10-27-2024 11:49-0400 Diastolic blood pressure 75 mm[Hg] Dr. Chad Bain MD Work Phone: [facility] 10-27-2024 11:49-0400 Systolic blood pressure 115 mm[Hg] Dr. Chad Bain MD Work Phone: [facility] 10-23-2024 09:02-0400 Body mass index (BMI) [Ratio] 28.8 kg/m2 Dr. Chad Bain MD Work Phone: [facility] 10-23-2024 09:02-0400 Body weight 78.[address] Chad Bain MD Work Phone: [facility] 10-23-2024 09:02-0400 Diastolic blood pressure 68 mm[Hg] Dr. Chad Bain MD Work Phone: [facility] 10-23-2024 09:02-0400 Systolic blood pressure 118 mm[Hg] Dr. Chad Bain MD Work Phone: [facility] 07-21-2023 02:57-0500 Body temperature 97 [degF] [facility] 07-21-2023 02:57-0500 Diastolic blood pressure 63 mm[Hg] [facility] 07-21-2023 02:57-0500 Heart rate 68 /min [facility] 07-21-2023 02:57-0500 Respiratory rate 17 /min [facility] 07-21-2023 02:57-0500 SaO2% (BldA) [Mass fraction] 99 % [facility] 07-21-2023 02:57-0500 Systolic blood pressure 106 mm[Hg] [facility] 07-20-2023 22:49-0500 Body height 165.1 cm [facility] 07-20-2023 22:49-0500 Body mass index (BMI) [Ratio] 28.3 kg/m2 [facility] 07-20-2023 22:49-0500 Body weight 77.11 kg [facility] 01-26-2022 00:16-0400 Diastolic blood pressure 72 mm[Hg] [facility] Work Phone: 01-26-2022 00:16-0400 Heart rate 76 /min [facility] Work Phone: 01-26-2022 00:16-0400 Respiratory rate 16 /min [facility] Work Phone: 01-26-2022 00:16-0400 SaO2% (BldA) [Mass fraction] 98 % [facility] Work Phone: 01-26-2022 00:16-0400 Systolic blood pressure 92 mm[Hg] [facility] Work Phone: 01-25-2022 21:49-0400 Body height 165.1 cm [facility] Work Phone: 01-25-2022 21:49-0400 Body mass index (BMI) [Ratio] 25 kg/m2 [facility] Work Phone: 01-25-2022 21:49-0400 Body temperature 98.9 [degF] [facility] Work Phone: 01-25-2022 21:49-0400 Body weight 68.03 kg [facility] Work Phone: Encounters Encounter Date Encounter Type Care Provider Facility Start: 04-08-2025 End: 04-08-2025 ambulatory Chad Bain [place] [place]: 03-16-2025 End: 03-16-2025 Patient encounter procedure Dr. Bailee Perez MD -[facility] Work Phone: Start: 03-16-2025 End: 03-16-[address] Chad Bain MD Work Phone: -[facility] Start: 03-16-2025 End: 03-16-2025 ambulatory Chad Bain Facility:[facility] Start: 02-16-2025 End: 02-16-2025 Patient encounter procedure Kenyatta Colbert [facility] -[facility] Work Phone: Start: 02-16-2025 End: 02-16-[address] Chad Bain MD Work Phone: [facility] Start: 02-03-2025 End: 02-03-[address] Chad Bain MD Work Phone: -Ultrasound [facility] Start: 02-03-2025 End: 02-03-2025 Patient encounter procedure Romelia Whitfieldtings [facility] -[facility]ound [facility] Work Phone: Start: 02-03-2025 End: 02-03-2025 ambulatory Chad Bain Facility:[facility] Start: 01-20-2025 End: 01-20-2025 Patient encounter procedure Romelia Ирина [facility] -[facility] Work Phone: Start: 01-20-2025 End: 01-20-[address] Chad Bain MD Work Phone: [facility] Start: 01-13-2025 End: 01-13-[address] Sabina Paredes DO -[facility] Work Phone: Start: 01-13-2025 End: 01-13-[address] Chad Bain MD Work Phone: [facility] Start: 01-13-2025 End: 01-13-2025 ambulatory Chad Bain Facility:[facility] Start: 12-25-2024 End: 12-25-2024 Patient encounter procedure Kristen Rios [facility] -[facility] Work Phone: Start: 12-25-2024 End: 12-25-[address] Chad Bain MD Work Phone: [facility] Start: 11-25-2024 End: 11-25-[address] Sabina Paredes DO -[facility] Work Phone: Start: 11-25-2024 End: 11-25-[address] Chad Bain MD Work Phone: [facility] Work Phone: Start: 11-25-2024 End: 11-25-2024 ambulatory Sabina Paredes Facility:[facility] Start: 10-27-2024 End: 10-27-[address] Chad Bain MD Work Phone: [facility] Work Phone: Start: 10-27-2024 End: 10-27-[address] Bailee Perez MD -Laboratory Specimen Work Phone: Start: 10-27-2024 End: 10-27-[address] Bailee Perez MD -[facility] Work Phone: Start: 10-27-2024 End: 10-27-[address] Chad Bain MD Work Phone: [facility] Work Phone: Start: 10-27-2024 End: 10-27-2024 ambulatory Bailee Perez Facility:[facility] Start: 10-23-2024 End: 10-23-[address] Bailee Perez MD -[facility] Work Phone: Start: 10-23-2024 End: 10-23-2024 ambulatory Chad Bain Facility:[facility] Start: 05-12-2024 ambulatory Chad Bain Facilit y:[facility] Start: 07-20-2023 End: 07-21-2023 Emergency department patient visit [facility]-Emergency Department Work Phone: Start: 01-25-2022 End: 01-26-2022 Emergency department patient visit [facility]Emergency [facility] Procedures Date Procedure Procedure Detail Performing Clinician Start: 03-16-2025 Serologic test for syphilis Dr. Chad Bain MD Work Phone: Start: 02-03-2025 Ultrasonography in f irst trimester Dr. Chad Bain MD Work Phone: Start: 01-13-2025 Measurement of pH in vaginal fluid specimen using nitrazine yellow for detection of rupture of amniotic membrane Dr. Chad Bain MD Work Phone: Comment on above: Amniotic fluid not p resent indicates No Rupture of FetalMembranes at time of specimen collection. Start: 11-25-2024 Hepatitis C antibody measurement Dr. [...] HCV Quant by PCR testing - HCVPCR #[id number] Non Reactive: < 0.8 Equivocal: >/= 0.8 [...] Treatment Date Care Activity Detail Author Start: 02-16-2025 Measurement of gluco se 2 hours after glucose challenge for glucose tolerance test [facility] Start: 02-16-2025 Serologic test for syphilis [facility] Start: 02-16-2025 [facility] Start: 11-25-2024 CBC W Auto Different ial panel - Blood [facility] Start: 11-25-2024 Hepatitis C antibody measurement [facility] Start: 11-25-2024 Rubella IgG measurement [facility] Start: 11-25-2024 Serologic test for syphilis [facility] Start: 11-25-2024 [facility] Start: 11-25-2024 End: 11-25-2024 Procedure [facility] Start: 07-21-2023 [facility] CBC W Auto Different ial panel - Blood [facility] CBC W Auto Different ial panel - Blood [facility] Chlamydia deoxyribon ucleic acid detection [facility] Erythrocyte mean cor puscular volume determination [facility] Hematocrit [Volume F raction] of Blood [facility] Hemoglobin [Mass/volume] in Blood [facility] Hepatitis B virus ernst rface Ag [Presence] in Serum [facility] Hepatitis C antibody measurement [facility] Leukocytes [#/volume] in Blood [facility] Mean corpuscular hem oglobin concentration determination [facility] Mean corpuscular hem oglobin determination [facility] Neutrophil count [facility] Neutrophil percent d ifferential count [facility] Patient Education [facility] Work Phone: Patient referral [facility] Work Phone: Platelets [#/volume] in Blood [facility] Red blood cell count [facility] Red cell distributio n width determination [facility] Rubella IgG measurement [facility] Serologic test for syphilis [facility] Ultrasonography in first trimester [facility] Immunizations Immunization Date Immunization Notes Care Provider Fa joselo 03-16-2025 Seasonal trivalent influenza vaccine, adjuvanted, preservative free Dr. Chad Bain MD Work Phone: [facility] Payers Date Payer Category Payer Self-pay 2024 Unknown [id number] Unknown [facility] [id number] Unknown [id number] 2.16.8 [id number] Unknown [id number] 2.16.8 [id number] Unknown [id number] 2.16.8 [id number] Unknown [id number] 2.16.8 [id number] Unknown [id number] 2.16.8 [id number] Unknown [id number] 2.16.8 [id number] Unknown [id number] 2.16.8 [id number] Unknown [id number] 2.16.8 [id number] Unknown [id number] 2.16.8 [id number] Unknown [id number] 2.16.8 [id number] Unknown [id number] 2.16.8 [id number] Unknown [id number] 2.16.8 [id number] Unknown [id number] 2.16.8 [id number] Unknown [id number] 2.16.8 [id number] Unknown [id number] 2.16.8 [id number] Social History Date Type Detail Facility Start: 01-25-2022 End: 07-20-2023 Tobacco smoking status NHIS Unknown if ever smoked [facility] Start: 1995 Sex Assigned At Female [facility] Start: 10-23-2024 Tobacco smoking status NHIS Never smoked tobacco (finding) [facility] Sex Female [facility] NEGATED: Highlighted row [facility] Work Phone: Mental Status Date Assessment Result Facility 07-20-2023 Cognitive function Voice/Name [facility] Work Phone: Clinical Notes 10-23-2024 to 03-16-2025 Note Date & Type Note Facility 03-16-2025 Progress note [facility] 03-16-2025 Progress note Note Date/Time March 16, 2025 4:20pm [facility] [address], [address] [place] [address] OFFICE VISIT Date of Service: 03/16/25 MR#: [id number] Acct: [id number] Name: BRAVO SULLIVAN Rep #: [id number] : 1995 Provider: Dr. 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 Required: No Is patient in pain?: No Allergies Penicillins Adverse Reaction (Verified 03/16/25 15:30) Vomiting Medications ?Medication ?Instructions ?Recorded ?Confirmed ?Type docosahexaenoic acid 200 mg mg PO 10/23/24 03/16/25 Hi story capsule ( DHA) Last Menstrual Period: 09/07/24 Zika: Zika virus screening: Negative : No PFSH PFSH Surgical History Alger teeth removed Family History Mother Breast cancer Grandmother Multiple sclerosis Grandmother Ovarian cancer Social History adopted: No household members: spouse housing: house current occupational status: employed 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 OB Visit ANN Calculator Estimated Delivery Date Method Current WG Current Estimate 06/14/25 LMP (Certain) 27w 1d Other Estimates 06/15/25 Ultrasound #1 27w 0d Expected Delivery Route/Plan Labor Preferences- CB/BF classes: [] labor support person: [] labor intervention preferences: [] pain management options preferred: [] cut cord/dad catch: [] : [] PP control planned: [] discussed possible routes of delivery and associated risks: [] special requests: [] Specific Issue/Plans Covid status: [] Flu vaccine: given Tdap vaccine: [] Rhogam: [] LARC form signed: [] movement and labor precautions reviewed. Problem list reviewed and updated with the most current plan of care details and appropriate orders placed. Relevant counseling for the gestational age provided. Continue routine care and follow up unless otherwise noted in visit notes/problem list details Initial Weight: 170 lb Date -?-?-?-?-?-?-?-?-?-?-?-?- EGA Weight BP Urine Prot -?-?-?-?-?-?-?-?-?-?-?-?- Glucose FHR FuHt Pres Dilation -?-?-?-?-?-?-?-?-?-?-?-?- Effaced St Visit Note 10/27/24 -?-?-?-?-?-?-?-?-?-?-?-?- 7w 1d 174 lb (+4 lb) 115/75 -?-?-?-?-?-?-?-?-?-?-?-?- 170 -?-?-?-?-?-?-?-?-?-?-?-?- SM- CRL cons wit h LMP 11/25/24 -?-?-?-?-?-?-?-?-?-?-?-?- 11w 2d 170 lb 8 oz (+8 oz) 103/64 Negative -?-?-?-?-?-?-?-?-?-?-?-?- Negative 165 -?-?-?-?-?-?-?-?-?-?-?-?- JV- CRL measurin g 11 weeks 5 days. nipt today. 12/25/24 -?-?-?-?-?-?-?-?-?-?-?-?- 15w 4d 169 lb (-16 oz) 116/76 Negative -?-?-?-?-?-?-?-?-?-?-?-?- Negative 155 -?-?-?-?-?-?-?-?-?-?-?-?- LC- no vb/crampi ng. declines afp 01/13/25 -?-?-?-?-?-?-?-?-?-?-?-?- 18w 2d 167 lb 7 oz (-2 lb 9 oz) 110/76 Negative -?-?-?-?-?-?-?-?-?-?-?-?- Negative 146 -?-?-?-?-?-?-?-?-?-?-?-?- JV-patient is be ing seen urgently for leaking fluid and cramping. On exam there is no pooling. Ultrasound shows a MVP of 4.66 cm and lots of fluid around the baby. rom plus collected and sent stat. 01/20/25 -?-?-?-?-?-?-?-?-?-?-?-?- 19w 2d 172 lb 1 oz (+2 lb 1 oz) 108/69 Negative -?-?-?-?-?-?-?-?-?-?-?-?- Negative 152 -?-?-?-?-?-?-?-?-?-?-?-?- MH-No VB, LOF. G ood FM. Resent order for anatomy [facility]. 02/16/25 -?-?-?-?-?-?-?-?-?-?-?-?- 23w 1d 172 lb 7 oz (+2 lb 7 oz) 107/72 Negative -?-?-?-?-?-?-?-?-?-?-?-?- Negative 150 24 -?-?-?-?-?-?-?-?-?-?-?-?- KW- no vb/lof/ct x. good fm. reviewed US. glucose next visit. CBE classes discussed. 03/16/25 -?-?-?-?-?-?-?-?-?-?-?-?- 27w 1d 173 lb 5 oz (+3 lb 5 oz) 111/75 Negative -?-?-?-?-?-?-?-?-?-?-?-?- Negative 140 27 -?-?-?-?-?-?-?-?--?-?-?-?- SM- no vb lof go od fm no regular ctx ACOG First Trimester First Trimester: Desire for [...] Office Urine Glucose Negative Last Edit by Romelia Jimenez on 03/16/25 15:51 Office Urine Protein Negative Last Edit by Romelia Jimenez on 03/16/25 15:51 Immunizations Fluad 2024- 65yr up(PF)45 mcg(15 mcgx3)/0.5 mL intramuscular syringe Performing Provider: Bailee Perez MD Performing Location: [facility] Administered by: Romelia Jimenez on 03/16/25 15:40 Dose Route Admin Location Dispensed Lot Number Expiration Date Pack age NDC NDC [employer] Operator 0.5 mL IM Left Deltoid 0.5 mL [id number] 10/10/25 [id number] [employer]STEUR VIS Given Date VIS Provided VIS Publication Date 03/16/25 Single Vaccine 24 Eligibility Eligibility Date Funding Source Not Applicable Coding Level of Care Code OB Routine Diagnoses Encounter for supervision of normal first in second trimester Z34.02 Normal : normal first Trimester: second trimester 27 weeks gestation of Z3A.27 Weeks of gestation: 27 weeks Assessment and Plan Assessment and Plan (1) Supervision of normal : Status: Acute Qualifiers: Normal : normal first Trimester: second trimester Qualified Code(s): Z34.02 - Encounter for supervision of normal first , second trimester Comment: [id number] ANN 06/14/25, eliseo Wilkinson : Mickey (2) : Status: Acute Qualifiers: Weeks of gestation: 27 weeks Qualified Code(s): Z3A.27 - 27 weeks gestation of Comment: Discussed genetic/carrier testing, NIPT low risk, male, normal anatomy Orders: Orders POC Urinalysis 2 Dip (Clinic) Today Influenza Immunization Today Z23 - Encounter for immunization 03/16/25 1620 <Electronically signed by Bailee casarez MD> Date _ Bailee Perez MD Cosigner Signature: Date (if applicable) CC: ~ [facility] Work Phone: 1(987) 932-778309-16-2025 Progress [facility] [address], [address] [place] [address] OFFICE VISIT Date of Service: 02/16/25 MR#: [id number] Acct: [id number] Name: BRAVO SULLIVAN Rep #: [id number] : 1995 Provider: DAMASO Colbert Age/Sex: 30/F Location: [facility] Status: Signed Intake Vital Signs 11/25/24 10:48 01/20/25 15:41 02/16/25 15:13 02/16/25 15:14 Height 5 ft 5 in 5 ft 5 in 5 ft 5 in 5 ft 5 in Weight: 172 lb 7 oz BMI 28.7 BP 107/72 Intake Visit Reasons: 23wk ob Chief Complaint: 23 wk OB Shipping Point Inspector Required: No Is patient in pain?: No Allergies Penicillins Adverse Reaction (Verified 02/16/25 15:12) Vomiting Medications ?Medication ?Instructions ?Recorded ?Confirmed ?Type docosahexaenoic acid 200 mg mg PO 10/23/24 02/16/25 Hi story capsule ( DHA) Last Menstrual Period: 09/07/24 : No PFSH PFSH Surgical History Alger teeth removed Family History Mother Breast cancer Grandmother Multiple sclerosis Grandmother Ovarian cancer Social History adopted: No household members: spouse housing: house current occupational status: employed 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 OB Visit ANN Calculator Estimated Delivery Date Method Current WG Current Estimate 06/14/25 LMP (Certain) 23w 1d Other Estimates 06/15/25 Ultrasound #1 23w 0d Expected Delivery Route/Plan Labor Preferences- CB/BF classes: [...] current plan of care details and appropriate ordersplaced. Relevant counseling for the gestational age provided. Continue routine care and follow up unless otherwise noted in visit notes/problem list details Initial Weight: Not Recorded Date -?-?-?-?-?-?-?-?-?-?-?-?- EGA Weight BP Urine Prot -?-?-?-?-?-?-?-?-?-?-?-?- Glucose FHR FuHt Pres Dilation -?-?-?-?-?-?-?-?-?-?-?-?- Effaced St Visit Note 10/27/24 -?-?-?-?-?-?-?-?-?-?-?-?- 7w 1d 174 lb 115/75 -?-?-?-?-?-?-?-?-?-?-?-?- 170 -?-?-?-?-?-?-?-?-?-?--?-?- SM- CRL cons wit h LMP 11/25/24 [...] baby. rom plus collected and sent stat. 01/20/25 -?-?-?-?-?-?-?-?-?-?-?-?- 19w 2d 172 lb 1 oz 108/69 Nega tive -?-?-?-?-?-?-?-?-?-?-?-?- Negative 152 -?-?-?-?-?-?-?-?-?-?-?-?- MH-No VB, LOF. G ood FM. Resent order for anatomy [facility]. 02/16/25 -?-?-?-?-?-?-?-?-?-?-?-?- 23w 1d 172 lb 7 oz 107/72 Nega tive -?-?-?-?-?-?-?-?-?-?-?-?- Negative 150 24 -?-?-?-?-?-?--?-?-?-?-?-?- KW- no vb/lof/ct x. good fm. reviewed US. glucose next visit. CBE classes discussed. ACOG First Trimester First Trimester: Desire for [...] and no additional complaints, except as documented Eyes Reports system reviewed and no additional complaints, except as documented ENT Reports system reviewed and no additional complaints, except as documented Card Reports system reviewed and no additional complaints, except as documented Resp Reports system reviewed and no additional complaints, except as documented GI Reports system reviewed and no additional complaints, except as documented, Denies nausea and Denies vomiting Reports system reviewed and no additional complaints, except as documented Musc Reports system reviewed and no additional complaints, except as documented Skin/Breast Reports system reviewed and no additional complaints, except as documented Neuro Yes system reviewed and no additional complaints, except as documented Psych Reports system reviewed and no additional complaints, except as documented Endo Reports system reviewed and no additional complaints, except as documented Rodriguez/Lymph Reports system reviewed and no additional complaints, except as documented Aller/Immun Reports system reviewed and no additional complaints, except as documented Exam Const General: cooperative, healthy appearing and no acute distress Orientation: alert, awake and oriented x3 Neck Neck: normal visual inspection and full ROM Resp Effort & Inspection: normal respiratory effort, able to speak in complete sentences and symmetric chest movement GI Inspection: normal to inspection Palpation: soft and other Other: gravid Skin General: no rashes or lesions noted Neuro General: patient alert, patient awake and patient oriented x3 Cognition: normal cognition Speech: speech normal Gait: normal gait Motor: muscle tone normal throughout Extrem General: normal to inspection and full ROM Psych Appearance: grossly normal Mental Status: mental status grossly normal Mood: congruent mood Affect: normal affect Speech and Movement: speech and movement normal Attitude: cooperative Thought Process: normal Thought Content: normal Judgment: judgment good Results POC Urinalysis 2 Dip (Clinic) Office Urine Glucose Negative Last Edit by Luz Maria Pope on 02/16/25 15:18 Office Urine Protein Negative Last Edit by Luz Maria Pope on 02/16/25 15:18 Coding Level of Care Code OB Routine Diagnoses Encounter for supervision of normal first in second trimester Z34.02 Normal : normal first Trimester: second trimester 23 weeks gestation of Z3A.23 Weeks of gestation: 23 weeks Assessment and Plan Assessment and Plan (1) Supervision of normal : Status: Acute Qualifiers: Normal : normal first Trimester: second trimester Qualified Code(s): Z34.02 - Encounter for supervision of normal first , second trimester Comment: [id number] ANN 06/14/25, : Mickey (2) : Status: Acute Qualifiers: Weeks of gestation: 23 weeks Qualified Code(s): Z3A.23 - 23 weeks gestation of Comment: Discussed genetic/carrier testing, NIPT low risk, male, normal anatomy Orders: Orders POC Urinalysis 2 Dip (Clinic) Today Z34.02 - Encounter for supervision of normal first , second trimester, Z3A.23 - 23 weeks gestation of CBC W/Diff, Automated Today Z34.02 - Encounter for supervision of normal first , second trimester, Z3A.23 - 23 weeks gestation of Glucose Challenge Gest 1H 50g Today Z13.1 - Encounter for screening for diabetes mellitus, Z34.02 -Encounter for supervision of normal first , second trimester, Z3A.23 - 23 weeks gestation of HIV Today Z34.02 - Encounter for supervision of normal first , second trimester, Z3A.23 - 23 weeks gestation of Syphilis Antibodies Today Z34.02 - Encounter for supervision of normal first , second trimester, Z3A.23 - 23 weeks gestation of Plan Details Additional Comments: ACOG trimester education reviewed and updated. see problem list details for updated plan management information and see below for orders placed atthis visit. GA appropriate handout given. 02/16/25 1547 s CNM> Date _ Kenyatta Colbert CNM Cosigner Signature: Date (if applicable) CC: ~ [facility]09-16-2025 Progress note Author Kenyatta Colbert [facility] Note Date/Time February 16, 2025 3:47pm [facility] [address] [place] [address], [address] [place] [address] OFFICE VISIT Date of Service: 02/16/25 MR#: [id number] Acct: [id number] Name: BRAVO SULLIVAN Rep #: [id number] : 1995 Provider: DAMASO Colbert Age/Sex: 30/F Location: [facility] Status: Signed Intake Vital Signs 11/25/24 10:48 01/20/25 15:41 02/16/25 15:13 02/16/25 15:14 Height 5 ft 5 in 5 ft 5 in 5 ft 5 in 5 ft 5 in Weight: 172 lb 7 oz BMI 28.7 BP 107/72 Intake Visit Reasons: 23wk ob Chief Complaint: 23 wk OB Shipping Point Inspector Required: No Is patient in pain?: No Allergies Penicillins Adverse Reaction (Verified 02/16/25 15:12) Vomiting Medications ?Medication ?Instructions ?Recorded ?Confirmed ?Type docosahexaenoic acid 200 mg mg PO 10/23/24 02/16/25 Hi story capsule ( DHA) Last Menstrual Period: 09/07/24 : No PFSH PFSH Surgical History Alger teeth removed Family History Mother Breast cancer Grandmother Multiple sclerosis Grandmother Ovarian cancer Social History adopted: No household members: spouse housing: house current occupational status: employed 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 OB Visit ANN Calculator Estimated Delivery Date Method Current WG Current Estimate 06/14/25 LMP (Certain) 23w 1d Other Estimates 06/15/25 Ultrasound #1 23w 0d Expected Delivery Route/Plan Labor Preferences- CB/BF classes: [...] 7w 1d 174 lb 115/75 -?-?-?-?-?-?-?-?-?-?-?-?- 170 -?-?-?-?-?-?-?-?-?-?--?-?- SM- CRL cons wit h LMP 11/25/24 [...] baby. rom plus collected and sent stat. 01/20/25 -?-?-?-?-?-?-?-?-?-?-?-?- 19w 2d 172 lb 1 oz 108/69 Nega tive -?-?-?-?-?-?-?-?-?-?-?-?- Negative 152 -?-?-?-?-?-?-?-?-?-?-?-?- MH-No VB, LOF. G ood FM. Resent order for anatomy [facility]. 02/16/25 -?-?-?-?-?-?-?-?-?-?-?-?- 23w 1d 172 lb 7 oz 107/72 Nega tive -?-?-?-?-?-?-?-?-?-?-?-?- Negative 150 24 -?-?-?-?-?-?--?-?-?-?-?-?- KW- no vb/lof/ct x. good fm. reviewed US. glucose next visit. CBE classes discussed. ACOG First Trimester First Trimester: Desire for [...] and no additional complaints, except as documented Eyes Reports system reviewed and no additional complaints, except as documented ENT Reports system reviewed and no additional complaints, except as documented Card Reports system reviewed and no additional complaints, except as documented Resp Reports system reviewed and no additional complaints, except as documented GI Reports system reviewed and no additional complaints, except as documented, Denies nausea and Denies vomiting Reports system reviewed and no additional complaints, except as documented Musc Reports system reviewed and no additional complaints, except as documented Skin/Breast Reports system reviewed and no additional complaints, except as documented Neuro Yes system reviewed and no additional complaints, except as documented Psych Reports system reviewed and no additional complaints, except as documented Endo Reports system reviewed and no additional complaints, except as documented Rodriguez/Lymph Reports system reviewed and no additional complaints, except as documented Aller/Immun Reports system reviewed and no additional complaints, except as documented Exam Const General: cooperative, healthy appearing and no acute distress Orientation: alert, awake and oriented x3 Neck Neck: normal visual inspection and full ROM Resp Effort & Inspection: normal respiratory effort, able to speak in complete sentences and symmetric chest movement GI Inspection: normal to inspection Palpation: soft and other Other: gravid Skin General: no rashes or lesions noted Neuro General: patient alert, patient awake and patient oriented x3 Cognition: normal cognition Speech: speech normal Gait: normal gait Motor: muscle tone normal throughout Extrem General: normal to inspection and full ROM Psych Appearance: grossly normal Mental Status: mental status grossly normal Mood: congruent mood Affect: normal affect Speech and Movement: speech and movement normal Attitude: cooperative Thought Process: normal Thought Content: normal Judgment: judgment good Results POC Urinalysis 2 Dip (Clinic) Office Urine Glucose Negative Last Edit by Luz Maria Pope on 02/16/25 15:18 Office Urine Protein Negative Last Edit by Luz Maria Pope on 02/16/25 15:18 Coding Level of Care Code OB Routine Diagnoses Encounter for supervision of normal first in second trimester Z34.02 Normal : normal first Trimester: second trimester 23 weeks gestation of Z3A.23 Weeks of gestation: 23 weeks Assessment and Plan Assessment and Plan (1) Supervision of normal : Status: Acute Qualifiers: Normal : normal first Trimester: second trimester Qualified Code(s): Z34.02 - Encounter for supervision of normal first , second trimester Comment: [id number] ANN 06/14/25, : Mickey (2) : Status: Acute Qualifiers: Weeks of gestation: 23 weeks Qualified Code(s): Z3A.23 - 23 weeks gestation of Comment: Discussed genetic/carrier testing, NIPT low risk, male, normal anatomy Orders: Orders POC Urinalysis 2 Dip (Clinic) Today Z34.02 - Encounter for supervision of normal first , second trimester, Z3A.23 - 23 weeks gestation of CBC W/Diff, Automated Today Z34.02 - Encounter for supervision of normal first , second trimester, Z3A.23 - 23 weeks gestation of Glucose Challenge Gest 1H 50g Today Z13.1 - Encounter for screening for diabetes mellitus, Z34.02 - Encounter for supervision of normal first , second trimester, Z3A.23 - 23 weeks gestation of HIV Today Z34.02 - Encounter for supervision of normal first , second trimester, Z3A.23 - 23 weeks gestation of Syphilis Antibodies Today Z34.02 - Encounter for supervision of normal first , second trimester, Z3A.23 - 23 weeks gestation of Plan Details Additional Comments: ACOG trimester education reviewed and updated. see problem list details for updated plan management information and see below for orders placed at this visit. GA appropriate handout given. 02/16/25 1547 <Electronically signed by Kenyatta hollingsworth CNM> Date _ Kenyatta Colbert CNM Cosigner Signature: Date (if applicable) CC: ~ [place] [employer] [facility] Work Phone: 1(829) 693-742209-05-2025 Radiology Diagnostic study note [facility] Imaging Services [address] [place] [address] [id number] OB Anatomy w/ Transvaginal MR#: [id number] Acct: [id number] Name: BRAVO SULLIVAN Rep #: [id number] : 1995 F 30 From: Yusef Don MD PCP: Dr. Chad Bain MD Status: RE G CL Study:OB Anatomy w/ Transvaginal Date of Exam : 02/03/25 Exam# [id number] Ordering Dr: Romelia Gifford [facility]-C PROCEDURE: OB ANATOMY W/ TRANSVAGINAL 02/03/2025 REASON FOR EXAM: ANATOMY TECHNIQUE: Procedure Code: USOBANATVAG Modality: US Procedure: OB ANATOMY W/ TRANSVAGINAL COMPARISON: None FINDINGS Number: 1 Position: Breech Placental Position: Anterior and not low-lying Placental Abnormalities: No evidence of previa. DIMENSIONS: Biparietal Diameter: 5.03 cm: 21 weeks and 2 days: 47 percentile/ Head Circumference: 20.15 cm: 22 weeks and 2 days: 81 percentile/ Abdominal Circumference: 17.27 cm: 22 weeks and 2 days: 73rd percentile/ Femur Length: 3.47 cm: 21 weeks and 0 days: 29 percentile/ ESTIMATED WEIGHT: 440 g plus/-66 g ESTIMATED WEIGHT PERCENTILE (24+ weeks): 63 ESTIMATED GESTATIONAL AGE: Baseline: 21 weeks and 2 days By Ultrasound: 21 weeks and 6 days ESTIMATED DATE OF DELIVERY: Baseline: June 14, 2025 By Ultrasound: June 10, 2025 BIOPHYSICAL ASSESSMENT: Amniotic Fluid Volume: 5.7 cm Amniotic Fluid Index: Within normal limits. (8-24 cm normal range) Cardiac Motion: 160 beats per minute (average) Trunk and Limb Motion: Present. MATERNAL ANATOMY: Adnexa: Neither maternal ovary is successfully identified. Cervical Length (if measured): 4.9 cm ANATOMY: Spine: Unremarkable Cranium: Unremarkable Cerebellum: Unremarkable Cisterna Magna: Unremarkable Cavum Septum Pellucidi: Unremarkable Lateral Ventricles: Unremarkable Choroid Plexus: Unremarkable Midline Falx: Unremarkable Nuchal Fold: Unremarkable Upper Lip: Unremarkable Heart: Unremarkable Ventricular Outflow Tracts: Unremarkable Stomach: Unremarkable Kidneys: Unremarkable Bladder: Unremarkable Umbilical Cord: Unremarkable Extremities: Unremarkable US/OB Anatomy w/ Transvaginal IMPRESSION: Single live intrauterine gestation with a mean gestational age of 21 weeks and 6days. Reading Location: [place] [address] CC: RAND Gifford; Dr. Chad Bain MD ~ Food Scientist: Signed [facility]08-13-2025 Progress [facility]'s [address], [address] [place] [address] OFFICE VISIT Date of Service: 01/13/25 MR#: [id number] Acct: [id number] Name: BRAVO SULLIVAN Rep #: [id number] : 1995 Provider: Dr. Shari Paredes DO Age/Sex: 29/F [place] [facility] [place] Status: Signed Intake Vital Signs 12/25/24 15:28 01/13/25 13:24 01/13/25 13:25 Height 5 ft 5 in 5 ft 5 in 5 ft 5 in Weight: 167 lb 7 oz BMI 27.8 BP 110/76 Intake Visit Reasons: OB, watery discharge, cramping Shipping Point Inspector Required: No Is patient in pain?: No Allergies Penicillins Adverse Reaction (Verified 01/13/25 13:23) Vomiting Medications ?Medication ?Instructions ?Recorded ?Confirmed ?Type docosahexaenoic acid 200 mg mg PO 10/23/24 01/13/25 Hi story capsule ( DHA) Last Menstrual Period: 09/07/24 Zika: Zika virus screening: Negative : No PFSH PFSH Surgical History [place] teeth removed Family History Mother Breast cancer Grandmother Multiple sclerosis Grandmother Ovarian cancer Social History adopted: No household members: spouse housing: house current occupational status: employed 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 Relevant counseling for the gestational age provided. [...] specified related conditions, unspecified trimester 01/13/25 1347 e Velde DO> Date _ Sabina Myers Preston MELTON [facility] Signature: Date (if applicable) CC: ~ [facility]07-25-2025 Evaluation note* Diagnosis Onset Date Resolution Status Admit Date acute December 25 3:26pm Supervision of normal acute December 25, 2024 3:26pm acute January 13, 2 025 1:16pm Supervision of normal acute January 13 1:16pm acute January 20, 2 025 3:38pm Supervision of normal acute January 20 3:38pm acute February 3:10pm Supervision of normal acute February 16, 2025 3:10pm acute March 16, 2025 3:18pm Supervision of normal acute March 16 3:18pm [facility] Work Phone: 1([phone]) 133-486507-25-2025 Progress [facility] [address] [place] [address], [place] [address] OFFICE VISIT Date of Service: 12/25/24 MR#: [id number] Acct: [id number] Name: BRAVO SULLIVAN Rep #: [id number] : 1995 Provider: DAMASO Rios Age/Sex: 29/F Location: [facility] [place] Status: Signed Intake Vital Signs 10/27/24 11:49 11/25/24 10:48 12/25/24 15:28 Height 5 ft 5 in 5 ft 5 in 5 ft 5 in Weight: 169 lb BMI 28.1 BP 116/76 Intake Visit Reasons: 15wk ob Shipping Point Inspector Required: No Is patient in pain?: No Allergies Penicillins Adverse Reaction (Verified 12/25/24 15:29) Vomiting Medications ?Medication ?Instructions ?Recorded ?Confirmed ?Type docosahexaenoic acid 200 mg mg PO 10/23/24 12/25/24 Hi story capsule ( DHA) Last Menstrual Period: 09/07/24 Zika: Zika virus screening: Negative : No Have you fallen in the past year?: No PFSH PFSH Surgical History [place] teeth removed Family History Mother Breast cancer Grandmother Multiple sclerosis Grandmother Ovarian cancer Social History adopted: No household members: spouse housing: house current occupational status: employed 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 Relevant counseling for the gestational age provided. [...] information and see below for orders placed atthis visit. [place] appropriate handout given. Clinical Quality Measures Falls Risk Screening/Assistive Devices Have you fallen in the past year?: No 12/25/24 1553 ns DAMASO> Date _ Kristen Rios CNM Cosigner Signature: Date (if applicable) CC: ~ [facility]07-25-2025 Progress note Author Kristen Rios [facility] [place] [facility] Note Date/Time December 25, 2024 3:[address] [facility] [place] [facility] [address], [address] [place] [address] OFFICE VISIT Date of Service: 12/25/24 MR#: [id number] Acct: [id number] Name: BRAVO SULLIVAN Rep #: [id number] : 1995 Provider: DAMASO Rios Age/Sex: 29/F Location: [facility] [place] Status: Signed Intake Vital Signs 10/27/24 11:49 11/25/24 10:48 12/25/24 15:28 Height 5 ft 5 in 5 ft 5 in 5 ft 5 in Weight: 169 lb BMI 28.1 BP 116/76 Intake Visit Reasons: 15wk ob Shipping Point Inspector Required: No Is patient in pain?: No Allergies Penicillins Adverse Reaction (Verified 12/25/24 15:29) Vomiting Medications ?Medication ?Instructions ?Recorded ?Confirmed ?Type docosahexaenoic acid 200 mg mg PO 10/23/24 12/25/24 Hi story capsule ( DHA) Last Menstrual Period: 09/07/24 Zika: Zika virus screening: Negative : No Have you fallen in the past year?: No PFSH PFSH Surgical History [place] teeth removed Family History Mother Breast cancer Grandmother Multiple sclerosis Grandmother Ovarian cancer Social History adopted: No household members: spouse housing: house current occupational status: employed 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 Work Phone: 1([phone]) 177-252706-25-2025 Evaluation note* Diagnosis Onset Date Resolution Status Admit Date acute November 25 10:45am Supervision of normal acute November 25, 2024 10:45am acute December 25 3:26pm Supervision of normal acute December 25, 2024 3:26pm acute January 13, 2 025 1:16pm Supervision of normal acute January 13 1:16pm acute January 20, 2 025 3:38pm Supervision of normal acute January 20 3:38pm acute February 3:10pm Supervision of normal acute February 16, 2025 3:10pm [facility] Work Phone: 1(982) 610-693006-25-2025 Progress [facility] [place] [facility] [address] [place] [address], [address] [place] [address] OFFICE VISIT Date of Service: 11/25/24 MR#: [id number] Acct: [id number] Name: BRAVO SULLIVAN Rep #: [id number] : 1995 Provider: Dr. Shari Paredes DO Age/Sex: 29/F Location: [facility] [place] Status: Signed Intake Vital Signs 10/22/24 12:51 10/27/24 11:49 11/25/24 10:48 11/25/24 10:48 Height 5 ft 5 in 5 ft 5 in 5 ft 5 in 5 ft 5 in Weight: 170 lb 8 oz BMI 28.3 BP 103/64 Intake Visit Reasons: 11wk OB Shipping Point Inspector Required: No Is patient in pain?: No Allergies Penicillins Adverse Reaction (Verified 11/25/24 10:47) Vomiting Medications ?Medication ?Instructions ?Recorded ?Confirmed ?Type docosahexaenoic acid 200 mg mg PO 10/23/24 11/25/24 Hi story capsule ( DHA) Last Menstrual Period: 09/07/24 Zika: Zika virus screening: Negative : No PFSH PFSH Surgical History [place] teeth removed Family History Mother Breast cancer Grandmother Multiple sclerosis Grandmother Ovarian cancer Social History adopted: No household members: spouse housing: house current occupational status: employed 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 pets and animals: No history of recent travel: Yes ([place]) out of state: Yes out of country: [...] 5-6 times per week duration: 15-30 minutes/day sajan/evangelical: Confucianism seatbelt use: always do you feel safe at home: Yes additional social history: : Mickey - [employer] History 1 Elective abortions Hx Para Spontaneous [...] Office Urine Protein Negative Last Edit by Arablela Cardenas on 11/25/24 10: 53 Coding Level [...] 2 Dip (Clinic) Today 11/25/24 1114 e Velde DO> Date _ Sabina Paredes DO [facility] Signature: Date (if applicable) CC: ~ [facility]05-23-2025 Evaluation note* Diagnosis Onset Date Resolution Status Admit Date acute October 23, 2024 8:07am Supervision of normal acut e October 23, 2024 8:07am acute October 27, 2024 11:46am Supervision of normal acut e October 27, 2024 11:46am [facility] Work Phone: [phone] Evaluation note* Diagnosis Onset Date Resolution Status Admit Date acute October 23, 2024 8:07am Supervision of normal acut e October 23, 2024 8:07am acute October 27, 2024 11:46am Supervision of normal acut e October 27, 2024 11:46am acute November 25 10:45am Supervision of normal acut e November 25, 2024 10:45am [facility] Work Phone: [phone]) 788-970705-23-2025 Evaluation note* Diagnosis Onset Date Resolution Status Admit Date acute October 23, 2024 8:07am Supervision of normal acut e October 23, 2024 8:07am acute October 27, 2024 11:46am Supervision of normal acut e October 27, 2024 11:46am acute November 25 10:45am Supervision of normal acut e November 25, 2024 10:45am acute December 25 3:26pm Supervision of normal acut e December 25, 2024 3:26pm [facility] Work Phone: [phone]) 699-979005-23-2025 Evaluation note* Diagnosis Onset Date Resolution Status [...] normal acut e January 13, 2025 1:16pm [place] [employer] [facility] Work Phone: 1([phone]) 355-674105-23-2025 Evaluation note* Diagnosis Onset Date Resolution Status [...] normal acut e January 13, 2025 1:16pm acute January 20, 2 025 3:38pm Supervision of normal acut e January 20, 2025 3:38pm [facility] Work Phone: [phone]) [phone] Evaluation note* Diagnosis Onset Date Resolution Status Admit Date acute October 23, 2024 8:07am Supervision of normal acute October 23, 2024 8 :07am acute October 27, 2024 11:46am Supervision of normal acute October 27, 2024 1 1:46am acute November 25 10:45am Supervision of normal acute November 25, 2024 10:45am acute December 25 3:26pm Supervision of normal acute December 25, 2024 3:26pm acute January 13, 2 025 1:16pm Supervision of normal acute January 13 1:16pm acute January 20, 2 025 3:38pm Supervision of normal acute January 20 3:38pm acute February 3:10pm Supervision of normal acute February 16, 2025 3:10pm [facility] Work Phone: Evaluation noteNo assessment information available [facility] Work Phone: Hospital Discharge instructions Additional Instructions Please take the prednisone as directed to control any further allergic reaction/inflammation. You may also take 1 Benadryl up to 3 times a day and also use 1 20mg Pepcid twice a day if you need further allergic reaction controlWBlanch[facility] Work Phone: Progress note Author Sabina Johnston [facility] Note Date/Time November 25, 2024 11:1 4am [facility] [place] [facility] [address] [place] [address], [address] [place] [address] OFFICE VISIT Date of Service: 11/25/24 MR#: [id number] Acct: [id number] Name: BRAVO SULLIVAN Rep #: [id number] : 1995 Provider: Dr. Shari Paredes DO Age/Sex: 29/F Location: [facility] Status: Signed Intake Vital Signs 10/22/24 12:51 10/27/24 11:49 11/25/24 10:48 11/25/24 10:48 Height 5 ft 5 in 5 ft 5 in 5 ft 5 in 5 ft 5 in Weight: 170 lb 8 oz BMI 28.3 BP 103/64 Intake Visit Reasons: 11wk OB Shipping Point Inspector Required: No Is patient in pain?: No Allergies Penicillins Adverse Reaction (Verified 11/25/24 10:47) Vomiting Medications ?Medication ?Instructions ?Recorded ?Confirmed ?Type docosahexaenoic acid 200 mg mg PO 10/23/24 11/25/24 Hi story capsule ( DHA) Last Menstrual Period: 09/07/24 Zika: Zika virus screening: Negative : No PFSH PFSH Surgical History [place] teeth removed Family History Mother Breast cancer Grandmother Multiple sclerosis Grandmother Ovarian cancer Social History adopted: No household members: spouse housing: house current occupational status: employed 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 Work Phone: Progress note Author Sabina Johnston [facility] Note Date/Time January 13, 2025 1: 47pm [facility] [address], [address] [place] [address] OFFICE VISIT Date of Service: 01/13/25 MR#: [id number] Acct: [id number] Name: LAURIEBRAVO SHELDON Rep #: [id number] : 1995 Provider: Dr. Shari Paredes DO Age/Sex: 29/F Location: [facility] [place] Status: Signed Intake Vital Signs 12/25/24 15:28 01/13/25 13:24 01/13/25 13:25 Height 5 ft 5 in 5 ft 5 in 5 ft 5 in Weight: 167 lb 7 oz BMI 27.8 BP 110/76 Intake Visit Reasons: OB, watery discharge, cramping Shipping Point Inspector Required: No Is patient in pain?: No Allergies Penicillins Adverse Reaction (Verified 01/13/25 13:23) Vomiting Medications ?Medication ?Instructions ?Recorded ?Confirmed ?Type docosahexaenoic acid 200 mg mg PO 10/23/24 01/13/25 Hi story capsule ( DHA) Last Menstrual Period: 09/07/24 Zika: Zika virus screening: Negative : No PFSH PFSH Surgical History [place] teeth removed Family History Mother Breast cancer Grandmother Multiple sclerosis Grandmother Ovarian cancer Social History adopted: No household members: spouse housing: house current occupational status: employed 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 pets and animals: No history of recent travel: Yes ([place]) out of state: Yes out of country: [...] 5-6 times per week duration: 15-30 minutes/day sajan/evangelical: Confucianism seatbelt use: always do you feel safe at home: Yes additional social history: : Mickey - Gregorio Hickman History 1 Elective abortions Hx Para Spontaneous [...] by Sabina James DO> Date _ Sabina HopeSaumelsigner Signature: Date (if applicable) CC: ~ [facility] Work Phone: Reason for referral (narrative)No reason for referral information availableBlVencor Hospital Work Phone: Chief Complaint and Reason for [...] 16pm Supervision of normal January 012024 1:16pm Chief Complaint Admit Date Pre new ob, confirmation, vitals October 8:07am NOB LMP 4/7 per SM October 27, 2024 11:46 am 11wk OB November 25, 2024 10:4 5am 15wk ob December 25, 2024 3:26 pm OB, watery discharge, cramping January 132024 1:16pm 19wk ob January 20, 2025 3: 38pm Reason for Visit Admit Date October 23, 2024 8:07a m Supervision of normal October 8:07am October 27, 2024 11:46 am Supervision of normal October 11:46am November 25, 2024 10:4 5am Supervision of normal November 10:45am December 25, 2024 3:26 pm Supervision of normal December 3:26pm January 13, 2025 1: 16pm Supervision of normal January 012024 1:16pm January 20, 2025 3: 38pm Supervision of normal January 022024 3:38pm Chief Complaint Admit Date Pre new ob, confirmation, vitals October 8:07am NOB LMP 4/7 per SM October 27, 2024 11:46 am 11wk OB November 25, 2024 10:4 5am 15wk ob December 25, 2024 3:26 pm OB, watery discharge, cramping January 132024 1:16pm 19wk ob January 20, 2025 3: 38pm ANATOMY February 03, 2025 3:13pm 23wk ob February 16, 2025 3:10pm Reason for Visit Admit Date October 23, 2024 8:07a m Supervision of normal October 8:07am October 27, 2024 11:46 am Supervision of normal October 11:46am November 25, 2024 10:4 5am Supervision of normal November 10:45am December 25, 2024 3:26 pm Supervision of normal December 3:26pm January 13, 2025 1: 16pm Supervision of normal January 012024 1:16pm January 20, 2025 3: 38pm Supervision of normal January 022024 3:38pm February 16, 2025 3:10pm Supervision of normal [facility] r 2024 3:10pm Chief Complaint Admit Date 11wk OB November 25, 2024 10:4 5am 15wk ob December 25, 2024 3:26 pm OB, watery discharge, cramping January 132024 1:16pm 19wk ob January 20, 2025 3: 38pm ANATOMY February 03, 2025 3:13pm 23 WK 1D OB February 16, 2025 3:10pm Reason for Visit Admit Date November 25, 2024 10:4 5am Supervision of normal November 10:45am December 25, 2024 3:26 pm Supervision of normal December 3:26pm January 13, 2025 1: 16pm Supervision of normal January 01 3t2024 1:16pm January 20, 2025 3: 38pm Supervision of normal January 022024 3:38pm February 16, 2025 3:10pm Supervision of normal [facility] r 2024 3:10pm Chief Complaint Admit Date 15wk ob December 25, 2024 3:26 pm OB, watery discharge, cramping January 132024 1:16pm 19wk ob January 20, 2025 3: 38pm ANATOMY February 03, 2025 3:13pm 23 WK 1D OB February 16, 2025 3:10pm 27wk1d ob/glucose March 16, 2025 3 :18pm Reason for Visit Admit Date December 25, 2024 3:26 pm Supervision of normal December 3:26pm January 13, 2025 1: 16pm Supervision of normal January 012024 1:16pm January 20, 2025 3: 38pm Supervision of normal January 022024 3:38pm February 16, 2025 3:10pm Supervision of [facility] 3:10pm March 16, 2025 3 :18pm Supervision of normal March 16, 2025 3:18pm Advance Directives No Advanced Directives Records Found Advance Directive Response Recorded Date/ Time Living Will No January 25 9:55pm Power of Plastic Machine Operator No January 25 022 9:55pm Advance Directive Response Recorded Date/ Time Living Will No July 20 024 10:57pm Power of Plastic Machine Operator No July 20, 2023 10:57pm Family History No Family History Records Found Relationship Condition Age at Onset Recorded Date/T celeste mother Malignant neoplasm of breast Unknown grandmother Multiple sclerosis Unknown grandmother Malignant neoplasm of ovary Unknown Summary Purpose Additional Source Comments Goals (unrecognized section and content) Type Care Experience Labor Preferences-CB /BF classes: []labor support person: []labor intervention preferences: []pain management options preferred: []cut cord/dad catch: []: []PP control planned: []discussed possible routes of delivery and associated risks: []special requests: [] Care Teams (unrecognized sec tion and content) [...] January 13, 2025 End: January 13, 2025 Team Status: Active Member Role/Relationship Status Dates Dr. Chad Bain MD Primary Care Provider Active Start: January 13, 2025 Dr. Sabina Paredes DO Attending Provider Activ e Start: January 13, 2025 Team Status: Inactive Member Role/Relationship Status Dates Dr. Chad Bain MD Primary Care Provider Active Start: January 20, 2025 End: January 20, 2025 Dr. Chad Bain MD Referring Provider Active Start: January 20, 2025 End: January 20, 2025 Romelia Gifford [employer], [employer]-C Attending Provider Active Start: January 20, 2025 End: January 20, 2025 Team Status: Inactive Member Role/Relationship Status Dates Dr. Chad Bain MD Primary Care Provider Active Start: January 13, 2025 End: January 13, 2025 Dr. Sabina Paredes DO Attending Provider Activ e Start: January 13, 2025 End: January 13, 2025 Team Status: Active Member Role/Relationship Status Dates Dr. Chad Bain MD Primary Care Provider Active Start: February 03, 2025 Romelia Gifford [employer], [employer]-C Attending Provider Active Start: February 03, 2025 Romelia Gifford [employer], [employer]-C Referring Provider Active Start: February 03, 2025 Team Status: Inactive Member Role/Relationship Status Dates Dr. Chad Bain MD Primary Care Provider Active Start: February 16, 2025 End: February 16, 2025 Dr. Chad Bain MD Referring Provider Active Start: February 16, 2025 End: February 16, 2025 Kenyatta Colbert CNM Attending Provider Active S tart: February 16, 2025 End: February 16, 2025 Team Status: Active Member Role/Relationship Status Dates Dr. Chad Bain MD Primary care physician Active Team Status: Inactive Member Role/Relationship Status Dates Dr. Chad Bain MD Primary care physician Active Start: November 25, 2024 End: November 25, 2024 Dr. Chad Bain MD Referring Provider Active Start: November 25, 2024 End: November 25, 2024 Dr. Sabina Paredes DO Attending physician Acti ve Start: November 25, 2024 End: November 25, 2024 Team Status: Inactive Member Role/Relationship Status Dates Dr. Chad Bain MD Primary care physician Active Start: November 25, 2024 End: November 25, 2024 Dr. Sabina Paredes DO Attending physician Acti ve Start: November 25, 2024 End: November 25, 2024 Dr. Sabina Paredes DO Referring Provider Activ e Start: November 25, 2024 End: November 25, 2024 Team Status: Inactive Member Role/Relationship Status Dates Dr. Chad Bain MD Primary care physician Active Start: December 25, 2024 End: December 25, 2024 Dr. Chad Bain MD Referring Provider Active Start: December 25, 2024 End: December 25, 2024 Kristen Rios CNM Attending physician Active Start: December 25, 2024 End: December 25, 2024 Team Status: Inactive Member Role/Relationship Status Dates Dr. Chad Bain MD Primary care physician Active Start: January 13, 2025 End: January 13, 2025 Dr. Chad Bain MD Referring Provider Active Start: January 13, 2025 End: January 13, 2025 Dr. Sabina Paredes DO Attending physician Acti ve Start: January 13, 2025 End: January 13, 2025 Team Status: Inactive Member Role/Relationship Status Dates Dr. Chad Bain MD Primary care physician Active Start: January 13, 2025 End: January 13, 2025 Dr. Sabina Paredes DO Attending physician Acti ve Start: January 13, 2025 End: January 13, 2025 Team Status: Inactive Member Role/Relationship Status Dates Dr. Chad Bain MD Primary care physician Active Start: January 20, 2025 End: January 20, 2025 Dr. Chad Bain MD Referring Provider Active Start: January 20, 2025 End: January 20, 2025 Romelia Gifford [employer], [employer]-C Attending physician Active Start: January 20, 2025 End: January 20, 2025 Team Status: Inactive Member Role/Relationship Status Dates Dr. Chad Bain MD Primary care physician Active Start: February 03, 2025 End: February 03, 2025 Romelia Gifford [employer], [employer]-C Attending physician Active Start: February 03, 2025 End: February 03, 2025 Romelia Gifford [employer], [employer]-C Referring Provider Active Start: February 03, 2025 End: February 03, 2025 Team Status: Inactive Member Role/Relationship Status Dates Dr. Chad Bain MD Primary care physician Active Start: February 16, 2025 End: February 16, 2025 Dr. Chad Bain MD Referring Provider Active Start: February 16, 2025 End: February 16, 2025 Kenyatta Colbert CNM Attending physician Active Start: February 16, 2025 End: February 16, 2025 Team Status: Inactive Member Role/Relationship Status Dates Dr. Chad Bain MD Primary care physician Active Start: December 25, 2024 End: December 25, 2024 Dr. Chad Bain MD Referring Provider Active Start: December 25, 2024 End: December 25, 2024 Kristen Rios CNM Attending physician Active Start: December 25, 2024 End: December 25, 2024 Team Status: Inactive Member Role/Relationship Status Dates Dr. Chad Bain MD Primary care physician Active Start: January 13, 2025 End: January 13, 2025 Dr. Chad Bain MD Referring Provider Active Start: January 13, 2025 End: January 13, 2025 Dr. Sabina Paredes DO Attending physician Acti ve Start: January 13, 2025 End: January 13, 2025 Team Status: Inactive Member Role/Relationship Status Dates Dr. Chad Bain MD Primary care physician Active Start: January 13, 2025 End: January 13, 2025 Dr. Sabina Paredes DO Attending physician Acti ve Start: January 13, 2025 End: January 13, 2025 Team Status: Inactive Member Role/Relationship Status Dates Dr. Chad Bain MD Primary care physician Active Start: January 20, 2025 End: January 20, 2025 Dr. Chad Bain MD Referring Provider Active Start: January 20, 2025 End: January 20, 2025 Romelia Gifford [employer], [employer]-C Attending physician Active Start: January 20, 2025 End: January 20, 2025 Team Status: Inactive Member Role/Relationship Status Dates Dr. Chad Bain MD Primary care physician Active Start: February 03, 2025 End: February 03, 2025 Romelia Gifford [employer], [employer]-C Attending physician Active Start: February 03, 2025 End: February 03, 2025 Romelia Gifford [employer], [employer]-C Referring Provider Active Start: February 03, 2025 End: February 03, 2025 Team Status: Inactive Member Role/Relationship Status Dates Dr. Chad Bain MD Primary care physician Active Start: February 16, 2025 End: February 16, 2025 Dr. Chad Bain MD Referring Provider Active Start: February 16, 2025 End: February 16, 2025 Kenyatta Colbert CNM Attending physician Active Start: February 16, 2025 End: February 16, 2025 Team Status: Inactive Member Role/Relationship Status Dates Dr. Chad Bain MD Primary care physician Active Start: March 16, 2025 End: March 16, 2025 Dr. Chad Bain MD Referring Provider Active Start: March 16, 2025 End: March 16, 2025 Dr. Bailee Perez MD Attending physician Active Start: March 16, 2025 End: March 16, 2025 Team Status: Active Member Role/Relationship Status Dates Dr. Chad Bain MD Primary care physician Active Start: March 16, 2025 Dr. Bailee Perez MD Attending physician Active Start: March 16, 2025 Dr. Bailee Perez MD Referring Provider Active Start: March 16, 2025 INFORMATION SOURCE (unrecogn ized section and content) DATE CREATED AUTHOR 04/10/2025 [facility] FOR RECORDS PERTAINING TO PATIENTS WHO [...] BE BASED ON THE PRIMARY CLINICAL RECORDS. [facility]. provides no warranty or guarantee of the accuracy or completeness of information in this document.
== END | disposition home or self-care (01) ==
LOC: LABSPEC 12:21
PROVIDERS: PCP Family Medicine; Visit Provider Nurse Practitioner Women's Health
DX: Z34.03 Encounter for supervision of normal first pregnancy, third trimester (principal)
CPT/HCPCS: 87081